=== PATIENT | male | born 1930 | race Caucasian/White ===

== ENCOUNTER 2016-11-12 01:27 | Emergency (ER) | payer MEDICARE ==
[~2016-11-12] VITALS: Ht 182.8 cm; Wt 106.6 kg
[~2016-11-12 01:27] MED LIST: ALPHA LIPOIC; AMARYL2 MG PO; ASA; ASPIRIN FOR CHI81 MG PO; CARVEDILOL25 MG PO; CELEBREX100 MG PO; CINNAMON; DILTIAZEM CD120 MG; DILTIAZEM CD240 MG PO; GABAPENTIN100 M2 PO; GLIMEPIRIDE; JANUVIA100 MG PO; JANUVIA25 MG; LOVASTATIN; LOVASTATIN20 MG PO; METFORMIN500 MG; NEURONTIN100 MG PO; NORTRIPTYLINE10 MG; OMEPRAZOLE20 MG; PROSCAR5 MG; QUINAPRIL5 MG; TAMSULOSIN HYD0.4 MG; TOPIRAMATE25 M1 PO; TRAZODONE HCL50 MG; WARFARIN SOD5 MG; ZOLOFT100 MG; ZOLOFT100 MG PO; [UNRECOGNIZED DRUG - OTHER]
[2016-11-12 01:54] LABS: BASO % 0.3 % (0.0-1.0); EOS # 0.6 10*3/uL (0.0-0.4); EOS % 5.5 % (1.0-4.0); HEMATOCRIT 28.7 % (42.0-52.0); HEMOGLOBIN 9.3 g/dl (14.0-18.0); IG # 0.1 10*3/uL (0.0-0.1); LYMPH # 1.7 10*3/uL (1.3-4.4); LYMPH % 14.2 % (27.0-41.0); MEAN CELL VOLUME 77.6 fl (80.0-94.0); MEAN CORPUSCULAR HGB 25.1 pg (27.0-31.0); MEAN CORPUSCULAR HGB CONC 32.4 g/dl (33.0-37.0); MEAN PLATELET VOLUME 9.3 fl (9.6-12.3); MONO # 1.1 10*3/uL (0.1-1.0); MONO % 9.3 % (3.0-9.0); NEUT # 8.2 10*3/uL (2.3-7.9); NEUT % 70.2 % (47.0-73.0); PLATELET COUNT AUTOMATED 218 10*3/uL (130-400); RED CELL DISTRI WIDTH 17.1 % (0-14.5); WHITE BLOOD COUNT 11.7 10*3/uL (4.8-10.8)
[2016-11-12 02:09] LABS: BILIRUBIN NEGATIVE (NEGATIVE); BLOOD NEGATIVE (NEGATIVE); CLARITY SL CLOUDY (CLEAR); COLOR YELLOW (YELLOW); GLUCOSE NEGATIVE (NEGATIVE); KETONE NEGATIVE (NEGATIVE); LEUKO ESTERASE NEGATIVE (NEGATIVE); NITRITE NEGATIVE (NEGATIVE); PH 5.5 (5.0-9.0); PROTEIN TRACE (NEGATIVE); SPECIFIC GRAVITY 1.015 (1.005-1.030); UROBILINOGEN 0.2 E.U./dl (0.2-1.0)
[2016-11-12 02:10] LABS: ALBUMIN 2.6 gm/dl (3.1-4.5); ALKALINE PHOSPHATASE 72 U/L (45-117); BILIRUBIN, TOTAL 0.3 mg/dl (0.2-1.0); BUN 22 mg/dl (7-24); CARBON DIOXIDE 20 mmol/L (21-32); CHLORIDE 106 mmol/L (98-107); EST GLOM FILT AFRICAN AMERICAN > 60 ml/min; GLUCOSE 207 mg/dL (65-99); POTASSIUM 3.9 mmol/L (3.5-5.1); SGOT/AST 28 IU/L (3-35); SGPT/ALT 33 U/L (12-78); SODIUM 133 mmol/L (136-145); TOTAL PROTEIN 6.4 gm/dL (6.4-8.2)
[2016-11-12] MEDS ORDERED: ATARAX,VISTARIL50 MG PO (02:11)
[2016-11-12] MEDS ORDERED: B COMPLEX1 EACH PO (02:12)
[2016-11-12] MEDS ORDERED: DOCUSATE SODIU100 M2 PO (02:12)
[2016-11-12] MEDS ORDERED: ESCITALOPRAM OX20 MG PO (02:13)
[2016-11-12] MEDS ORDERED: QUINAPRIL5 MG PO (02:13)
[2016-11-12 02:15] LABS: BACTERIA 2+; RBC 16-20 rbc/hpf (0-2); URINE REFLEX COMMENT YES (NO); WBC 16-20 wbc/hpf (0-5)
[2016-11-12] MEDS ORDERED: REMERON15 M2 PO (02:15)
[2016-11-12] MEDS ORDERED: TOPAMAX25 M3 PO (02:15)
[2016-11-12] MEDS ORDERED: LEVOTHYROXIN0.075 M1 PO (02:16)
[2016-11-12] MEDS ORDERED: LEVEMIR FLEX100 U/ML SC (02:16)
[2016-11-12 03:32] VITALS: BP 113/50
[2016-11-12] MEDS ORDERED: CIPRO250 MG PO (04:16)
== END 2016-11-12 04:54 | disposition home or self-care (01) ==
LOC: ED 01:27
PROVIDERS: Physician Assistant
DX: N39.0 Urinary tract infection, site not specified (principal); Z88.8 Allergy status to other drugs, medicaments and biological substances; Z79.82 Long term (current) use of aspirin; Z79.899 Other long term (current) drug therapy; Z79.02 Long term (current) use of antithrombotics/antiplatelets

== ENCOUNTER → 2017-04-09 | Outpatient (CLI) | payer MEDICARE ==
[~2017-04-09] MED LIST changes: +ATARAX,VISTARIL50 MG PO; +B COMPLEX1 EACH PO; +CIPRO250 MG PO; +DOCUSATE SODIU100 M2 PO; +ESCITALOPRAM OX20 MG PO; +LEVEMIR FLEX100 U/ML SC; +LEVOTHYROXIN0.075 M1 PO; +QUINAPRIL5 MG PO; +REMERON15 M2 PO; +TOPAMAX25 M3 PO
[2017-04-09 10:50] LABS: ALBUMIN 3.1 gm/dl (3.1-4.5); CREATININE 1.44 mg/dL (0.70-1.30); POTASSIUM 4.3 mmol/L (3.5-5.1); TOTAL PROTEIN 7.4 gm/dL (6.4-8.2)
== END | disposition home or self-care (01) ==
LOC: LAB 09:54 → MRI 10:00
DX: M48.061 Spinal stenosis, lumbar region without neurogenic claudication (principal); M41.26 Other idiopathic scoliosis, lumbar region

== ENCOUNTER → 2017-06-04 | Outpatient (CLI) | payer MEDICARE | END | disposition home or self-care (01) | LOC: MRI 01:37 | DX: R26.81 Unsteadiness on feet (principal); M79.604 Pain in right leg; R53.1 Weakness; I10 Essential (primary) hypertension; E11.9 Type 2 diabetes mellitus without complications ==

== ENCOUNTER → 2017-08-27 | Outpatient (CLI) | payer MEDICARE ==
--- NOTE | ~2017-08-27 | SLPPOC ---
[place], [place] LUMP ROOM SUPERVISOR PLAN OF CARE NAME: JUANITA RODRÍGUEZ UNIT #: [id number] ROOM: DOCTOR: JERRY ERICKSON MD Speech Language Pathology Plan of Care Page 1 1 (Initial Evaluation) of Patient Name: JUANITA RODRÍGUEZ Date: 08/27/2017 11:52 AM : 1930 SOC Date: 08/27/2017 [facility] Provider #: [id number] Treating Clinician: FLACO Salgado-LUMP ROOM SUPERVISOR Referring Physician: JERRY ERICKSON Medicare #: 1 MEBFHFMD Visits From SOC: Onset Date Description Code Primary Diagnosis: 08/22/2017 A0000 NO DIAGNOSIS SENT TO THE [facility] INTERFACE Subjective Comments: Initial evaluation created to initiate the electronic medical record. Please see [place] for details. Initial Level Goals Functional Limitation Reporting Swallowing G8996 - Swallowing functional limitation, current status at therapy episode outset and at reporting intervals Current Status: CK - At least 40 percent but less than 60 percent impaired, limited or restricted G8997 - Swallowing functional limitation, projected goal status, at therapy episode outset, at reporting intervals, and at discharge or to end reporting Goal Status: CK - At least 40 percent but less than 60 percent impaired, limited or restricted G8998 - Swallowing functional limitation, discharge status, at discharge from therapy or to end reporting Discharge Status: CK - At least 40 percent but less than 60 percent impaired, limited or restricted 08/27/2017 11:53:23 AM JERRY ERICKSNO Date/Time FLACO Salgado-LUMP ROOM SUPERVISOR Date I certify the need for these services furnished under this plan of treatment while under my care. State License #: [id number] CM:SLPPOC 1157 1157 IS THERAPY [facility]
--- NOTE | ~2017-08-27 | SLPIE ---
[place], [place] STICK ROLLER INITIAL EVALUATION NAME: JUANITA RODRÍGUEZ UNIT #: [id number] ROOM: DOCTOR: JERRY ERICKSON MD Speech Language Pathology Initial Evaluation Page 1 1 of Patient Name: JUANITA RODRÍGUEZ Date: 08/27/2017 11:52 AM : 1930 SOC Date: 08/27/2017 [facility] Provider #: [id number] Treating Clinician: FLACO Salgado-ADRIANA Referring Physician: JERRY ERICKSON Patient Information Address: [address] [place] [address] Physician: JERRY ERICKSON Physician #: [facility], [facility], Zip: [place] [address] Occupation: Unknown # of Approved Visits: 0 Gender: Male [employer] Former: LONDON RODRÍGUEZ Medicare #: MEBFHFMD Rehabilitation Information / History Onset Date Code Description Primary Diagnosis: 08/22/2017 A0000 NO DIAGNOSIS SENT TO THE [facility] INTERFACE Subjective Comments: Initial evaluation created to initiate the electronic medical record. Please see ufindads for details. Rehabilitation Information / History Clinical Findings Functional Goals Functional Limitation Reporting Swallowing G8996 - Swallowing functional limitation, current status at therapy episode outset and at reporting intervals Current Status: CK - At least 40 percent but less than 60 percent impaired, limited or restricted G8997 - Swallowing functional limitation, projected goal status, at therapy episode outset, at reporting intervals, and at discharge or to end reporting Goal Status: CK - At least 40 percent but less than 60 percent impaired, limited or restricted G8998 - Swallowing functional limitation, discharge status, at discharge from therapy or to end reporting Discharge Status: CK - At least 40 percent but less than 60 percent impaired, limited or restricted 08/27/2017 11:53:23 AM FLACO Salgado-ADRIANA Date/Time [place], [place] STICK ROLLER INITIAL EVALUATION NAME: JUANITA RODRÍGUEZ UNIT #: [id number] ROOM: DOCTOR: JERRY ERICKSON MD [facility] License #: [id number] CM:BONI 1157 1157 IS THERAPY [facility]
--- NOTE | ~2017-08-27 | PROC NOTE ---
[place], [place] PROCEDURE NOTE NAME: JUANITA RODRÍGUEZ [facility] #: [id number] UNIT #: [id number] ROOM: DOCTOR: AUSTEN EDWARDS BIRTHDATE: [birth year] DOS: 08/27/2017 MODIFIED BARIUM SWALLOW. ORDERING PHYSICIAN: Dr. García. RADIOLOGIST: Dr. Larsen. BACKGROUND INFORMATION: The patient, an 86-year-old male was seen for modified barium swallow. This test was ordered to determine candidacy for thin liquids. The patient is currently receiving therapy at [facility]. Reports indicate that the patient was hospitalized in [place]. Medical history is significant for respiratory failure with hypoxia, ataxia, dysphagia and GERD. During hospitalization, he underwent prior modified barium swallow studies. He was recommended n.p.o.; however, the patient and spouse declined as they wish for patient to continue eating orally. He has been showing progress. He is currently on a regular diet with honey-thick liquids. The patient is scheduled to be discharged to home soon and would like to be able to resume thin liquids if possible. Therefore, this assessment is being conducted. The patient was alert and able to follow all commands. On this date, respiratory status was within normal limits. Oral peripheral examination revealed presence of upper and lower dentures with adequate fit reported. Lingual, labial, and buccal skills were within normal limits in terms of strength, range of motion, and coordination. The patient was able to volitionally cough and swallow. METHODS AND MATERIALS USED FOR THE EXAM: The patient was positioned in the lateral plane and the examination was viewed under fluoroscopy. The patient was presented with a variety of consistencies to assess swallowing skills including applesauce mixed with barium presented in half teaspoon amounts, barium-coated cookie given in bite size piece and nectar and honey-thick barium taken by cup and in single sip size amounts. ORAL PHASE: The patient achieved adequate labial seal around cup and spoon with no anterior loss. Bolus formation and transit were adequate. Tongue to palate contact was adequate. Tongue to posterior pharyngeal wall contact was moderately impaired. [place] functioning was intact. PHARYNGEAL PHASE: The pharyngeal swallow occurred within a timely manner. Laryngeal elevation and epiglottic function were reduced with nectar thick liquid and silent aspiration during the swallow occurred with nectar thick liquid. No penetration or aspiration occurred with any other consistency. Due to the patient's reduced tongue to posterior pharyngeal wall contact, pooling in the vallecula did occur with consistencies given. He was able to clear most of the residue with cues to re-swallow. ESOPHAGEAL PHASE: This phase of the swallow was not formally assessed during this exam. IMPRESSIONS AND RECOMMENDATIONS: Based upon assessment results, this 86-year-old patient presents with a mild oral and moderate pharyngeal dysphagia. [place], [place] PROCEDURE NOTE NAME: JUANITA RODRÍGUEZ UNIT #: [id number] ROOM: DOCTOR: AUSTEN EDWARDS BIRTHDATE: [birth year] It is recommended that he continue with regular diet and honey-thick liquids with use of strategies such as alternating liquids and solids and double swallows. Recommend the patient continue with dysphagia therapy and undergo a followup modified barium swallow in 4 weeks to determine progress. Results and recommendations were shared with the patient and his and they verbalized understanding. A written copy of results and recommendations was provided for education of [facility] staff. Thank you very much for this referral. Should you have any questions regarding this patient, please contact the speech pathologist at [phone]. AUSTEN EDWARDS JERRY GARCÍA MD CM:PROCNOTE:PROCEDURE NOTE 1140 1253 AUSTEN EDWARDS
--- NOTE | ~2017-08-27 | SLPPN ---
[place], [place] SPECIAL EDUCATION PARAPROFESSIONAL PROGRESS NOTE NAME: JUANITA RODRÍGUEZ UNIT #: [id number] ROOM: DOCTOR: JERRY ERICKSON MD Speech Language Pathology Treatment Note Page 1 1 of Patient Name: JUANITA RODRÍGUEZ Date: 08/27/2017 11:53 AM : 1930 SOC Date: 08/27/2017 [facility]: [facility] Provider #: [id number] Treating Clinician: FLACO Salgado-ADRIANA Referring Physician: JERRY ERICKSON Onset Date Description Code Primary Diagnosis: 08/22/2017 A0000 NO DIAGNOSIS SENT TO THE [facility] INTERFACE Time In: 10:00 AM Time Out: 11:00 AM SPECIAL EDUCATION PARAPROFESSIONAL Interventions and CPT Codes Consisted of: CPT Code Modifiers Minutes Units MOTION FLUOROSCOPY/SWALLOW 79143 60 1 Total Minutes: 60 Total Timed Minutes: 0 Total Untimed Minutes: 60 Total Units: 1 Total Timed Units: 0 Total Untimed Units: 1 08/27/2017 11:54:08 AM CORA Salgado Date/Time State License #: [id number] CM:ADRIANAPN 1157 1157 IS THERAPY RED
== END | disposition home or self-care (01) ==
LOC: RAD/SH 03:48
DX: R13.13 Dysphagia, pharyngeal phase (principal)

== ENCOUNTER → 2017-10-03 | Outpatient (CLI) | payer MEDICARE ==
--- NOTE | ~2017-10-03 | PROC NOTE ---
[place], [place] PROCEDURE NOTE NAME: JUANITA RODRÍGUEZ [facility] #: [id number] UNIT #: [id number] ROOM: DOCTOR: JERRYAUSTEN BIRTHDATE: [birth year] DOS: 10/03/2017 MODIFIED BARIUM SWALLOW. ORDERING PHYSICIAN: Dr. Rex Porter. RADIOLOGIST: Dr. Larsen. BACKGROUND INFORMATION: The patient, an 86-year-old male who was seen for a modified barium swallow. This test was ordered to assess candidacy to resume thin liquids. This patient is known to this clinician as he is receiving home health services for dysphagia. The patient currently receives a regular diet and honey-thick liquids due to history of aspiration. The patient is progressing well in therapy and is anxious to resume thin liquids. Further medical history includes dysphagia, GERD and respiratory failure with hypoxia. For today's assessment, the patient was alert and able to follow all commands. Oral peripheral examination revealed presence of upper and lower denture with adequate fit. Lingual, labial, and buccal skills were within normal limits in terms of strength, range of motion, and coordination. The patient underwent a prior modified barium swallow 08/27/2017. Results revealed pooling in the vallecula and silent aspiration with thick liquids. He was recommended to continue with honey thickened liquids. METHODS AND MATERIALS USED FOR THE EXAM: The patient was positioned in the lateral plane and the exam was viewed under fluoroscopy. The patient was presented with a variety of consistencies to assess swallowing skills including applesauce mixed with barium presented in half teaspoon amounts, barium-coated cookie taken in bite size piece and nectar thick and thin liquid barium taken by cup. ORAL PHASE: The patient achieved adequate labial seal around cup and spoon with no anterior loss. Bolus formation and transit were adequate. Tongue to palate contact was within normal limits. Tongue to posterior pharyngeal wall contact was mildly impaired with all consistencies. Velar functioning was within normal limits with no nasal regurgitation. PHARYNGEAL PHASE: The pharyngeal swallow occurred within a timely manner. High laryngeal elevation was reduced. Penetration occurred during the swallow with nectar thick barium. This occurred when patient swallowed a large sip. When he was cued to take a smaller sip, no penetration occurred with nectar thick or with thin barium. No aspiration occurred with any consistency. Pooling in the vallecula did occur with consistencies; however, this mostly cleared with re-swallow or liquid wash. ESOPHAGEAL PHASE: This phase of the swallow was not formally assessed during this exam. IMPRESSIONS AND RECOMMENDATIONS: Based upon assessment results, this 86-year-old patient presents with a mild oropharyngeal dysphagia. He displayed reduced tongue to posterior pharyngeal wall contact resulting in pooling in the [place], [place] PROCEDURE NOTE NAME: JUANITA RODRÍGUEZ UNIT #: [id number] ROOM: DOCTOR: AUSTEN EDWARDS BIRTHDATE: [birth year] vallecula, higher laryngeal elevation was reduced and silent penetration occurred during the swallow with large sip of nectar thick liquid. When cued to take smaller sips, no penetration occurred with liquids and no aspiration occurred with any consistency. Recommend the patient receive a regular diet and thin liquids. Recommend implementation of safe swallow strategies such as upright positioning for meals, small bites and sips, alternating liquids and solids and double swallows after every couple of bites. Continued home health therapy is recommended for further strengthening of pharyngeal muscles, education and use of strategies. Results and recommendations were shared with the patient and his spouse and they verbalized understanding. Thank you very much for this referral. Should you have any questions regarding this patient, please contact the speech pathologist at [phone]. AUSTEN EDWARDS CM:PROCNOTE:PROCEDURE NOTE 1254 1317 AUSTEN EDWARDS
--- NOTE | ~2017-10-03 | SLPIE ---
[place], [place] BELT TENDER INITIAL EVALUATION NAME: JUANITA RODRÍGUEZ UNIT #: [id number] ROOM: DOCTOR: JEREMY REDDY Speech Language Pathology Initial Evaluation Page 1 1 of Patient Name: JUANITA RODRÍGUEZ Date: 10/03/2017 11:30 AM : 1930 SOC Date: 10/03/2017 [facility]: [facility] Provider #: [id number] Treating Clinician: FLACO Salgado-ADRIANA Referring Physician: JEREMY REDDY Patient Information Address: [address] [place] [address] Physician: JEREMY REDDY Physician #: [facility], [facility], Zip: [place], [place] [address] Occupation: Unknown # of Approved Visits: 0 Gender: Male Valve Repairer: LONDON RODRÍGUEZ Medicare #: MEBFHFMD Rehabilitation Information / History Onset Date Code Description Primary Diagnosis: 10/03/2017 A0000 NO DIAGNOSIS SENT TO THE [facility] INTERFACE Subjective Comments: Initial evaluation created to initiate the electronic medical record. Please see THE Football App for details. Rehabilitation Information / History Clinical Findings Functional Goals Functional Limitation Reporting Swallowing G8996 - Swallowing functional limitation, current status at therapy episode outset and at reporting intervals Current Status: CJ - At least 20 percent but less than 40 percent impaired, limited or restricted G8997 - Swallowing functional limitation, projected goal status, at therapy episode outset, at reporting intervals, and at discharge or to end reporting Goal Status: CJ - At least 20 percent but less than 40 percent impaired, limited or restricted G8998 - Swallowing functional limitation, discharge status, at discharge from therapy or to end reporting Discharge Status: CJ - At least 20 percent but less than 40 percent impaired, limited or restricted 10/03/2017 11:31:33 AM FLACO Salgado-ADRIANA Date/Time [place], [place] BELT TENDER INITIAL EVALUATION NAME: JUANITA RODRÍGUEZ UNIT #: [id number] ROOM: DOCTOR: JEREMY REDDY [facility] License #: [id number] CM:SLPIE 1133 1133 IS THERAPY [facility]
--- NOTE | ~2017-10-03 | SLPPOC ---
[place], [place] REMELT OPERATOR PLAN OF CARE NAME: JUANITA RODRÍGUEZ UNIT #: [id number] ROOM: DOCTOR: JEREMY REDDY Speech Language Pathology Plan of Care Page 1 1 (Initial Evaluation) of Patient Name: JUANITA RODRÍGUEZ Date: 10/03/2017 11:30 AM : 1930 SOC Date: 10/03/2017 Provider: [facility] Provider #: [id number] Treating Clinician: FLACO Salgado-REMELT OPERATOR Referring Physician: JEREMY REDDY Medicare #: 1 MEBFHFMD Visits From SOC: Onset Date Description Code Primary Diagnosis: 10/03/2017 A0000 NO DIAGNOSIS SENT TO THE [facility] INTERFACE Subjective Comments: Initial evaluation created to initiate the electronic medical record. Please see Cigital for details. Initial Level Goals Functional Limitation Reporting Swallowing G8996 - Swallowing functional limitation, current status at therapy episode outset and at reporting intervals Current Status: CJ - At least 20 percent but less than 40 percent impaired, limited or restricted G8997 - Swallowing functional limitation, projected goal status, at therapy episode outset, at reporting intervals, and at discharge or to end reporting Goal Status: CJ - At least 20 percent but less than 40 percent impaired, limited or restricted G8998 - Swallowing functional limitation, discharge status, at discharge from therapy or to end reporting Discharge Status: CJ - At least 20 percent but less than 40 percent impaired, limited or restricted 10/03/2017 11:31:33 AM JEREMY REDDY Date/Time FLACO Salgado-ADRIANA Date I certify the need for these services furnished under this plan of treatment while under my care. State License #: [id number] CM:SLPPOC 1133 1133 IS THERAPY [facility]
--- NOTE | ~2017-10-03 | SLPPN ---
[place], [place] AUTO ADJUDICATION SPECIALIST PROGRESS NOTE NAME: JUANITA RODRÍGUEZ UNIT #: [id number] ROOM: DOCTOR: JEREMY REDDY Speech Language Pathology Treatment Note Page 1 1 of Patient Name: JUANITA RODRÍGUEZ Date: 10/03/2017 11:31 AM : 1930 SOC Date: 10/03/2017 Provider: [facility] Provider #: [id number] Treating Clinician: FLACO Salgado-ADRIANA Referring Physician: JEREMY REDDY Onset Date Description Code Primary Diagnosis: 10/03/2017 A0000 NO DIAGNOSIS SENT TO THE [facility] INTERFACE Time In: 10:30 AM Time Out: 11:30 AM AUTO ADJUDICATION SPECIALIST Interventions and CPT Codes Consisted of: CPT Code Modifiers Minutes Units MOTION FLUOROSCOPY/SWALLOW 02448 60 1 Total Minutes: 60 Total Timed Minutes: 0 Total Untimed Minutes: 60 Total Units: 1 Total Timed Units: 0 Total Untimed Units: 1 10/03/2017 11:32:22 AM CORA Salgado Date/Time State License #: [id number] CM:ADRIANAPN 1133 1133 IS THERAPY [facility]
== END | disposition home or self-care (01) ==
LOC: RAD/SH 10:11
DX: R13.10 Dysphagia, unspecified (principal)

== ENCOUNTER 2018-03-28 03:53 | Inpatient (IN) | payer OTHER, MEDICARE ==
[~2018-03-28] VITALS: Ht 182.8 cm; Wt 113.0 kg
--- NOTE | ~2018-03-28 | PR ---
[place], [place] PROGRESS NOTE NAME: [id number] UNIT #: [id number] ROOM: 310 DOCTOR: REBECCA LEVINE MD BIRTHDATE: [birth year] DOS: 04/01/2018 CHIEF COMPLAINT: The patient was sleeping and hard to arouse. SUMMARY OF THE VISIT: The patient was attempted to be interviewed while he was resting quietly in bed. After multiple attempts to call his name, he did finally open his eyes and mouth the word morning, but then fell back to sleep. He was pleasant and cooperative, still somewhat confused. Nurses report that overall he has had a significant improvement and has been much more compliant. MENTAL STATUS: He is alert and oriented to person, place, very approximate to time. Mood does seem to be trending towards euthymia. Affect is more appropriate. There is no jc or hypomania. Short term memory continues to be problematic. PLAN: I will increase his Exelon patch from 9.5 to 13.3 mg daily. This should help improve and maintain ADLs, behavior and cognition. We will engage in individual and brush milieu activity with the plan to return to the least restrictive environment when psychiatrically stable. REBECCA LEVINE MD CM:PNTRANS [id number] REBECCA LEVINE MD 04/02/18 0323 interface
--- NOTE | ~2018-03-28 | DS ---
[place], [place] DISCHARGE SUMMARY [id number] UN[facility] #: [id number] ROOM: 310 DOCTOR: REBECCA LEVINE MD BIRTHDATE: [birth year] DOS: 04/02/2018 CHIEF COMPLAINT: "This crying has gotten so bad, I can't stop it." HISTORY OF PRESENT ILLNESS: This is an 87-year-old white male who presented to the Emergency Room at [facility] with a chief complaint of increased depression. He reports that he has battled this depression now for months, but it has worsened in the last 3-4 weeks. 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 He does find that he has been eating excessively. He also reports an increased crying spells. The vast majority of these crying spells; however, come on for no reason at all and he does not link them to the depression rather they are spontaneous and occur haphazardly. He has been on Cymbalta now for some time, but states it has been ineffective at relieving his depression. He is admitted now to rule out organic factors, to stabilize on medication, to engage in individual and brush milieu activity and then determine the least restrictive environment to which he could return. SUMMARY OF HOSPITAL COURSE: The patient was admitted to the unit where his Depakote was changed from being given t.i.d. to Depakote ER 1500 mg at bedtime to simplify his regimen. His Cymbalta was discontinued due to ineffectiveness and he was started on Remeron 15 mg at bedtime with excellent results. His crying spells seemed very consistent with pseudobulbar affect, so Nuedexta 20-10 one a day was started. This had an almost immediate impact on discontinuing the crying spells. Aricept was discontinued in lieu of Exelon patch 4.6 mg daily, which was rapidly titrated up to its maximum dose of 13.3 daily with excellent results and no side effects. Namenda was added and it was brought to 5 mg b.i.d. before discharge. With these medication changes, he had a remarkable and dramatic improvement, sleep normalized, energy improved, appetite leveled off. He was able to attend to his ADLs. His crying spells almost totally abated. He voiced positive plans for the future and was able to be discharged then back home on 04/02/2018. MENTAL STATUS AT DISCHARGE: He is alert and oriented with time gaps. Mood does seem to be strongly trending towards euthymia. Affect is much more appropriate. There is no jc or hypomania. There are no overt auditory or visual hallucinations. No delusions, no paranoia. Short-term memory has gaps, otherwise he is intact. 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 DISPOSITION: All of his prescriptions have been e-scribed to [facility]. Aftercare will be in the community per his wishes and manager social services. The patient is medically and psychiatrically stable. [place], [place] DISCHARGE SUMMARY NAME: JUANITA RODRÍGUEZ UNIT #: [id number] ROOM: 310 DOCTOR: REBECCA LEVINE MD BIRTHDATE: [birth year] REBECCA LEVINE MD CM:DISCHCURT 6 [phone] REBECCA LEVINE MD 04/02/18 171 interface
--- NOTE | ~2018-03-28 | PR ---
[place], [place] PROGRESS NOTE NAME: [id number] UNIT #: [id number] ROOM: 310 DOCTOR: REBECCA LEVINE MD BIRTHDATE: [birth year] DOS: 03/31/2018 CHIEF COMPLAINT: "I am feeling better. I am sleeping and eating better." SUMMARY OF THE VISIT: The patient was interviewed as he was finishing his breakfast in the dining area. He stopped and engaged in conversation with me. He did not cry once during the entire interview. He reports to me that he is sleeping much better than he did prior to coming into the hospital and his appetite is good. This was further evidenced by the fact that he had eaten his entire breakfast tray. He voiced no side effects and states that he is tolerating the current medication regimen well. MENTAL STATUS: He is alert and oriented to person, place, approximate to time. Mood does seem to be trending towards euthymia. Affect is more appropriate. There is no jc or hypomania. There are no gross psychotic symptoms. Short term memory is problematic. Otherwise, he is intact. PLAN: I will increase his Nuedexta to the therapeutic level giving 20-10 q.12 hours. Engage in individual and brush milieu activity, returning to the least restrictive environment when psychiatrically stable. REBECCA LEVINE MD CM:PNTRANS [id number] REBECCA LEVINE MD 04/01/18 0447 interface
--- NOTE | ~2018-03-28 | WRIGHTHP ---
[place], [place] PATIENT HISTORY AND PHYSICAL EXAM NAME: JUANITA RODRÍGUEZ [facility] #: [id number] UNIT #: [id number] ROOM: 310 DOCTOR: REBECCA LEVINE MD BIRTHDATE: [birth year] DOS: 03/28/2018 INITIAL PSYCHIATRIC EVALUATION CHIEF COMPLAINT: "This crying has gotten so bad, I can't stop it." HISTORY OF PRESENT ILLNESS: This is an 87-year-old white male who presented to the Emergency Room at [facility] with the chief complaint of increased depression. The patient reports that he has battled depression now for months, but it has been worse in the last 3 or 4 weeks. During this period of time, he endorses poor sleep with difficulty falling asleep, sleep continuity disturbance, professional nurse awakening. He wakes up, very fatigued already. He has been eating excessively. He also reports increased crying spells. The vast majority of the crying spells, however, he reports come on for no reason at all and he does not necessarily linked them to the depression rather they are spontaneous crying spells. The patient has been on Cymbalta, but states it has been ineffective at relieving his depression. PAST MEDICAL HISTORY: Remarkable for a recent diagnosis of Alzheimer dementia as well as a history of hypertension. MENTAL STATUS: The patient does not smoke cigarettes. He does not drink alcohol nor does he use any illicit drugs. STRENGTHS: Ambulatory, supportive family, good verbal skills. WEAKNESSES: Willingness to seek out help. Cognitive decline. MENTAL STATUS: He is alert and oriented to person, place, very approximate to time. Mood does seem to be depressed. During the period of time, he talked with me. He burst into tears when discussing nothing that was emotionally charged. There is no jc or hypomania noted. There are no overt auditory or visual hallucinations. No delusions, no paranoia. He does have some mild gaps in short term memory. DIAGNOSES: Major depression, recurrent, severe and pseudobulbar affective disorder. PLAN: I have changed his Depakote to Depakote ER 1500 mg at bedtime. I have discontinued Cymbalta due to ineffectiveness, stopped his Aricept in lieu of the combination of Exelon patch and Namenda. I will also start him on Nuedexta 20/10 one tablet daily. Given the severe sleep issues he is having, I will start him on Remeron, but cognant that it does not stimulate his appetite more than it is. We will engage him in individual and brush milieu activity, returning home or the least restrictive environment when psychiatrically stable. [place], [place] PATIENT HISTORY AND PHYSICAL EXAM NAME: JUANITA RODRÍGUEZ UNIT #: [id number] ROOM: 310 DOCTOR: REBECCA LEVINE MD BIRTHDATE: [birth year] REBECCA LEVINE MD CM:HISPHYS:PATIENT HISTORY AND PHYSICAL EXAMINATION [id number] REBECCA LEVINE MD 05/05/18 1449 interface
[~2018-03-28 03:53] MED LIST changes: +LEVEMIR FL100 UNIT/1 SC; -LEVEMIR FLEX100 U/ML SC; -LEVOTHYROXIN0.075 M1 PO; +OMEPRAZOLE MAGN20 MG PO; -OMEPRAZOLE20 MG; +PROSCAR5 M1 PO; -PROSCAR5 MG; +SYNTHROID,LEVO75 MCG PO; -WARFARIN SOD5 MG; +WARFARIN SOD5 MG PO
[2018-03-28] MEDS ORDERED: METOPROLOL TART50 M1 PO (03:57)
[2018-03-28] MEDS ORDERED: K-LOR 20MEQ20 ME1 PO (03:59)
[2018-03-28] MEDS ORDERED: LASIX40 MG PO (04:00)
[2018-03-28] MEDS ORDERED: LYRICA75 M1 PO (04:02)
[2018-03-28] MEDS ORDERED: TRAMADOL HCL50 MG PO (04:05)
[2018-03-28] MEDS ORDERED: PRIMIDONE50 MG PO (04:15)
[2018-03-28] MEDS ORDERED: CYMBALTA30 MG PO (04:20)
[2018-03-28] MEDS ORDERED: DONEPEZIL HYDRO10 MG PO (04:23)
[2018-03-28] MEDS ORDERED: BUSPAR5 MG PO (04:25)
[2018-03-28] MEDS ORDERED: VITAMIN D33000 UNIT PO (04:26)
[2018-03-28] MEDS ORDERED: VICTOZA 3-PAK6 MG/ML SC (04:28)
[2018-03-28] MEDS ORDERED: Depakote250 MG PO ×3 (04:29→11:12)
[2018-03-28] MEDS ORDERED: Depakote500 MG PO (04:30)
[2018-03-28] MEDS ORDERED: RISPERIDONE1 MG PO (04:32)
[2018-03-28] MEDS ORDERED: TAMSULOSIN HCL0.4 MG PO (04:33)
[2018-03-28 10:31] VITALS: BP 160/84
[2018-03-28] MEDS ORDERED: WARFARIN SODIUM6 MG PO (11:09)
[2018-03-28] MEDS ORDERED: CYMBALTA60 MG PO (11:47)
[2018-03-28] MEDS ORDERED: RISPERDAL0.5 MG PO (11:49)
[2018-03-28] MEDS ORDERED: DONEPEZIL HCL10 MG PO (11:50)
[2018-03-28] MEDS ORDERED: BUSPIRONE10 MG PO (11:55)
[2018-03-28] MEDS ORDERED: PROAIR HFA8.5 GM INH (12:00)
[2018-03-28] MEDS ORDERED: HYDROCODONE-AC1 EAC1 PO (12:01)
[2018-03-28 15:09] LABS: BASO % 0.5 % (0.0-1.0); EOS # 0.4 10*3/uL (0.0-0.4); EOS % 5.4 % (1.0-4.0); HEMATOCRIT 41.5 % (42.0-52.0); HEMOGLOBIN 13.4 g/dl (14.0-18.0); LYMPH # 1.8 10*3/uL (1.3-4.4); LYMPH % 24.3 % (27.0-41.0); MEAN CELL VOLUME 76.9 fl (80.0-94.0); MEAN CORPUSCULAR HGB 24.8 pg (27.0-31.0); MEAN CORPUSCULAR HGB CONC 32.3 g/dl (33.0-37.0); MEAN PLATELET VOLUME 9.4 fl (9.6-12.3); MONO # 0.8 10*3/uL (0.1-1.0); MONO % 11.3 % (3.0-9.0); NEUT # 4.3 10*3/uL (2.3-7.9); NEUT % 58.1 % (47.0-73.0); PLATELET COUNT AUTOMATED 174 10*3/uL (130-400); RED CELL DISTRI WIDTH 18.2 % (0-14.5); WHITE BLOOD COUNT 7.4 10*3/uL (4.8-10.8)
[2018-03-28 15:16] LABS: INTERNATIONAL NORM RATIO 1.7 (2.0-3.5)
[2018-03-28 15:23] LABS: ALBUMIN 3.2 gm/dl (3.1-4.5); CREATININE 1.51 mg/dL (0.70-1.30); POTASSIUM 4.1 mmol/L (3.5-5.1); TOTAL PROTEIN 7.6 gm/dL (6.4-8.2)
[2018-03-28 15:31] LABS: THYROID STIM HORMONE (HS) 4.35 uIU/ml (0.358-4.75)
[2018-03-28 16:16] LABS: VITAMIN D, 25-HYDROXY 30.5 ng/mL (30-100)
[2018-03-28 17:40] VITALS: BP 180/80
[2018-03-28 18:40] VITALS: BP 159/92
[2018-03-28 19:57] VITALS: BP 124/78
[2018-03-29 07:28] LABS: INTERNATIONAL NORM RATIO 1.6 (2.0-3.5)
[2018-03-29 07:32] VITALS: BP 128/72
[2018-03-29 07:35] LABS: CHOLESTEROL 169 mg/dL (<200); HDL CHOLESTEROL 40 mg/dl (40-60); LDL CHOLESTEROL 94 mg/dL (9-159); TRIGLYCERIDES 175 mg/dl (<150); VLDL CHOLESTEROL 35 mg/dL (6-40)
[2018-03-29 20:00] VITALS: BP 118/70
[2018-03-30 07:04] VITALS: BP 147/82
[2018-03-30 07:14] LABS: CREATININE 1.68 mg/dL (0.70-1.30); POTASSIUM 4.2 mmol/L (3.5-5.1)
[2018-03-30 07:15] LABS: INTERNATIONAL NORM RATIO 1.7 (2.0-3.5)
[2018-03-30 19:48] VITALS: BP 119/65
[2018-03-31 06:45] LABS: INTERNATIONAL NORM RATIO 1.8 (2.0-3.5)
[2018-03-31 08:09] VITALS: BP 108/64
[2018-03-31 20:32] VITALS: BP 126/77
[2018-04-01 07:02] LABS: INTERNATIONAL NORM RATIO 1.9 (2.0-3.5)
[2018-04-01 08:41] VITALS: BP 100/54; BP 100/57
[2018-04-01 20:28] VITALS: BP 115/60
[2018-04-02 06:49] LABS: INTERNATIONAL NORM RATIO 1.9 (2.0-3.5)
[2018-04-02] MEDS ORDERED: DIVALPROEX SOD500 M1 PO (08:18)
[2018-04-02] MEDS ORDERED: NEUDEXT PO (08:18)
[2018-04-02] MEDS ORDERED: EXELON13.3 MG/21 T (08:18)
[2018-04-02] MEDS ORDERED: NAMENDA-5 PO (08:18)
[2018-04-02] MEDS ORDERED: MIRTAZAPINE15 M2 PO (08:18)
[2018-04-02 08:23] VITALS: BP 110/64
== END 2018-04-02 13:30 | disposition home or self-care (01) | DRG 56 ==
LOC: 3N 03:53
PROVIDERS: Internal Medicine; Psychiatry & Neurology Psychiatry
DX: G30.9 Alzheimer's disease, unspecified (principal); N17.0 Acute kidney failure with tubular necrosis; F33.2 Major depressive disorder, recurrent severe without psychotic features; D68.69 Other thrombophilia; F48.2 Pseudobulbar affect; F02.80 Dementia in other diseases classified elsewhere, unspecified severity, without behavioral disturbance, psychotic disturbance, mood disturbance, and anxiety; I12.9 Hypertensive chronic kidney disease with stage 1 through stage 4 chronic kidney disease, or unspecified chronic kidney disease; E11.22 Type 2 diabetes mellitus with diabetic chronic kidney disease; F17.210 Nicotine dependence, cigarettes, uncomplicated; H91.90 Unspecified hearing loss, unspecified ear; K21.9 Gastro-esophageal reflux disease without esophagitis; N18.3 Chronic kidney disease, stage 3 (moderate); E78.5 Hyperlipidemia, unspecified; E03.9 Hypothyroidism, unspecified; E11.65 Type 2 diabetes mellitus with hyperglycemia; E11.42 Type 2 diabetes mellitus with diabetic polyneuropathy; N40.0 Benign prostatic hyperplasia without lower urinary tract symptoms; I48.91 Unspecified atrial fibrillation; Z88.8 Allergy status to other drugs, medicaments and biological substances; Z79.01 Long term (current) use of anticoagulants; Z79.84 Long term (current) use of oral hypoglycemic drugs; Z79.4 Long term (current) use of insulin

== ENCOUNTER 2018-08-08 15:08 | Emergency (ER) | payer MEDICARE ==
[~2018-08-08] VITALS: Ht 182.8 cm; Wt 117.5 kg
[~2018-08-08 15:08] MED LIST changes: +BUSPAR5 MG PO; +BUSPIRONE10 MG PO; +CYMBALTA30 MG PO; +CYMBALTA60 MG PO; +DIVALPROEX SOD500 M1 PO; +DONEPEZIL HCL10 MG PO; +DONEPEZIL HYDRO10 MG PO; +Depakote250 MG PO; +Depakote500 MG PO; +EXELON13.3 MG/21 T; +HYDROCODONE-AC1 EAC1 PO; +K-LOR 20MEQ20 ME1 PO; +LASIX40 MG PO; +LYRICA75 M1 PO; +METOPROLOL TART50 M1 PO; +MIRTAZAPINE15 M2 PO; +NAMENDA-5 PO; +NEUDEXT PO; +PRIMIDONE50 MG PO; +PROAIR HFA8.5 GM INH; +RISPERDAL0.5 MG PO; +RISPERIDONE1 MG PO; +TAMSULOSIN HCL0.4 MG PO; +TRAMADOL HCL50 MG PO; +VICTOZA 3-PAK6 MG/ML SC; +VITAMIN D33000 UNIT PO; +WARFARIN SODIUM6 MG PO
[2018-12-03] MEDS ORDERED: DEPAKOTE500 MG PO (11:41)
[2018-12-03] MEDS ORDERED: DILTIAZEM60 MG PO (11:46)
[2018-12-03] MEDS ORDERED: LEVOXYL88 MCG PO (11:48)
[2018-12-03] MEDS ORDERED: FUROSEMIDE40 MG PO (11:49)
[2018-12-03] MEDS ORDERED: VITAMIN D33000 UNIT PO (11:52)
[2018-12-03] MEDS ORDERED: Mysoline50 MG PO (11:53)
[2018-12-03] MEDS ORDERED: TOUJEO SOL300 UNIT/1 SQ (11:56)
[2018-12-08] MEDS ORDERED: BYDUREON B2 MG/0.85 SQ (17:02)
[2018-12-12] MEDS ORDERED: SYNTHROID,LEVO75 MCG PO (11:51)
[2018-12-12] MEDS ORDERED: TENORMIN25 MG PO (11:51)
== END 2018-08-08 18:26 | disposition home or self-care (01) ==
LOC: ED 15:08
DX: S40.011A Contusion of right shoulder, initial encounter (principal); S30.0XXA Contusion of lower back and pelvis, initial encounter; S00.93XA Contusion of unspecified part of head, initial encounter; S70.01XA Contusion of right hip, initial encounter; Z88.8 Allergy status to other drugs, medicaments and biological substances; Z88.2 Allergy status to sulfonamides; Z79.899 Other long term (current) drug therapy; Z79.4 Long term (current) use of insulin; Z79.84 Long term (current) use of oral hypoglycemic drugs; Z79.01 Long term (current) use of anticoagulants; W19.XXXA Unspecified fall, initial encounter; Y93.89 Activity, other specified; Y92.098 Other place in other non-institutional residence as the place of occurrence of the external cause; Y99.8 Other external cause status

== ENCOUNTER 2018-09-25 23:48 | Inpatient (IN) | payer OTHER, MEDICARE ==
[~2018-09-25] VITALS: Ht 182.8 cm; Wt 120.2 kg
--- NOTE | ~2018-09-25 | PR ---
[place], [place] PROGRESS NOTE NAME: [id number] UNIT #: [id number] ROOM: 315 DOCTOR: REBECCA LEVINE MD BIRTHDATE: [birth year] DOS: 09/28/2018 CHIEF COMPLAINT: "Oh doc, I didn't sleep well again." SUMMARY OF THE VISIT: The patient was interviewed as he was resting quietly in bed. He reports that he got up, had breakfast. He did report that last night he did not sleep well and tossed and turned despite the Rozerem. Otherwise, he feels like his mood is lifting and he is still hopeful that he will be able to be home on his birthday, which is Saturday. MENTAL STATUS: He is alert and oriented with time gaps. Mood does seem to be trending towards euthymia. Affect is more appropriate. There is no jc or hypomania. There is no gross psychosis. He denies suicidal thoughts or plan. Memory has some mild gaps, especially for time. PLAN: I will discontinue his Rozerem in lieu of Restoril 15 mg at bedtime and increase his Exelon patch from 4.6 to 9.5 mg daily. We will monitor and support, engage in individual and brush milieu activity, returning to the least restrictive environment when psychiatrically stable. REBECCA LEVINE MD CM:PNTRANS [id number] REBECCA LEVINE MD 09/28/18 1521 interface
--- NOTE | ~2018-09-25 | EKG ---
[place], [place] ELECTROCARDIOGRAM REPORT NAME: JUANITA RODRÍGUEZ UNIT #: [id number] ROOM: 315 DOCTOR: MARIVEL DRAFT REPORT BIRTHDATE: [birth year] [facility] Test Date: 2018-09-26 Test Time: 00:17:30 Pat Name: JUANITA RODRÍGUEZ Department: ER Room: 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
--- NOTE | ~2018-09-25 | DS ---
[place], [place] DISCHARGE SUMMARY NAME: JUANITA RODRÍGUEZ [facility] #: [id number] UNIT #: [id number] ROOM: 315 DOCTOR: REBECCA LEVINE MD BIRTHDATE: [birth year] DOS: 09/29/2018 CHIEF COMPLAINT: "Oh doctor, I have had these crying spells, I can't stop them, I can't sleep at night." HISTORY OF PRESENT ILLNESS: This is an 88-year-old white male known to me from previous admission here. The patient presents to the Emergency Room at [facility]. He presented there stating he is having uncontrollable crying spells that come out of the blue. He does also admits to feeling depressed and states that he has not been sleeping well with difficulty falling asleep, sleep continuity disturbance, kohinoor operator awakening, anergia, anhedonia, hopeless, helpless feelings, crying spells, and inability to cope. He is admitted now to rule out organic factors and to attempt to stabilize on medication. SUMMARY OF HOSPITAL COURSE: The patient was admitted where he was maintained on his Nuedexta 20-10 one tablet twice daily, Remeron 15 mg at bedtime was added as an antidepressant with good results. Additionally, he was started on Rozerem at first to help him sleep, but this was not strong enough per his report and he was started on Restoril with excellent results where he fell asleep quickly slept through the night and felt refreshed the next day. He was very positive that the combination of the Restoril and Remeron were working on his birthday on Saturday. He did request going home stating that he felt he would be able to sleep much better and do much better in his own environment. He did state that he was not suicidal or homicidal and was positive that these medicines were working and was looking forward to the future. The patient was discharged at that time. MENTAL STATUS AT DISCHARGE: The patient is alert and oriented to person, place and time. Mood does seem to be strongly trending towards euthymia. Affect is much more appropriate. There is no jc, hypomania or gross psychosis. There are no auditory or visual hallucinations, delusions or paranoia. Short-term memory has mild gaps, otherwise he is fully intact. FINAL DIAGNOSES UPON DISCHARGE: Major depression, recurrent and seasonal affective disorder. DISPOSITION: All of his prescriptions have been e-scribed to [facility] except for Restoril, which was printed. He was also given a prescription to obtain a light box for seasonal affective disorder that he will use 30 minutes per morning. The patient will call should any problems arise. At the time of discharge, he was medically stable and psychiatrically stable. [place], [place] DISCHARGE SUMMARY NAME: ANNEJUANITA UNIT #: [id number] ROOM: [facility] DOCTOR: REBECCA LEVINE MD BIRTHDATE: [birth year] REBECCA LEVINE MD CM:ANTONIETA [id number] REBECCA LEVINE MD 09/29/18 1036 interface
--- NOTE | ~2018-09-25 | WRIGHTHP ---
[place], [place] PATIENT HISTORY AND PHYSICAL EXAM NAME: JUANITA RODRÍGUEZ [facility] #: [id number] UNIT #: [id number] ROOM: 315 DOCTOR: REBECCA LEVINE MD BIRTHDATE: [birth year] DOS: 09/26/2018 CHIEF COMPLAINT: "Oh doctor, I have just had these crying spells, I cannot stop them and I don't sleep well at night." HISTORY OF PRESENT ILLNESS: This is an 87-year-old male who was admitted through the Emergency Room at [facility]. The patient had presented there stating that he is having uncontrollable crying spells that come out of the blue. He does admit to feeling depressed, but he also notes that some of these crying spells are not correlated at all with his mood. He endorses poor sleep with difficulty falling asleep, sleep continuity disturbance, early childhood educator aide awakening, anergia, anhedonia, hopeless, helpless feelings, crying spells, and inability to cope. He is admitted now to rule out organic factors and to re-stabilize on medication. PAST MEDICAL HISTORY: Remarkable for atrial fibrillation, Alzheimer's dementia, benign prostatic hyperplasia, diabetic neuropathy, hyperlipidemia, GERD, hypertension, atrial fibrillation, hypothyroidism, pseudobulbar affect, diabetes, major depression. SOCIAL HISTORY: He does not smoke cigarettes or use illicit drugs or drink alcohol. ALLERGIES: LISTED TO ATORVASTATIN, SULFA, TRIMETHOPRIM AND AMBIEN. STRENGTHS: Ambulatory, good verbal skills. WEAKNESSES: Cognitive decline, poor coping skills. MENTAL STATUS: He is alert and oriented to person, place and very approximate to time. Mood does seem to be somewhat depressed with anxious overtones and he does endorse inappropriate irrational crying. There is no jc or hypomania. There is no gross psychosis. Short term memory has gaps. DIAGNOSIS: Major depression, recurrent and pseudobulbar affect, Alzheimer's dementia. PLAN: I have maintained him on his Nuedexta 20-10 one tablet twice daily. I have started him on Remeron 15 mg at bedtime. I will start him on Rozerem as a non-addicting sleep aid 8 mg at bedtime. Will engage in individual and brush milieu activities, returning to the least restrictive environment when psychiatrically stable. [place], [place] PATIENT HISTORY AND PHYSICAL EXAM NAME: JUANITA RODRÍGUEZ UNIT #: [id number] ROOM: 315 DOCTOR: REBECCA LEVINE MD BIRTHDATE: [birth year] REBECCA LEVINE MD CM:HISPHYS:PATIENT HISTORY AND PHYSICAL EXAMINATION [id number] [id number] REBECCA LEVINE MD 09/27/18 0958 interface
[2018-09-25 23:52] VITALS: BP 130/65
[2018-09-26 00:41] LABS: ACT PARTIAL THROMBO TIME 39.6 SECONDS (20.8-31.5); INTERNATIONAL NORM RATIO 2.5 (2.0-3.5)
[2018-09-26 00:51] LABS: BILIRUBIN NEGATIVE (NEGATIVE); BLOOD NEGATIVE (NEGATIVE); CLARITY CLEAR (CLEAR); COLOR YELLOW (YELLOW); GLUCOSE 2+ (NEGATIVE); KETONE NEGATIVE (NEGATIVE); LEUKO ESTERASE NEGATIVE (NEGATIVE); NITRITE NEGATIVE (NEGATIVE); UROBILINOGEN 0.2 E.U./dl (0.2-1.0)
[2018-09-26 00:53] LABS: BASO # 0.1 10*3/uL (0.0-0.1); BASO % 0.7 % (0.0-1.0); EOS # 0.5 10*3/uL (0.0-0.4); EOS % 7.6 % (1.0-4.0); HEMATOCRIT 39.4 % (42.0-52.0); HEMOGLOBIN 12.4 g/dl (14.0-18.0); LYMPH # 2.2 10*3/uL (1.3-4.4); LYMPH % 31.1 % (27.0-41.0); MEAN CELL VOLUME 79.9 fl (80.0-94.0); MEAN CORPUSCULAR HGB 25.2 pg (27.0-31.0); MEAN CORPUSCULAR HGB CONC 31.5 g/dl (33.0-37.0); MEAN PLATELET VOLUME 9.7 fl (9.6-12.3); MONO # 0.7 10*3/uL (0.1-1.0); NEUT # 3.5 10*3/uL (2.3-7.9); NEUT % 49.3 % (47.0-73.0); PLATELET COUNT AUTOMATED 200 10*3/uL (130-400); RED BLOOD COUNT 4.93 10*6/uL (4.50-5.90); RED CELL DISTRI WIDTH 17.4 % (0-14.5)
[2018-09-26 00:57] LABS: BACTERIA TRACE; EPITHELIAL CELLS 0-2; RBC 0-2 rbc/hpf (0-2); WBC 0-2 wbc/hpf (0-5)
[2018-09-26 01:02] LABS: ACETAMINOPHEN (TYLENOL) < 5.0 ug/ml (10-30); ALBUMIN 2.5 gm/dl (3.1-4.5); ALKALINE PHOSPHATASE 92 U/L (45-117); BUN 24 mg/dl (7-24); CHLORIDE 107 mmol/L (98-107); CREATININE 1.79 mg/dL (0.70-1.30); LIPASE 191 U/L (73-393); POTASSIUM 4.4 mmol/L (3.5-5.1); SGOT/AST 26 IU/L (3-35); SGPT/ALT 19 U/L (12-78); SODIUM 140 mmol/L (136-145); TROPONIN I < 0.015 ng/ml (<0.045)
[2018-09-26 01:02] LABS: URINE AMPHETAMINES < 1000 (1000ng/ml); URINE BARBITURATES > 200 (200ng/ml); URINE BENZODIAZEPINES < 200 (200ng/ml); URINE CANNABINOIDS (THC) < 50 (50ng/ml); URINE METHADONE < 300 (300ng/ml); URINE OPIATES < 300 (300ng/ml)
[2018-09-26 01:04] LABS: URINE COCAINE < 300 (300ng/ml); URINE PHENCYCLIDINE < 25 (25ng/ml)
[2018-09-26 07:47] VITALS: BP 112/55
[2018-09-26 10:30] VITALS: BP 122/76
[2018-09-26] MEDS ORDERED: VITAMIN D-32000 UNI1 PO (10:35)
[2018-09-26 11:07] VITALS: BP 122/76
[2018-09-26 15:30] LABS: CREATININE 1.65 mg/dL (0.70-1.30); POTASSIUM 4.3 mmol/L (3.5-5.1)
[2018-09-26 20:33] VITALS: BP 120/61
[2018-09-27 07:34] LABS: BASO # 0.1 10*3/uL (0.0-0.1); BASO % 0.7 % (0.0-1.0); EOS # 0.5 10*3/uL (0.0-0.4); EOS % 6.6 % (1.0-4.0); HEMATOCRIT 41.3 % (42.0-52.0); HEMOGLOBIN 12.7 g/dl (14.0-18.0); LYMPH # 2.1 10*3/uL (1.3-4.4); LYMPH % 29.4 % (27.0-41.0); MEAN CORPUSCULAR HGB 24.9 pg (27.0-31.0); MEAN CORPUSCULAR HGB CONC 30.8 g/dl (33.0-37.0); MEAN PLATELET VOLUME 9.3 fl (9.6-12.3); MONO # 0.8 10*3/uL (0.1-1.0); MONO % 10.9 % (3.0-9.0); NEUT # 3.6 10*3/uL (2.3-7.9); NEUT % 51.7 % (47.0-73.0); NUCLEATED RED BLOOD CELL 0.3 % (0.0-0.0); PLATELET COUNT AUTOMATED 205 10*3/uL (130-400); RED CELL DISTRI WIDTH 17.4 % (0-14.5)
[2018-09-27 07:52] VITALS: BP 132/74
[2018-09-27 08:00] LABS: ALBUMIN 2.6 gm/dl (3.1-4.5); POTASSIUM 4.1 mmol/L (3.5-5.1)
[2018-09-27 08:15] LABS: CREATININE 1.51 mg/dL (0.70-1.30); THYROID STIM HORMONE (HS) 5.18 uIU/ml (0.358-4.75); TOTAL PROTEIN 7.3 gm/dL (6.4-8.2); VALPROIC ACID (DEPAKENE) 38.2 ug/ml (50-100)
[2018-09-27 09:00] LABS: VITAMIN D, 25-HYDROXY 49.7 ng/mL (30-100)
[2018-09-27 19:08] VITALS: BP 129/71
[2018-09-28 07:45] VITALS: BP 132/67
[2018-09-28 19:14] VITALS: BP 103/60
[2018-09-29 08:09] VITALS: BP 98/52
[2018-09-29] MEDS ORDERED: TEMAZEPAM15 M1 PO (09:13)
[2018-09-29] MEDS ORDERED: NEUDEXT PO (09:13)
[2018-09-29] MEDS ORDERED: DIVALPROEX SOD500 M1 PO (09:13)
[2018-09-29] MEDS ORDERED: RIVASTIGMINE1 EAC1 T (09:13)
[2018-09-29] MEDS ORDERED: MIRTAZAPINE15 M2 PO (09:13)
[2018-12-03] MEDS ORDERED: DEPAKOTE500 MG PO (11:41)
[2018-12-03] MEDS ORDERED: DILTIAZEM60 MG PO (11:46)
[2018-12-03] MEDS ORDERED: LEVOXYL88 MCG PO (11:48)
[2018-12-03] MEDS ORDERED: FUROSEMIDE40 MG PO (11:49)
[2018-12-03] MEDS ORDERED: VITAMIN D33000 UNIT PO (11:52)
[2018-12-03] MEDS ORDERED: Mysoline50 MG PO (11:53)
[2018-12-03] MEDS ORDERED: TOUJEO SOL300 UNIT/1 SQ (11:56)
[2018-12-08] MEDS ORDERED: BYDUREON B2 MG/0.85 SQ (17:02)
[2018-12-12] MEDS ORDERED: TENORMIN25 MG PO (11:51)
[2018-12-12] MEDS ORDERED: SYNTHROID,LEVO75 MCG PO (11:51)
== END 2018-09-29 14:25 | disposition home or self-care (01) | DRG 885 ==
LOC: ED 23:48 → EDHOLD 09-26 08:51 → 3N 09-26 08:51
PROVIDERS: Internal Medicine; Nurse Practitioner Family; ADMIT Psychiatry & Neurology Psychiatry
DX: F33.2 Major depressive disorder, recurrent severe without psychotic features (principal); N17.0 Acute kidney failure with tubular necrosis; E43 Unspecified severe protein-calorie malnutrition; E87.2 Acidosis; D68.69 Other thrombophilia; G30.9 Alzheimer's disease, unspecified; D50.9 Iron deficiency anemia, unspecified; F02.80 Dementia in other diseases classified elsewhere, unspecified severity, without behavioral disturbance, psychotic disturbance, mood disturbance, and anxiety; N40.0 Benign prostatic hyperplasia without lower urinary tract symptoms; E78.5 Hyperlipidemia, unspecified; K21.9 Gastro-esophageal reflux disease without esophagitis; E11.65 Type 2 diabetes mellitus with hyperglycemia; E11.49 Type 2 diabetes mellitus with other diabetic neurological complication; E03.9 Hypothyroidism, unspecified; I48.2 Chronic atrial fibrillation; N18.3 Chronic kidney disease, stage 3 (moderate); I12.9 Hypertensive chronic kidney disease with stage 1 through stage 4 chronic kidney disease, or unspecified chronic kidney disease; E11.22 Type 2 diabetes mellitus with diabetic chronic kidney disease; F48.2 Pseudobulbar affect; Z88.2 Allergy status to sulfonamides; Z88.8 Allergy status to other drugs, medicaments and biological substances; Z68.35 Body mass index [BMI] 35.0-35.9, adult

== ENCOUNTER 2019-01-18 22:01 | Inpatient (IN) | payer MEDICARE ==
[~2019-01-18] VITALS: Ht 182.8 cm; Wt 118.4 kg
--- NOTE | ~2019-01-18 | EKG ---
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
--- NOTE | ~2019-01-18 | CON ---
[place], [place] REPORT OF CONSULTATION NAME: [id number] UNIT #: [id number] ROOM: 511 DOCTOR: PHD JESÚS HAGEN BIRTHDATE: [birth year] DOS: 01/20/2019 HISTORY OF PRESENT ILLNESS: The patient is an 88-year-old male referred by the hospitalist with concerns for change in mental status and depression. At the present time, the patient is on the 5th floor at [facility]. Over the past few weeks, his depression has worsened. He has been crying uncontrollably and shouting at his . Per the patient's , he asked her to shoot him and states that he does not want to live. They have 3 sons, one of whom . 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 He denied drug, alcohol and tobacco use. PAST MEDICAL HISTORY: Acute on chronic diastolic congestive heart failure, acute respiratory failure with hypoxia, AFib, Alzheimer disease, BPH, CKD, diabetic neuropathy, dyslipidemia, GERD, hypertension, hypothyroid, major depressive disorder, recurrent, normocytic anemia, pseudobulbar affect, protein-calorie malnutrition, severe systemic inflammatory response syndrome, supratherapeutic INR, tachycardia, tachypnea, type 2 diabetes. MEDICATIONS: Coumadin, vitamin D, Exelon, Proscar, Synthroid, Humalog, Mysoline, Depakote, Tenormin, Remeron, Flomax, Prilosec, Zocor, Nuedexta, Visine, Lasix, Ventolin, Zofran, Tylenol, Rocephin, Lyrica, [place]. NEUROLOGIC: The patient was sitting in bed, in no apparent distress. He was awake, alert and oriented to person and place. He gave the date as 01/24/2002. He knew the current president and past president. He could not name any current events. He could name the most recent holiday is the 08 January. He was able to spell world forward, but not backwards. He could not name any of his medical conditions or his medications. Per his , she is his healthcare power of motorized squad sergeant. Mood was stable. Affect was blunted. He firmly denied suicidal and homicidal ideation, plan, and intent. Speech and language within normal limits conversationally. The patient appeared confused with some short and long-term memory deficits apparent in conversation. He denied any mood lability or depression; however, per his , his depression has been getting worse and he "cries all the time" and expresses his wish for her to shoot him because he cannot do it himself." The patient states that he would be willing to go to the [facility] if his thinks it would be helpful. I spoke with his and she is agreeable to the patient receiving inpatient psychiatric treatment. The patient acknowledged trouble sleeping, stating that he cannot stay asleep. He also has little energy. DIAGNOSIS: Major depressive disorder, recurrent, unspecified; unspecified neurocognitive disorder. PLAN: I discussed the patient with Dr. Kim who stated that the patient may be admitted to the [facility] for further psychiatric treatment to address his symptoms of depression. The patient and his were agreeable to this. Thank you very much for this consult. [place], [place] REPORT OF CONSULTATION NAME: JUANITA RODRÍGUEZ UNIT #: [id number] ROOM: [facility] DOCTOR: NAWAF, PHD JESÚS BIRTHDATE: [birth year] Elana Hagen, PhD CM:CONSTR:REPORT OF CONSULTATION 1609 01/21/19 0122 interface
[~2019-01-18 22:01] MED LIST changes: +BYDUREON B2 MG/0.85 SQ; +DEPAKOTE500 MG PO; +DILTIAZEM60 MG PO; +FUROSEMIDE40 MG PO; +LEVOXYL88 MCG PO; +Mysoline50 MG PO; +RIVASTIGMINE1 EAC1 T; +TEMAZEPAM15 M1 PO; +TENORMIN25 MG PO; +TOUJEO SOL300 UNIT/1 SQ; +VITAMIN D-32000 UNI1 PO
[2019-01-18 22:02] VITALS: BP 108/61
[2019-01-18 22:50] VITALS: BP 105/58
[2019-01-18 23:11] LABS: BASO # 0.1 10*3/uL (0.0-0.1); BASO % 0.5 % (0.0-1.0); EOS # 0.4 10*3/uL (0.0-0.4); EOS % 2.8 % (1.0-4.0); HEMATOCRIT 37.2 % (42.0-52.0); HEMOGLOBIN 11.4 g/dl (14.0-18.0); LYMPH # 2.7 10*3/uL (1.3-4.4); LYMPH % 20.8 % (27.0-41.0); MEAN CORPUSCULAR HGB 23.6 pg (27.0-31.0); MEAN CORPUSCULAR HGB CONC 30.6 g/dl (33.0-37.0); MEAN PLATELET VOLUME 10.6 fl (9.6-12.3); MONO # 1.5 10*3/uL (0.1-1.0); MONO % 11.4 % (3.0-9.0); NEUT # 8.2 10*3/uL (2.3-7.9); NUCLEATED RED BLOOD CELL 0.2 % (0.0-0.0); PLATELET COUNT AUTOMATED 212 10*3/uL (130-400); RED BLOOD COUNT 4.83 10*6/uL (4.50-5.90); RED CELL DISTRI WIDTH 16.6 % (0-14.5); WHITE BLOOD COUNT 12.8 10*3/uL (4.8-10.8)
[2019-01-18 23:20] VITALS: BP 100/59
[2019-01-18 23:22] LABS: ACT PARTIAL THROMBO TIME 37.9 SECONDS (20.0-32.1); INTERNATIONAL NORM RATIO 1.5 (2.0-3.5)
[2019-01-18 23:29] LABS: ALBUMIN 2.8 gm/dl (3.1-4.5); BUN 29 mg/dl (7-24); CHLORIDE 105 mmol/L (98-107); CREATININE 1.86 mg/dL (0.70-1.30); POTASSIUM 3.9 mmol/L (3.5-5.1); SGOT/AST 17 IU/L (3-35); SGPT/ALT 16 U/L (12-78); SODIUM 138 mmol/L (136-145); TOTAL PROTEIN 7.8 gm/dL (6.4-8.2)
[2019-01-18 23:33] LABS: ALKALINE PHOSPHATASE 93 U/L (45-117)
[2019-01-18 23:34] LABS: TROPONIN I < 0.015 ng/ml (<0.045)
[2019-01-18 23:50] VITALS: BP 107/59
[2019-01-19] VITALS (7 sets, daily range): BP systolic 109–128; BP diastolic 53–82
[2019-01-19 00:11] LABS: BILIRUBIN NEGATIVE (NEGATIVE); BLOOD NEGATIVE (NEGATIVE); CLARITY CLEAR (CLEAR); COLOR YELLOW (YELLOW); GLUCOSE TRACE (NEGATIVE); KETONE NEGATIVE (NEGATIVE); LEUKO ESTERASE NEGATIVE (NEGATIVE); NITRITE NEGATIVE (NEGATIVE); PH 5.5 (5.0-9.0); UROBILINOGEN 0.2 E.U./dl (0.2-1.0)
[2019-01-19 00:28] LABS: BACTERIA 3+; FINE GRANULAR CAST 0-2; RBC 0-2 rbc/hpf (0-2)
[2019-01-19 06:12] LABS: BASO # 0.1 10*3/uL (0.0-0.1); BASO % 0.6 % (0.0-1.0); EOS # 0.4 10*3/uL (0.0-0.4); EOS % 3.5 % (1.0-4.0); HEMATOCRIT 37.4 % (42.0-52.0); HEMOGLOBIN 11.3 g/dl (14.0-18.0); LYMPH # 2.7 10*3/uL (1.3-4.4); LYMPH % 24.8 % (27.0-41.0); MEAN CELL VOLUME 77.8 fl (80.0-94.0); MEAN CORPUSCULAR HGB 23.5 pg (27.0-31.0); MEAN CORPUSCULAR HGB CONC 30.2 g/dl (33.0-37.0); MEAN PLATELET VOLUME 10.3 fl (9.6-12.3); MONO # 1.1 10*3/uL (0.1-1.0); MONO % 10.6 % (3.0-9.0); NEUT # 6.4 10*3/uL (2.3-7.9); PLATELET COUNT AUTOMATED 208 10*3/uL (130-400); RED BLOOD COUNT 4.81 10*6/uL (4.50-5.90); RED CELL DISTRI WIDTH 16.9 % (0-14.5); WHITE BLOOD COUNT 10.7 10*3/uL (4.8-10.8)
[2019-01-19 06:35] LABS: CREATININE 1.8 mg/dL (0.70-1.30); PHOSPHOROUS 3.5 mg/dL (2.5-4.9); POTASSIUM 3.3 mmol/L (3.5-5.1)
--- NOTE | 2019-01-19 09:39 | NUR ---
CRYSTAL HERE AT THIS TIME TO ASSESS PATIENTS WOUNDS.
--- NOTE | 2019-01-19 09:41 | NUR ---
ANNEJUANITA Edwards [id number] Please refer to the physician's history and physical for past medical history, comorbid conditions, and allergies. Diagnosis: UTI, METABOLIC ENCEPHALOPATHY, SEVERE SEPSIS [place] Score: , WOUND DESCRIPTIONS: Patient has intact scab areas not bilateral lower extremities. No drainage noted at time of assessment. No redness noted at time of assessment. 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 Surface the patient is resting on: Isoflex SKIN PREVENTION RECOMMENDATION: 1. Pressure redistribution support surface as appropriate 2. Elevate heels 3. Remove boots/TEDS every shift and reapply 4. Head of bed 30 degrees as tolerated 5. Assess nutrition and hydration 6. Manage moisture 7. Avoid the use of containment devices while in bed 8. Use absorptive products on surfaces limit layers of linens on bed 9. Turn and reposition every 1-2 hours in bed and every 1 hour in chair as tolerated 10. Weight shifts every 15 minutes while up in chair 11. Offloading with pillows or device to keep heels elevated off bed 12. Monitor skin at least every shift 13. Inspect under medical devices twice a day WOUND TREATMENT RECOMMENDATIONS: Cleanse bilateral lower extremities with soap and water and apply aquaphor daily.
--- NOTE | 2019-01-19 14:13 | NUR ---
[facility] CALLED ABOUT THE PT. I CONFIRED THAT HE WAS BEING ADMITTED AND GAVE HER THE DX
--- NOTE | 2019-01-19 14:50 | NUR ---
PT ED HOLD, PT WAS PICKED UP BY ME AT 1500, REPORT CALLED TO THE FLOOR BY ED HOLD RN PATRICK CHOI, PT TRANSPORTE TO [facility].
[2019-01-19] MEDS ORDERED: POTASSIUM CHLO20 ME3 PO (15:11)
[2019-01-19] MEDS ORDERED: LEVOXYL88 MCG PO (15:12)
--- NOTE | 2019-01-19 15:15 | NUR ---
MED REC UPDATED & MEDS THAT WERE MARKED REVIEWED WERE THE ONES CONFIRMED [facility]
--- NOTE | 2019-01-19 15:18 | NUR ---
MEDS DISCUSSED WITH DR LIGHT
--- NOTE | 2019-01-19 16:32 | NUR ---
PHYSICAL THERAPY Nursing screen received and chart review complete. Please order PT evaluation when appropriate. Thank you. Bekah Segovia,PT,DPT.
--- NOTE | 2019-01-19 20:51 | NUR ---
24 HR chart check completed.
--- NOTE | 2019-01-19 21:00 | NUR ---
AWAKE, FORGETFUL. RESTING IN BED WITH NO ACUTE DISTRESS NOTED. RESPIRATINS EASY. LUNGS DIMINISHED, CLEAR. PULSE OX 98% RA. COUGH PROD FOR GREEN. ABRASIONS/SCABS NOTED TO BLE. OFFERED AND EDUCATED REGARDING TEDS, RECEPTIVE AND TEDS PLACED AT BEDSIDE. CALL LIGHT WITHIN REACH. NO VOICED COMPLAINTS. BED ALARM MAINTAINED FOR SAFETY
--- NOTE | 2019-01-19 23:30 | NUR ---
AWAKE, RESTLESS. IV PULLED OUT. NEW SITE OBTAINED.
[2019-01-20] VITALS: BP 119/86
--- NOTE | 2019-01-20 00:30 | NUR ---
REMAINS AWAKE, RESTLESS. ATTEMPTS TO ORIENT PATIENT OF LITTLE SUCCESS. VSS. CALL LIGHT WITHIN REACH. BED ALARM MAINTAINED
[2019-01-20] MEDS ORDERED: POTASSIUM CHLO20 ME4 PO (01:26)
--- NOTE | 2019-01-20 03:00 | NUR ---
PATIENT CONTINUALLY UP AND DOWN SETTING OFF BED ALARM. IV SITE AGAIN PULLED OUT.
--- NOTE | 2019-01-20 03:50 | NUR ---
SPOKE TO NAOMI INSTRUCTOR TRAINER CANINE SERVICE AND DR PAUL REGARDING NECESSARY WOUND CARE ORDERS. NEW ORDERS RECEIVED
--- NOTE | 2019-01-20 04:42 | NUR ---
Recommend follow up for wound care in outpatient setting patient refused at this time.
--- NOTE | 2019-01-20 06:00 | NUR ---
REMAINS AWAKE, RESTLESS. SITTING AT BEDSIDE. RESPIRATIONS EASY. CALL LIGHT WITHIN REACH. NO VOICED COMPLAINTS
[2019-01-20 07:02] LABS: CREATININE 1.8 mg/dL (0.70-1.30); INTERNATIONAL NORM RATIO 1.6 (2.0-3.5)
[2019-01-20 08:00] VITALS: BP 120/58
--- NOTE | 2019-01-20 11:52 | NUR ---
U NOTIFIED OF CONSULT.
[2019-01-20 12:00] VITALS: BP 101/58
--- NOTE | 2019-01-20 12:52 | NUR ---
Senior Marketing Specialist in to talk to patient. Patient states lives at HOME with . There are FEW steps in the home. Physician: JEREMY REDDY Pharmacy: [facility] health services: NONE Patient's level of ADLs: MAX ASSIST Patient has working utilities: YES DME: BELLA Follow-up physician's appointment after d/c: WILL BE MADE BY HOSPITALIST NURSE DIRECTOR ON DISCHARGE Does patient want to access PORTAL?: NO Discharge plan PT LIVES AT HOME WITH . PER MD IF PT DOES NOT HAVE A UTI HE WILL GET A PSYCH CONSULT. PT UNABLE TO GIVE ME INFORMATION AND IS NOT HERE AT TIME OF VISIT. WILL CONTINUE TO FOLLOW. . PETER LENTZ
--- NOTE | 2019-01-20 15:47 | NUR ---
HE REMOVED ECONOMIC FORECASTER, AND REFUSES TO PUT IT BACK ON AT THIS TIME. PT AGITATED AND YELLING OUT FOR US TO CALL HIS , LONDON CALLED AND CALL SET TO HIS ROOM. HE IS SPEAKING TO HER BY PHONE. WILL MONITOR
[2019-01-20 16:00] VITALS: BP 105/55
--- NOTE | 2019-01-20 17:58 | NUR ---
Discharge instructions reviewed with patient/family. Patient receptive and verbalizes understanding. Follow-up care arranged. Written instructions given to patient/family. LOGAN CURRIE
[2019-01-20] MEDS ORDERED: NAMENDA10 MG PO (20:30)
[2019-02-22] MEDS ORDERED: SYNTHROID25 MCG PO (05:32)
[2019-02-22] MEDS ORDERED: MIRTAZAPINE15 M2 PO (05:33)
[2019-02-22] MEDS ORDERED: DOCUSATE SODIU100 M2 PO (05:34)
[2019-02-22] MEDS ORDERED: ACETAMINOPHEN500 M4 PO (05:35)
[2019-02-22] MEDS ORDERED: MILK OF MA400 MG/5 M PO (05:35)
[2019-02-22] MEDS ORDERED: ATENOLOL25 MG PO (05:36)
[2019-02-22] MEDS ORDERED: NEURONTIN100 MG PO (05:37)
[2019-02-22] MEDS ORDERED: RIVASTIGMINE TAR6 M1 PO (05:38)
[2019-02-22] MEDS ORDERED: TOUJEO MAX300 UNIT/1 SQ (05:39)
[2019-02-26] MEDS ORDERED: TENORMIN25 MG PO (08:55)
[2019-02-26] MEDS ORDERED: TRAD5TAB1 PO (08:55)
[2019-02-26] MEDS ORDERED: ROZEREM8 MG PO (08:55)
[2019-02-26] MEDS ORDERED: Mysoline50 MG PO (08:55)
== END 2019-01-20 17:58 | disposition home health service (06) | DRG 871 ==
LOC: ED 22:01 → 5E 01-19 00:49 → 4NE 01-19 00:49 → ED 01-19 00:49 → EDHOLD 01-19 00:49 → 5E 01-19 14:51
PROVIDERS: Internal Medicine; Student in an Organized Health Care Education/Training Program; ADMIT Internal Medicine
DX: A41.9 Sepsis, unspecified organism (principal); G93.41 Metabolic encephalopathy; N39.0 Urinary tract infection, site not specified; I50.32 Chronic diastolic (congestive) heart failure; F33.9 Major depressive disorder, recurrent, unspecified; I13.0 Hypertensive heart and chronic kidney disease with heart failure and stage 1 through stage 4 chronic kidney disease, or unspecified chronic kidney disease; D68.59 Other primary thrombophilia; N40.0 Benign prostatic hyperplasia without lower urinary tract symptoms; E78.5 Hyperlipidemia, unspecified; K21.9 Gastro-esophageal reflux disease without esophagitis; Z96.659 Presence of unspecified artificial knee joint; F48.2 Pseudobulbar affect; F41.9 Anxiety disorder, unspecified; I48.0 Paroxysmal atrial fibrillation; E03.9 Hypothyroidism, unspecified; E11.40 Type 2 diabetes mellitus with diabetic neuropathy, unspecified; G30.9 Alzheimer's disease, unspecified; F02.80 Dementia in other diseases classified elsewhere, unspecified severity, without behavioral disturbance, psychotic disturbance, mood disturbance, and anxiety; R65.20 Severe sepsis without septic shock; R31.9 Hematuria, unspecified; E11.65 Type 2 diabetes mellitus with hyperglycemia; N18.3 Chronic kidney disease, stage 3 (moderate); E87.6 Hypokalemia; E11.22 Type 2 diabetes mellitus with diabetic chronic kidney disease; Z88.2 Allergy status to sulfonamides; Z88.8 Allergy status to other drugs, medicaments and biological substances; Z81.1 Family history of alcohol abuse and dependence; Z82.0 Family history of epilepsy and other diseases of the nervous system; Z79.899 Other long term (current) drug therapy; Z79.01 Long term (current) use of anticoagulants

== ENCOUNTER 2019-01-20 18:09 | Inpatient (IN) | payer MEDICARE ==
[~2019-01-20] VITALS: Ht 182.8 cm; Wt 123.8 kg
--- NOTE | ~2019-01-20 | EKG ---
[place], [place] ELECTROCARDIOGRAM REPORT NAME: JUANITA RODRÍGUEZ UNIT #: [id number] ROOM: 314 DOCTOR: MARIVEL DRAFT REPORT BIRTHDATE: [address] 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
--- NOTE | ~2019-01-20 | PR ---
[place], [place] PROGRESS NOTE NAME: [id number] UNIT #: [id number] ROOM: 314 DOCTOR: REBECCA LEVINE MD BIRTHDATE: [birth year] DOS: 02/03/2019 INTERVAL NOTE CHIEF COMPLAINT: "Doc, "I am just so depressed." SUMMARY OF THE VISIT: The patient was interviewed as he was sitting, eating his breakfast. He reported that he was very depressed, but recounted that most of this is because he is still here and not out of the hospital back in to [facility]. Much of this delay has been because the passer system has not been efficient at evaluating the patient so that appropriate transfer can be made, otherwise the patient reports much less crying episodes, improved sleep and improved appetite. On mental status, he is alert and oriented with time gaps. Mood does seem to be strongly trending towards euthymia except for the situational depression. There is no hypomania, jc or psychosis present. Short-term memory has mild gaps, otherwise he is relatively fully intact. PLAN: I have printed his scripts in lieu of a possible discharge today. We will push the passer system to attempt to facilitate a transfer to [facility], which is the appropriate placement for this gentleman at this time. REBECCA LEVINE MD CM:PNTRANS [id number] REBECCA LEVINE MD 02/03/19 1314 interface
--- NOTE | ~2019-01-20 | WRIGHTHP ---
[place], [place] PATIENT HISTORY AND PHYSICAL EXAM NAME: J[facility]ODRÍGUEZ [facility] [id number] UNIT #: [id number] ROOM: 314 DOCTOR: REBECCA LEVINE MD BIRTHDATE: [birth year] DOS: 01/21/2019 INITIAL PSYCHIATRIC EVALUATION CHIEF COMPLAINT: "Doc, this crying is driving me crazy." HISTORY OF PRESENT ILLNESS: This is an 88-year-old white male known to me from a previous admission here to the [facility] as well as a short stay at [facility]. The patient was initially admitted to the hospital due to UTI with sepsis and metabolic encephalopathy. While on the medical floor, he repeatedly voiced increased depression with multiple neurovegetative symptoms, increased crying spells, some of which are out of his control and represents pseudobulbar affect. These crying spells are very frustrating for him and he has openly stated he would just as soon be is to continue having these crying spells. He is admitted now to rule out organicity to stabilize on medication, returning to the least restrictive environment when psychiatrically stable. PAST MEDICAL HISTORY: Remarkable for atrial fibrillation, Alzheimer's dementia, benign prostatic hyperplasia, congestive heart failure, chronic kidney disease stage 3, diabetes, diabetic neuropathy, hyperlipidemia, GERD, hypertension, hypothyroidism, major depression, recurrent, metabolic encephalopathy, normocytic anemia, pseudobulbar affect, sepsis, systemic inflammatory response syndrome. SOCIAL HISTORY: He does not smoke, use drugs or drink alcohol. ALLERGIES: HE LISTS ALLERGIES TO SULFA, BACTRIM AND AMBIEN. STRENGTHS: Ambulatory, good verbal skills, supportive family. WEAKNESSES: Cognitive decline, poor coping skills. MENTAL STATUS: He is alert and oriented with time gaps. Mood does seem to be depressed with anxious overtones and there is some excessive crying at times. There is no hypomania or jc. There are no gross psychotic symptoms. Short term memory has gaps. Intermediate and long-term are relatively intact. DIAGNOSES: Major depression, recurrent, severe, pseudobulbar affect, Alzheimer's dementia. PLAN: I will go ahead and max out his Exelon patch, bringing the dose from 9.5 to 13.3 mg a day while it is being augmented by Namenda 10 mg b.i.d. I have maintained his Nuedexta 20-10 one capsule q. 12 hours and we will research the possibility of just adjusting this further. We will engage in individual and brush milieu activity, returning to the least restrictive environment when psychiatrically stable. [place], [place] PATIENT HISTORY AND PHYSICAL EXAM NAME: JUANITA RODRÍGUEZ UNIT #: [id number] ROOM: [facility] DOCTOR: REBECCA LEVINE MD BIRTHDATE: [birth year] REBECCA LEVINE MD CM:HISPHYS:PATIENT HISTORY AND PHYSICAL EXAMINATION [id number] REBECCA LEVINE MD 01/21/19 0945 interface
--- NOTE | ~2019-01-20 | PR ---
[place], [place] PROGRESS NOTE NAME: [id number] UNIT #: [id number] ROOM: 314 DOCTOR: STEPHEN FLAHERTY CNP BIRTHDATE: [birth year] DOS: 01/24/2019 CHIEF COMPLAINT: "I think I am doing well." SUMMARY OF THE VISIT: The patient was interviewed as he sat in the activities room. He has been participating in activities and engage readily in conversation with me and had good eye contact. The patient reports that he slept okay last night; however, not as good as he would like to. His appetite has been good. He reports that he feels that his mood has improved. Staff reports that the patient was anxious and tearful, somewhat yesterday; however, he has been pleasant today and has not exhibited any inappropriate laughing or crying. MENTAL STATUS EXAMINATION: The patient is alert and oriented to person, place and time. He was pleasant and cooperative with me. No jc or hypomania noted. No delusions or paranoia noted. No psychotic symptoms noted. No auditory or visual hallucinations noted. The patient's mood was calm. No aggression or agitation noted. His affect is congruent with mood. No inappropriate laughing or crying noted. PLAN: Will be to continue the patient's medications as prescribed. The patient seems to be tolerating medications and they appear to be effective. I will continue to encourage the patient to engage in individual and brush milieu activity. Continue fall and safety precautions. Plan is to return the patient to the least restrictive environment once he is considered psychiatrically stable. Stephen Flaherty CNP CM:PNTRANS [phone] STEPHNE FLAHERTY CNP 01/25/19 0853 interface
--- NOTE | ~2019-01-20 | PR ---
[place], [place] PROGRESS NOTE NAME: JUAN[facility]OD[facility]ÍGUEZ [facility]: [id number] UNIT #: [id number] ROOM: 314 DOCTOR: STEPHEN FLAHERTY CNP BIRTHDATE: [birth year] DOS: 01/23/2019 CHIEF COMPLAINT: "I went to bed around midnight." SUMMARY OF VISIT: The patient was interviewed as he sat on the edge of his bed in his room. He engaged readily in conversation with me. The patient reports that he slept well and feels rested this morning. Denies feeling agitated or aggression. He denies any crying spells. Staff reports that the patient has been compliant with medication. His EKG results were normal. MENTAL STATUS EXAMINATION: The patient was alert and oriented to person, place and time. He was pleasant and cooperative with me. No jc or hypomania noted. No delusions or paranoia noted. No psychotic symptoms noted. No auditory or visual hallucinations noted. No inappropriate crying or laughing noted at the time of interview. The patient's mood was calm. The patient's affect was congruent with mood. PLAN: We will continue with the plan of taking Nuedexta 3 times a day to help with the pseudobulbar affect symptoms due to the fact that the patient's EKG is normal. We will continue to encourage the patient to engage in individual and brush milieu activity. Continue fall and safety precautions. Plan to return the patient to the least restrictive environment once he is considered psychiatrically stable. Stephen Flaherty CNP CM:PNTRANS [phone] STEPHEN FLAHERTY CNP 01/23/19 1033 interface
--- NOTE | ~2019-01-20 | PR ---
[place], [place] PROGRESS NOTE NAME: [id number] UNIT #: [id number] ROOM: 314 DOCTOR: STEPEHN FLAHERTY CNP BIRTHDATE: [birth year] DOS: 01/25/2019 CHIEF COMPLAINT: "How are you this fine morning." SUMMARY OF THE VISIT: The patient was then interviewed as he sat in the dining room, waiting for breakfast. The patient reports that he slept well last night and feels rested this morning. He reports that his appetite has been good. He feels that his mood is improved; however, he feels that he would like his mood to feel better. He reports that he did have one crying episode last evening; however, it did not last long. He feels that the Nuedexta is helping. Staff reports that the patient slept well. He has been compliant with medications. He did have one crying episode in the late afternoon yesterday as well as the one that he reported in the evening. Staff reports that both episodes lasted less than 5 minutes. MENTAL STATUS EXAMINATION: The patient is alert and oriented to person, place, time. He was pleasant and cooperative with me. No jc or hypomania noted. No delusions or paranoia noted. No psychotic symptoms noted. No auditory or visual hallucinations noted. The patient's mood is somewhat depressed. Affect somewhat flat. PLAN: I am going to start the patient on Cymbalta 30 mg at bedtime to combat depression symptoms. We will monitor the patient for tolerability and effectiveness of the medication. We will encourage the patient to continue to engage in individual and brush milieu activities. Continue fall and safety precautions. Plan is to return the patient to the least restrictive environment once he is considered psychiatrically stable. Stephen Flaherty CNP CM:PNTRANS [phone] STEPHEN FLAHERTY CNP 01/26/19 0035 interface
--- NOTE | ~2019-01-20 | PR ---
[place], [place] PROGRESS NOTE NAME: J[facility]AN[facility]UEZ [id number] UNIT #: [id number] ROOM: 314 DOCTOR: REBECCA LEVINE MD BIRTHDATE: [birth year] DOS: 02/01/2019 CHIEF COMPLAINT: "Good morning, doc, how are you?" SUMMARY OF THE VISIT: The patient was interviewed as he was finishing his breakfast. He shook my hand and greeted me pleasantly. He reports he is ready to be able to go to [facility] and is hopeful that this happens on Saturday. He was not tearful in anyway and he engaged readily in pleasant conversation. MENTAL STATUS: He is alert and oriented to person, place and very approximate on time. Mood does seem to be euthymic. Affect is much more appropriate. There is no jc or hypomania. There is no gross psychosis. Short term memory has only mild gaps, otherwise he is relatively fully intact. PLAN: I will maintain his current psychotropic regimen, engage in individual and brush milieu activity, returning to the least restrictive environment when psychiatrically stable. REBECCA LEVINE MD CM:PNTRANS 6 [phone] REBECCA LEVINE MD 02/01/19 0930 interface
--- NOTE | ~2019-01-20 | PR ---
[place], [place] PROGRESS NOTE NAME: [id number] UNIT #: [id number] ROOM: 314 DOCTOR: REBECCA LEVINE MD BIRTHDATE: [birth year] DOS: 02/02/2019 INTERVAL NOTE CHIEF COMPLAINT: "Doc, is this the day. I get to go." SUMMARY OF THE VISIT: The patient was interviewed as he was sitting in the dining area waiting for breakfast. As I approached, he reached out to shake my hand and greeted me pleasantly. He reports that he is feeling 100% better and that the depression has lifted and the spontaneous inappropriate crying has all but dissipated. He reports no side effects from the medicines and voices a willingness and a readiness to be discharged. MENTAL STATUS: He is alert and oriented with mild time gaps. Mood does seem to be strongly trending towards euthymia. Affect is much more appropriate. There is no jc, hypomania or psychosis. Short-term memory has mild gaps, but for the most part, he is intact. PLAN: I will maintain his current psychotropic regimen, continue to engage in individual and brush milieu activity, returning to the least restrictive environment when psychiatrically stable. REBECCA LEVINE MD CM:PNTRANS 0838 REBECCA LEVINE MD 02/02/1947 interface
--- NOTE | ~2019-01-20 | PR ---
[place], [place] PROGRESS NOTE NAME: J[facility]AN[facility]GUEZ [facility] [id number] UNIT #: [id number] ROOM: 314 DOCTOR: REBECCA LEVINE MD BIRTHDATE: [birth year] DOS: 01/22/2019 INTERVAL NOTE CHIEF COMPLAINT: "Well good morning there Sir." SUMMARY OF THE VISIT: The patient was interviewed as he was finishing his breakfast. He engaged readily in conversation, reporting he is still hopeful that something can be done, but already states he is feeling better since he was admitted. We discussed at length me increasing the dose of Nuedexta to 3 times a day and he nodded in approval. I did encourage him to let us know if he felt anything positive or negative with this medication increase. MENTAL STATUS: He is alert and oriented with time gaps. Mood does seem to be trending towards euthymia. There is much less excessive emotionality. There is no hypomania or jc. There is no gross psychosis. He does have time gaps. PLAN: I will increase his Nuedexta 20-10 one cap q. 8 hours. I will check an EKG tonight at 1800 hours to assess for QT prolongation. We will continue to engage in individual and brush milieu activity, returning to the least restrictive environment when psychiatrically stable. REBECCA LEVINE MD CM:PNTRANS [phone] REBECCA LEVINE MD 01/22/19 1214 interface
[~2019-01-20 18:09] MED LIST changes: +POTASSIUM CHLO20 ME3 PO; +POTASSIUM CHLO20 ME4 PO
[2019-01-20 18:20] VITALS: BP 105/53
--- NOTE | 2019-01-20 18:20 | NUR ---
JUANITA RODRÍGUEZ a 88 year old M admitted via wheel chair from the OTHER as a voluntary admission. Arrived on unit at 1820. ALLERGIES: SULFAMETHAXOLE,TRIMETHOPRIM,ZOLPIDEM. Vital signs are: 97.0-86-18 105/53, SPO2 93%RA. The client signed the following forms with stated understanding: Authorization For The Release of Medical Information, Clothing List, Consent to Voluntary Admission and Hospitalization, Consent and Release Forms/Receipt of Rights, Acknowledgement of Advance Directive Information, Behavioral Health Consent Form, and Informed Consent of Medications. Admitted under the services of Dr. ABNER VILLAREAL,[facility]. A search was conducted and hazardous articles were removed. Client was oriented to the unit. LOGAN GARCIA
[2019-01-20] MEDS ORDERED: NAMENDA10 MG PO (20:30)
--- NOTE | 2019-01-20 20:46 | NUR ---
DR. PAUL MADE AWARE OF CONSULT FOR MEDICAL MANAGEMENT. ALSO MADE AWARE THAT PT'S SYNTHROID NOT CONTINUED AT DISCHARGE FROM 5TH FLOOR. TSH LEVEL PENDING FOR AM LAB DRAW. WITNESSED BY SECOND RN.
[2019-01-20 20:51] VITALS: BP 104/83
--- NOTE | 2019-01-20 20:52 | NUR ---
EVENING/BINGO PT JUST ADMITTED TO UNIT BECOMING ORIENTED AT THIS TIME. PT WILL BE ENCOURAGED TO ATTEND AND PARTICIPATE IN FUTURE GROUP SESSIONS.
--- NOTE | 2019-01-21 00:12 | NUR ---
P- ALERT TO PERSON AND PLACE, NOT TIME OR SITUATION. CONFUSION AND ST/LT MEMORY DEFICITS NOTED. SELECTIVELY MUTE. I- REORIENT PT FREQUENTLY WHEN CONFUSION IS NOTED. 1:1 INTERACTION WITH EMOTIONAL SUPPORT PROVIDED. PROVIDE MEDICATIONS ON TIME WITH EDUCATION ON EACH MED. ATTEMPT TO ENGAGE IN CONVERSATION. TWO ASSIST WITH TRANSFERING DUE TO UNSTEADY GAIT. ASSESS MOOD, ORIENATION, HALLUCINATIONS, DELUSIONS, SI/HI, OR PAIN. R- REMAINS AT BASELINE CONFUSION EVEN WITH REORIENTATION. 1:1 INTERACTION INEFFECTIVE. PT REMAINS SELECTIVELY MUTE. TWO ASSIST WITH TRANSFERING DUE TO UNSTEADY GAIT. PT UTILIZE WHEELCHAIR. MEDICATION COMPLIANCE WITH NO DIFFICULTY. UNABLE TO ENGAGE PT IN CONVERSATION/INTERVIEW QUESTIONS. NO S/S OF INTERACTING WITH INTERNAL STIMULI. NO DELUSIONAL THOUGHT PROCESS NOTED. NO S/S OF DISTRESS NOTED. RESPIRATIONS EVEN AND UNLABORED ON ROOM AIR. P- REORIENT FREQUENTLY WHEN CONFUSION IS NOTED. 1:1 THERAPEUTIC INTERACTION WITH EMOTIONAL SUPPORT PROVIDED WHEN NECESSARY. ATTEMPT TO ENGAGE IN CONVERSATION. PROVIDE MEDICATIONS ON TIME WITH EDUCATION ON EACH MED. ASSESS MOOD, ORIENATION, HALLUCINIATIONS, DELUSIONS, SI/HI, OR PAIN EACH SHIFT. TWO ASSIST WITH TRANSFERING DUE TO UNSTEADY GAIT. FALLING STAR PROGRAM IN PLACE. Q15 MINUTE CHECKS MAINTAINED FOR SAFETY.
--- NOTE | 2019-01-21 00:25 | NUR ---
24 HR chart check completed.
--- NOTE | 2019-01-21 06:05 | NUR ---
Q15 MINUTE CHECKS MAINTAINED THROUGHOUT THE NIGHT. PT NOTED TO HAVE SLEPT APPROXIMATELY 6 HOURS OF INTERUPPTED SLEEP.
[2019-01-21 07:42] VITALS: BP 108/77
--- NOTE | 2019-01-21 08:00 | NUR ---
Treatment Plan meeting with Dr. Kim, RN, AT, SW and Chocolate Maker. Plan for discharge Next week. Pt. came to [facility] from Home. Will reach out to family to discuss discharge Plans.
[2019-01-21 08:13] LABS: BASO # 0.1 10*3/uL (0.0-0.1); BASO % 0.7 % (0.0-1.0); EOS # 0.5 10*3/uL (0.0-0.4); EOS % 5.3 % (1.0-4.0); HEMATOCRIT 38.5 % (42.0-52.0); HEMOGLOBIN 11.7 g/dl (14.0-18.0); LYMPH # 1.8 10*3/uL (1.3-4.4); LYMPH % 18.2 % (27.0-41.0); MEAN CELL VOLUME 76.7 fl (80.0-94.0); MEAN CORPUSCULAR HGB 23.3 pg (27.0-31.0); MEAN CORPUSCULAR HGB CONC 30.4 g/dl (33.0-37.0); MEAN PLATELET VOLUME 9.6 fl (9.6-12.3); MONO # 0.9 10*3/uL (0.1-1.0); MONO % 9.3 % (3.0-9.0); NEUT # 6.5 10*3/uL (2.3-7.9); NEUT % 65.7 % (47.0-73.0); NUCLEATED RED BLOOD CELL 0.2 % (0.0-0.0); PLATELET COUNT AUTOMATED 239 10*3/uL (130-400); RED BLOOD COUNT 5.02 10*6/uL (4.50-5.90); RED CELL DISTRI WIDTH 16.7 % (0-14.5); WHITE BLOOD COUNT 9.9 10*3/uL (4.8-10.8)
--- NOTE | 2019-01-21 08:13 | NUR ---
Patient resting quietly with no c/o discomfort. Respirations easy and regular. Vital signs stable. No overt distress. LOGAN GARCIA
--- NOTE | 2019-01-21 08:41 | NUR ---
Nursing screen received and Occupational Therapy referral received. Thank you. Destiney Dias OTR/l
[2019-01-21 08:50] LABS: ALBUMIN 2.7 gm/dl (3.1-4.5); CREATININE 1.74 mg/dL (0.70-1.30)
[2019-01-21 08:59] LABS: THYROID STIM HORMONE (HS) 4.04 uIU/ml (0.358-4.75); TOTAL PROTEIN 7.9 gm/dL (6.4-8.2)
--- NOTE | 2019-01-21 09:00 | NUR ---
PHYSICAL THERAPY Nursing screen received. PT orders received. Thank you. Bekah Segovia,PT,DPT
[2019-01-21 09:31] LABS: VITAMIN D, 25-HYDROXY 43.4 ng/mL (30-100)
--- NOTE | 2019-01-21 12:00 | NUR ---
AM GROUP PT ATTENDED GROUP AND PARTICIPATED IN THE LIGHT THERAPY, LOOKED AT THE NEWSPAPER AND SOCIALIZED. PT WAS NOTED TO STARE OFF INTO SPACE A FEW TIMES. PT DID NOT EXHIBIT ANY CRYING DURING GROUP.
--- NOTE | 2019-01-21 14:04 | NUR ---
PER [place] FROM [employer] IP APPROVED FOR 10 DAYS. 01/20-01/29. NEXT REVIEW DATE 01/30
--- NOTE | 2019-01-21 15:56 | NUR ---
Spoke with pt's Alana and scheduled family meeting for 01/26/19, at 13:30.
--- NOTE | 2019-01-21 16:08 | NUR ---
Nursing screen and occupational therapy referral received. Thank you. Arnoldo Dias OTR/L
[2019-01-21 20:02] VITALS: BP 136/75
--- NOTE | 2019-01-21 21:52 | NUR ---
Patient alert to person and place with confusion. Patient is selectively mute. ST/LT memory deficits noted. No s/s of responding to internal stimuli noted. Patient compliant with medications without any difficulty. Provided 1:1 for emotional support. Unable to engage patient in conversation at this time. Plan to encourage medication compliance and continue to provide 1:1 for emotional support. Q 15 minute safety checks continued and maintained. See [facility] flowsheet for further documentation.
--- NOTE | 2019-01-22 00:20 | NUR ---
24 HR chart check completed.
--- NOTE | 2019-01-22 05:27 | NUR ---
Patient slept approx. 7 hours throughout shift. Q 15 minute safety checks continued and maintained.
[2019-01-22 07:57] VITALS: BP 131/72
--- NOTE | 2019-01-22 08:00 | NUR ---
Treatment Plan meeting with Dr. Kim RN, AT, SW and Lumber Carrier Operator. Plan for discharge Next week. Pt. will return home with at this time. Pending Family meeting to discuss discharge Plans.
[2019-01-22 08:02] LABS: INTERNATIONAL NORM RATIO 1.5 (2.0-3.5)
--- NOTE | 2019-01-22 08:33 | NUR ---
CALLED PLACED TO [phone], SPOKE TO DR STINSON. UPDATED ON PT/INR.
--- NOTE | 2019-01-22 11:47 | NUR ---
AM GROUP/BIRDHOUSES PT ATTENDED GROUP AND PARTICIPATED BY BUILDING ONE BIRDHOUSE AND BASE COATING ANOTHER ONE. PT EXHIBITED NO CRYING EXCEPT IN CONVERSATION WITH THIS PROFESSIONAL DEVELOPMENT DIRECTOR IN DISCUSSING THE LOSS OF A SON AND A GRANDSON. PT IS MILDLY CONFUSED BUT PLEASANT.
--- NOTE | 2019-01-22 13:26 | NUR ---
PHYSICAL THERAPY Physical therapy evaluation complete, 3N. Full evaluation to follow. Precautions including 3N unit precuations, falls risk, impaired cognition. Moderate complexity evaluation (46717) per chart review and evaluation. Recommend SNF or Home Health/Home with 24hr supervision and assist for safety. Thank you. Bekah Segovia,PT,DPT.
--- NOTE | 2019-01-22 14:44 | NUR ---
Occupational therapy eval complete on 3 with full eval to follow. Precautions include 3N unit precautions, fall risk, impaired cognition and memory. Moderate complexity level via chart review, testing, and eval. Recommend SNF or home with 24 hour supervision and assist to allow max abiltiy to function. Thank you for this referral. Arnoldo Dias OTR/L
--- NOTE | 2019-01-22 15:37 | NUR ---
PM GROUP/LEISURE INTERESTS PT ATTENDED AFTERNOON GROUP THERAPY AND PARTICIPATED BY WORKING A WORDSEARCH. PT HAD DIFFICULTY KEEPING HIS EYES OPEN AND KEPT DOZING OFF WITH PENCIL IN HAND. PT ASKED TO GO TO HIS ROOM AND LEFT THE DAYROOM. PT EXHIBITED NO EPISODES OF CRYING DURING GROUP
--- NOTE | 2019-01-22 18:31 | NUR ---
SPOKE WITH DR FERNANDES AT [phone] RE: PT EKG RESULTS NO FURTHER ORDERS AT THIS TIME.
[2019-01-22 20:00] VITALS: BP 143/72
--- NOTE | 2019-01-23 00:29 | NUR ---
P- ALERT TO PERSON AND APPROXIMATE PLACE. CONFUSION AND ST/LT MEMORY DEFICITS NOTED. TEARFUL. LABILE. I- REORIENT PT FREQUENTLY WHEN CONFUSION IS NOTED. 1:1 THERAPEUTIC INTERVENTION WITH EMOTIONAL SUPPORT PROVIDED. COPING MECHANISMS, SUCH DEEP BREATHING, TAUGHT. ENCOURAGED TO USE COPING MECHANISMS. ASSESS MOOD, ORIENTAION, HALLUCINATIONS, DELUSIONS, OR PAIN. ENCOURAGE REST AND RELAXED ENVIRONMENT WITH LOW STIMULI. PROVIDE MEDICATIONS ON TIME WITH EDUCATION ON EACH. R- REORIENTATION INEFFECTIVE, REMAINS AT BASELINE CONFUSION. 1:1 INTERACTION SLIGHTLY EFFECTIVE WHEN TEARFUL AND LABILE. PT UTILIZING COPING SKILL DEEP BREATHING, EFFECTIVE AT THIS TIME. PT STATED THAT HE IS TEARFUL BECAUSE HE CANT SLEEP. MOOD REMAINS LABILE. DENIES HALLUCINATIONS, SI/HI, OR PAIN. NO S/S OF INTERACTING WITH INTERNAL STIMULI. NO DELUSIONAL THOUGHT PROCESS NOTED. NO S/S OF DISTRESS NOTED. RESPIRATIONS EVEN AND UNLABORED ON ROOM AIR. LOW STIMULI AND LOW LIGHT ENVIRONMENT PROVIDED. LAYING IN BED WITH EYES CLOSED. PT INTERMITTENTLY WAKES UP TEARFUL AT TIMES. ATE HS SNACK. MEDICATION COMPLAINT. P- REORIENT WHEN CONFUSION IS NOTED. PROVIDE MEDICATIONS ON TIME WITH EDUCATION ON EACH MED. 1:1 INTERACTION WITH EMOTIONAL SUPPORT PROVIDED WHEN NECESSARY. ENCOURAGE TO UTILIZE COPING MECHANISMS WHEN TEARFUL AND LABILE. PROVIDE LOW STIMULI/LIGHT ENVIRONMENT. ASSESS MOOD, ORIENTATION, HALLUCINATIONS, DELUSIONS, SI/HI, OR PAIN EVERY SHIFT. FALLING STAR PROGRAM MAINTAINED. Q15 MINUTE CHECKS MAINTAINED FOR SAFETY.
--- NOTE | 2019-01-23 00:52 | NUR ---
24 HR chart check completed.
--- NOTE | 2019-01-23 01:50 | NUR ---
INCREASED AGITATION, TEARFUL, AND CRYING OUT. LOW STIMULI AND LOW LIGHTING ENVIRONMENT INEFFECTIVE. ALL COPING SKILLS INEFFECTIVE. 1:1 INTERACTION WITH EMOTIONAL SUPPORT INEFFECTIVE. RELAXATION AND ENCOURAGED REST INEFFECTIVE. PT STATED THAT HE TRIED COPING SKILLS AND RELAXATION, THESE DID NOT WORK. DUE TO THE INCREASED AGITATION AND ANXIETY, PRN PO 1MG ATIVAN GIVEN AT THIS TIME PER PRN ORDER. WILL MONITOR EFFECTIVENESS.
--- NOTE | 2019-01-23 02:15 | NUR ---
PRN PO ATIVAN EFFECTIVE. PT RESTING WITH EYES CLOSED, RESPIRATIONS EVEN AND UNLABORED ON ROOM AIR.
--- NOTE | 2019-01-23 05:31 | NUR ---
Q15 MINUTE CHECKS MAINTAINED THROUGHOUT THE NIGHT. OBSERVED TO HAVE SLEPT APPROXIMATELY 1 HOUR. PT AWOKE MULTIPLE TIMES TO GO THE RESTROOM OR LAYING AWAKE QUIETLY IN BED.
--- NOTE | 2019-01-23 07:05 | NUR ---
PHYSICAL THERAPY Patient seen this am for therapy visit and was coming up hallway in his w/c upon therapist arrival. OT phlebotomist lab assistant was present during STONEMASON SUPERVISOR visit this morning as patient voices no new c/o's other than chronic LE joint stiffness. Patient transfers sit to stand SBA and ambulates with use of wh walker, 20'x 1, CGA to bathroom, while demonstrating unsteady gait pattern in tight spaces. Patient ambulated additional 40'x 1 ad luis armando in hallway, CGA, demonstrating even stride with increased fatigue. Patient returned to / and remained in activity room awaiting breakfast under [facility] staff Supervision. Will continue per POC as tolerated, total treatment time 14 minutes. Jeffrey Cruz, STONEMASON SUPERVISOR
--- NOTE | 2019-01-23 07:15 | NUR ---
OT NOTE Pt was seen this A.M. 1:1 for 15 minute OT session with GMAT INSTRUCTOR and nursing staff present for observation only. Upon arrival pt was sitting upright in his w/c in the hallway. Pt identified by name and and had no complaints at this time. Pt was taken to his bedroom where he completed sit to stand from chair level with CGA followed by functional mobility into the bathroom with CGA and use of w/w for UE support. There pt transferred on/off standard commode with CGA for safety and use of grab bar. Clothing management completed with Hung due to becoming unsteady when reaching towards knees to pull his pants up. Pt then stood sink side while washing his hands, face, and completing hair care with SBA. Pt had two LOB that occured while rreaching overhead with no UE support to the R that required Hung to correct. Pt also required a seated rest break alf through grooming task due to quick onset of fatigue. Pt was left sitting upright in the w/c in the dining room under [facility] staff supervision. Continue with rec D/C plan of 24 hour supervision and assist. MELISSA Durham and pt required a seated
--- NOTE | 2019-01-23 08:00 | NUR ---
Treatment plan meeting with Kecia WALSH, RN, AT, SW and Netsuite Developer. Plan for discharge next week. Pt. at this point will return home with his and Home Services.
[2019-01-23 08:07] VITALS: BP 127/74
--- NOTE | 2019-01-23 12:09 | NUR ---
AM GROUP PT CHOSE NOT TO ATTEND MORNING GROUP THERAPY. PT WANTED TO STAY IN BED AND REST.
--- NOTE | 2019-01-23 15:39 | NUR ---
PM GROUP/ART AND MUSIC PT ATTENDED GROUP AND PARTICIPATED BY BASE [facility] 2 [employer]. PT ASKED TO LEAVE ROOM AND WAS NOTED LATER TO BE IN THE PINZON, SEATED IN HIS WHEELCHAIR, SOBBING. PT WAS COMFORTED BY THE NURSE AND RETURNED TO THE DAY ROOM. PT BEGAN SOBBING IN DAYROOM AND WHEN QUESTIONED, STATED "I JUST CAN'T PUT MY FINGER ON IT!" PT NURSE WAS MADE AWARE.
[2019-01-23 20:45] VITALS: BP 137/73
--- NOTE | 2019-01-23 21:05 | NUR ---
Patient alert to person and place with confusion. Patient is selectively mute. ST/LT memory deficits noted. No s/s of responding to internal stimuli noted. Patient compliant with medications without any difficulty. Provided 1:1 for emotional support. Redirected/reoriented when needed. Unable to engage patient in conversation at this time. Plan to encourage medication compliance and continue to provide 1:1 for emotional support. Q 15 minute safety checks continued and maintained. See [facility] flowsheet for further documentation.
--- NOTE | 2019-01-23 21:30 | NUR ---
Patient very tearful at this time. Patient came to nurses' desk in wheelchair saying " I am afraid and I don't know what to do". This nurse provided reassurance and also emotional support with patient. Patient now is resting in bed but remains slightly tearful. Will continue to monitor behavior
--- NOTE | 2019-01-24 00:19 | NUR ---
24 HR chart check completed.
--- NOTE | 2019-01-24 06:21 | NUR ---
PT SLEPT 4 HOURS THIS SHIFT. Q15 MINUTE SAFETY CHECKS MAINTAINED. SEE [facility] FLOWSHEET FOR SPECIFIC MONITORING.
[2019-01-24 07:08] LABS: BASO # 0.1 10*3/uL (0.0-0.1); BASO % 0.5 % (0.0-1.0); EOS # 0.5 10*3/uL (0.0-0.4); EOS % 5.2 % (1.0-4.0); HEMATOCRIT 38.4 % (42.0-52.0); HEMOGLOBIN 11.6 g/dl (14.0-18.0); LYMPH # 2.3 10*3/uL (1.3-4.4); LYMPH % 22.3 % (27.0-41.0); MEAN CORPUSCULAR HGB 23.6 pg (27.0-31.0); MEAN CORPUSCULAR HGB CONC 30.2 g/dl (33.0-37.0); MEAN PLATELET VOLUME 9.9 fl (9.6-12.3); MONO # 0.8 10*3/uL (0.1-1.0); MONO % 7.9 % (3.0-9.0); NEUT # 6.5 10*3/uL (2.3-7.9); NEUT % 62.8 % (47.0-73.0); NUCLEATED RED BLOOD CELL 0.3 % (0.0-0.0); PLATELET COUNT AUTOMATED 238 10*3/uL (130-400); RED BLOOD COUNT 4.92 10*6/uL (4.50-5.90); WHITE BLOOD COUNT 10.3 10*3/uL (4.8-10.8)
[2019-01-24 07:32] LABS: CREATININE 1.6 mg/dL (0.70-1.30); POTASSIUM 4.4 mmol/L (3.5-5.1)
[2019-01-24 07:36] LABS: INTERNATIONAL NORM RATIO 1.8 (2.0-3.5)
[2019-01-24 07:53] VITALS: BP 124/71
--- NOTE | 2019-01-24 08:00 | NUR ---
Patient resting quietly with no c/o discomfort. Respirations easy and regular. Vital signs stable. No overt distress. LOGAN GARCIA
--- NOTE | 2019-01-24 11:57 | NUR ---
AM GROUP/EXERCISES/ DISCUSSION PT ATTENDED AND PARTICIPATED IN ALL GROUP ACTIVITIES. PT PLEASANT AND ON TASK WITH NO CRYING OR AGITATION EXPRESSED. PT WILL CONTINUE TO ATTEND AND PARTICIPATE IN FUTURE GROUP SESSIONS.
--- NOTE | 2019-01-24 13:18 | NUR ---
PT STATES HE FEELS BETTER, BUT NOT GREAT. PT ASSESSED FOR ORIENTATION LEVEL, MOOD AND AFFECT. ASSESSED FOR DEPRESSED MOOD, SI/HI. ASSESSED FOR HALLUCINATIONS AND DELUSIONS. ASSESSED FOR SLEEP QUALITY AND APPETITE. PT ORIENTED TO PERSON AND PLACE, APPROXIMATE TO TIME. PT APPEARS TO HAVE DEPRESSED MOOD. PT WILL LAUGH AND INTERACT APPROPRIATELY AT TIMES, OTHER TIMES PT IS WITHDRAWN AND FLAT. PT DENIES SI/HI. DENIES HALLUCINATIONS AND DELUSIONS. PT REPORTS FEELING WELL RESTED. PT IS EATING 100% AT MEALS. TOLERATING ADA 1800 DIET WELL. WILL CONTINUE TO ASSESS PT FOR DEPRESSED MOOD AND SI/HI. WILL CONTINUE TO ENCOURAGE MEDICATION COMPLIANCE. WILL ENCOURAGE PARTICIPATION IN GROUP THERAPY/ACTIVITY FOR SOCIALIZATION AND SUPPORT.
--- NOTE | 2019-01-24 15:56 | NUR ---
PM GROUP/LEISURE SKILLS PT ATTENDED AN DPARTICIPATED IN GROUP. PT BECAME FRUSTRATED WITH PAINTING HIS BIRDHOUSE BC HE FELT HIS COLOR WASNT COVERING HIS BASE COAT. PT EVENTUALLY QUIT PAINTING AND LOOKED THROUGH THE NEWSPAPER. PT EXPRESSED FRUSTRATION STATING "I DONT KNOW WHAT I NEED" PT BECAME TEARFUL FOR A FEW MOMENTS BUT STOPPED SOON AFTER AND CONTINUED TO LOOK THROUGH SOME MAGAZINES. PT WILL CONTINUE TO ATTEND AN DPARTICIPATE IN FUTRUE GROUP SESSIONS.
--- NOTE | 2019-01-24 19:13 | NUR ---
Shift chart check completed.
[2019-01-24 20:00] VITALS: BP 144/76
--- NOTE | 2019-01-24 21:30 | NUR ---
Patient alert to person and place with confusion. ST/LT memory deficits noted. No s/s of responding to internal stimuli noted. Patient compliant with medications without any difficulty. Provided 1:1 for emotional support. Redirected/reoriented when needed. Unable to engage patient in conversation at this time. Plan to encourage medication compliance and continue to provide 1:1 for emotional support. Q 15 minute safety checks continued and maintained. See [facility] flowsheet for further documentation.
--- NOTE | 2019-01-25 00:17 | NUR ---
24 HR chart check completed.
--- NOTE | 2019-01-25 05:21 | NUR ---
Patient slept approx. 7 hours throughout shift. Q 15 minute safety checks continued and maintained.
[2019-01-25 07:18] LABS: INTERNATIONAL NORM RATIO 1.8 (2.0-3.5)
[2019-01-25 07:50] VITALS: BP 114/61
--- NOTE | 2019-01-25 08:20 | NUR ---
Shift chart check completed.
--- NOTE | 2019-01-25 12:20 | NUR ---
AM GROUP/EXERCISES/BRAIN GAMES/BEACH VOLLEYBALL PT ATTENDED AND PARTICIPATED IN ALL GROUP ACTIVITIES. PT PLEASNAT AND ON TASK WITH NO CRYING OR AGITATION EXPRESSED. PT WILL CONTINUE TO ATTEND AN DPARTICIPATE IN FUTURE GROUP SESSIONS.
--- NOTE | 2019-01-25 13:34 | NUR ---
PT STATES HE IS FEELING BETTER. PT ASSESSED FOR ORIENTATION LEVEL, MOOD AND AFFECT. ASSESSED FOR DEPRESSED MOOD, SI/HI. ASSESSED FOR HALLUCINATIONS AND DELUSIONS. ASSESSED FOR SLEEP QUALITY AND APPETITE. PT ALERT, ORIENTED TO PERSON AND PLACE, APPROXIMATE TO TIME. MOOD IS FLAT, AFFECT IS BLUNTED. PT WILL INTERACT APPROPRIATELY WITH PEERS AND STAFF. INTERACTION IS MINIMAL, BUT APPROPRIATE TO CONTENT WITHOUT TEARFUL EPISODES. DENIES HALLUCINATIONS AND DELUSIONS. NO OVERT S/S OF ATTENDING TO INTERNAL STIMULI. PT REPORTS SLEEPING AND EATING WELL. WILL CONTINUE TO MONITOR PT FOR ORIENTATION LEVEL, MOOD AND AFFECT. WILL MONITOR FOR EPISODES OF TEARFULNESS. WILL CONTINUE TO MONITOR APPETITE AND SLEEP QUALITY. Q 15 MIN MONITORING PER POLICY FOR SAFETY.
[2019-01-25 20:00] VITALS: BP 127/81
--- NOTE | 2019-01-25 22:45 | NUR ---
P-ISOLATIVE, DEPRESSED MOOD. PATIENT ALERT WITH CONFUSION. 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 PATIENT WITH NO HALLUCINATIONS OR DELUSIONS. PATIENT WITH NO SUICIDAL OR HOMICIDAL IDEATIONS. PATIENT WITH NO RESPIRATORY DISTRESS. I-REDIRECTION WITH 1:1 THERAPEUTIC INTERVENTIONS AND PRESENT REALITY. EDUCATE AND ENCOURAGE MEDICATION COMPLIANCE. R-PATIENT WITH NO EPISODES OF CRYING OUT OR TEARFUL AT THIS TIME. PATIENT MEDICATION COMPLIANT. PATIENT WITH LITTLE INTERACTION WITH PEERS IN DINING AREA. PATIENT ISOLATIVE TO ROOM THROUGHOUT SHIFT. PATIENT PROVIDED NOURSHMENT, FLUIDS, TOILETING THROUGHOUT SHIFT. PATIENT PLEASANT AND COOPERATIVE WITH NURSING AT . P-CONTINUE TO ENCOURAGE MEDICATION COMPLIANCE, CONTINUE TO PRESENT REALITY, ENCOURAGE GROUP THERAPY WHILE AWAKE
--- NOTE | 2019-01-25 23:42 | NUR ---
P-ISOLATIVE, DEPRESSED MOOD. PATIENT ALERT WITH CONFUSION. PATIENT WITH SHORT TERM AND MANAGER OF FINANCIAL PLANNING MEMORY DEFICITS. PATIENT WITH NO HALLUCINATIONS OR DELUSIONS. PATIENT WITH NO SUICIDAL OR HOMICIDAL IDEATIONS. PATIENT WITH NO RESPIRATORY DISTRESS. I-REDIRECTION WITH 1:1 THERAPEUTIC INTERVENTIONS AND PRESENT REALITY. EDUCATE AND ENCOURAGE MEDICATION COMPLIANCE. R-PATIENT WITH NO EPISODES OF CRYING OUT OR TEARFUL AT THIS TIME. PATIENT MEDICAITON COMPLIANT. PATIENT WITH LITTLE INTERACTION WITH PEERS IN DINING AREA. PATIENT ISOLATIVE TO ROOM THROUGHOUT SHIFT. PATIENT PROVIDED NOURSHMENT, FLUIDS, TOILETING THROUGHOUT SHIFT. P-CONTINUE TO ENCOURAGE MEDICATION COMPLIANCE, CONTINUE TO PRESENT REALITY, ENCOURAGE GROUP THERAPY WHILE AWAKE
--- NOTE | 2019-01-26 | NUR ---
24 HR chart check completed.
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
--- NOTE | 2019-01-26 05:56 | NUR ---
PATIENT SLEPT 3-4 HOURS OF INTERRUPTED SLEEP THROUGHOUT SHIFT. Q 15 MINUTE CHECKS MAINTAINED
--- NOTE | 2019-01-26 07:46 | NUR ---
OT NOTE Pt was seen this A.M. 1:1 for 15 minute OT session with DESIGN LEAD and nursing staff present for observation only. Upon arrival pt was sitting upright in the dining room in his w/c. Pt identified by name and and had no complaints at this time. Pt was taken to his bedroom where he completed sit to stand transfer from w/c with CGA for safety. Functional mobility completed into the bathroom with CGA and use of w/w for UE support. There pt transferred on/off standard commode with CGA and use of grab bar for UE support. While sitting on commode pt doffed and donned B socks with SBA. Pt then stood sink side with CGA while washing his face, hands, and completing hair. Pt was unsteay at first and after education to correct his base of support and stand closer to the sink versus leaning forward pt then had no other LOB. Pt was left sitting upright in the w/c in the dining room under [facility] staff supervision. Continue with rec D/C plan of 24 hour care and assist. LIDIA Durham/José Miguel
[2019-01-26 07:54] VITALS: BP 117/58
--- NOTE | 2019-01-26 08:00 | NUR ---
Treatment Plan meeting with Dr. Kim, RN, SW and Public Affairs Specialist. Plan for discharge Sat/. Pt. is to return home with his . PASRR to be completed in case requests placement.
--- NOTE | 2019-01-26 08:02 | NUR ---
PHYSICAL THERAPY Patient seen this am for therapy visit and was sitting up in activity room w/c upon Therapist arrival. OT volunteer services assistant was present for observation only during CONSULTING PRACTICE DIRECTOR visit as patient voices no c/o's pain, however did state not sleeping well last night. Patient transfers sit to stand SBA and ambulates with use of wh walker, 30'x 1 to bathroom, SBA, demonstrating a little unsteady gait pattern. Patient also a cautious while navigating in room around tight spaces and completed addtional gait 75'x 1, SBA, demonstrating increased fatigue with decreased stride. Patient returned to activity room in w/c and remained under [facility] staff Supervision. Will continue per POC as tolerated, total treatment time 16 minutes. Jeffrey Cruz, CONSULTING PRACTICE DIRECTOR
--- NOTE | 2019-01-26 12:25 | NUR ---
SPOKE WITH DR. FERNANDES AT [phone] RE: PT/INR PER HE WILL TAKE A LOOK AT THEM. NO FURTHER ORDERS AT THIS TIME
--- NOTE | 2019-01-26 13:54 | NUR ---
P: PT REFUSED 1300 MEDS, SPITTING THEM OUT. PT RESTLESS AT TIMES I: ENCOURAGED MED COMPLIANCE, PROVIDED EMOTIONAL SUPPORT AND 1:1 FOR PT TO VOICE FEELINGS R: PT ALERT TO PERSON ONLY, CONFUSION AND SHORT TERM MEMORY DEFICITS NOTED PER PT BASELINE. PT CONTINUES TO REFUSE 1300 MEDS, UNABLE TO PROVIDE MED EDUCATION D/T COGNITION P: MONITOR PT BEHAVIORS ON Q15 MIN SAFETY CHECKS, ENCOURAGE MED COMPLIANCE, PROVIDE EMOTIONAL SUPPORT AND 1:1 FOR PT TO VOICE FEELINGS
--- NOTE | 2019-01-26 15:09 | NUR ---
Family meeting held with pt's Alana and son Jorge Luis. Discussed pt's current status and behaviors which led to [facility] admission. Discussed pt's medications. Discharge plan discussed. Alana is unsure if she is able to care for pt at home as she is recovering from her own medical issues. Discussed SNF at [facility] and then the possibility of pt transitioning to LTC there. Educated pt's family about payer sources for ECF. Alana has a Medicaid application that she plans on completing and will then give the application to this bid writer to submit to [employer].
--- NOTE | 2019-01-26 15:10 | NUR ---
P: PT MOOD IS DEPRESSED, TEARFUL AT TIMES. I: PROVIDED EMOTIONAL SUPPORT AND 1:1 FOR PT TO VOICE FEELINGS, ENCOURAGED MED COMPLIANCE AND PROVIDED MED EDUCATION R: PT ALERT TO PERSON, PLACE AND TIME. PT MED COMPLIANT WITHOUT DIFFICULTY, MED EDUCATION PROVIDED. PT CALM, INTERACTIVE WITH STAFF AND PEERS. NO HALLUCINATIONS OR DELUSIONS NOTED. PT DENIES ANY SUICIDAL THOUGHTS. P: MONITOR PT BEHAVIORS ON Q15 MIN SAFETY CHECKS, ENCOURAGE MED COMPLIANCE AND PROVIDE MED EDUCATION, PROVIDE EMOTIONAL SUPPORT AND 1:1 FOR PT TO VOICE FEELINGS.
--- NOTE | 2019-01-26 16:12 | NUR ---
PM GROUP/BINGO/LEISURE SKILLS PT ATTENDED AND PARTICIPATED IN ALL GROUP ACTIVITIES. PT DID NOT BECOME AGITATED OR CRY DURING THIS TIME. PT WILL CONTINUE TO ATTEND AND PARTICIPATE IN FUTURE GROUP SESSIONS.
--- NOTE | 2019-01-26 16:34 | NUR ---
HENS completed online and submitted successfully. Requires Second Level review. Faxed supporting documentation to [facility] . Referral faxed to [facility] at Request.
[2019-01-26 20:00] VITALS: BP 152/77
--- NOTE | 2019-01-26 23:43 | NUR ---
24 HR chart check completed.
--- NOTE | 2019-01-26 23:52 | NUR ---
24 HR chart check completed.
--- NOTE | 2019-01-27 02:16 | NUR ---
PATIENT WITH EPISODE X 1 OF TEARFULNESS. PATIENT CRYING OUT STATING "I ONLY HAVE ONE OUTFIT HERE. MY TOOK AN OUTFIT HOME. I NEED YOU TO CALL HER LATER AND GET ANOTHER OUTFIT". THIS NURSE ABLE TO REDIRECT PATIENT AND EXPLAIN THAT THERE IS A WASHER AND DRYER THAT ARE UTILIZED ON THE UNIT TO ENSURE THAT CLEAN CLOTHES WOULD BE PROVIDED. PATIENT RESTING IN BED AT THIS TIME PRAYING
--- NOTE | 2019-01-27 05:08 | NUR ---
Patient slept approx. 4 1/2 hours throughout shift. Q 15 minute safety checks continued and maintained.
--- NOTE | 2019-01-27 07:10 | NUR ---
PHYSICAL THERAPY Patient seen this am for therapy visit and was sitting in activity room w/c upon therapist arrival. OT bilingual teacher assistant was present for observation only during SERVICE CENTER SUPERVISOR visit as patient reports no c/o's pain, other than chronic B LE stiffness. Patient transfers sit to stand MIN A, unable to complete on first attempt, then rocking motion to perform upon second attempt. Patient ambulates with use of wh walker, 30'x 1 to bathroom then 100'x 1, CGA, demonstrating slow, steady yeimi with decreased stride. Patient still remains a little shaky during 180 turns and completed all treatment with increased fatigue. Patient returned to w/c in activity room and remained under [facility] staff Supervision. Will continue per POC as tolerated, total treatment time 14 minutes. Jeffrey Cruz, SERVICE CENTER SUPERVISOR
[2019-01-27 07:14] LABS: INTERNATIONAL NORM RATIO 2.1 (2.0-3.5)
--- NOTE | 2019-01-27 07:24 | NUR ---
OT NOTE Pt was seen this A.M. 1:1 for 24 minute OT session with MATERIAL STRESS TESTER and nursing staff present for observation only. Upon arrival pt was sitting upright in the w/c in the dining room. Pt identified by name and and had no complaints at this time. Pt was taken down to his room. Therapist requested for pt to verbalize his morning ADL routine and pt was able to recall 2 steps (make coffee and put his teeth in). Therapist then provided and educated pt with a written morning ADL routine consisting of 8 steps. While initally presented with pt stated "ohh yeah I do all that too." Pt then completed list. Pt transferred sit <> supine with SBA. Then donned B socks with Hung for inital start over his toes. He then proceeded into the bathroom where he transferred on/off standard commode with SBA and use of grab bar for UE support. Pt then required a verbal prompt to follow written routine due to asking what to do next. Pt was then able to follow routine that was placed on the wall by the sink. Consisting of washing his hands and face at the sink which he completed with SBA and one LOB occured while vision was cut requiring Hung to correct. Hair care and oral care completed with SBA for safety. Functional mobility completed back to the w/c with CGA and use of w/w. Pt was left sitting upright in the w/c in the dining room under [facility] staff supervision. Continue with POC as able. LIDIA Durham/José Miguel
[2019-01-27 07:49] VITALS: BP 148/68
--- NOTE | 2019-01-27 08:00 | NUR ---
Treatment Plan meeting with Dr. Kim, RN, AT, SW and Wire Mesh Knitter. Plan for discharge Sat/. PASRR was completed yesterday and Have Not received PASRR letter of Approval. requested referral to [facility]. Will follow with facility on Referral.
--- NOTE | 2019-01-27 08:14 | NUR ---
PT IS AWAKE, ALERT, EATING BREAKFAST IN DINING ROOM AT THIS TIME. ON UNIT TO SEE PT AT THIS TIME, UPDATE GIVEN.
--- NOTE | 2019-01-27 09:15 | NUR ---
Phoned [facility] and left a message requesting PASRR be expedited to prepare for discharge needs. Await return call.
--- NOTE | 2019-01-27 10:00 | NUR ---
ON UNIT TO SEE PT AT THIS TIME. MADE AWARE LYRICA ORDER DUE TO BE RENEWED THIS DATE.
--- NOTE | 2019-01-27 11:14 | NUR ---
Spoke to Giovana Perez Painting Department Supervisor at [facility] concerning Referral. Currently there are no beds available at [facility]. Possibly Saturday. Giovana states then they could try to take patient but it is not a guarantee and he would be Private Pay.
--- NOTE | 2019-01-27 11:55 | NUR ---
AM GROUP PT ATTENDED MORNING GROUP THERAPY AND PARTICIPATED BY DECORATING HIS BIRDZiarco. PT FINISHED QUICKLY AND CHOSE NOT TO DO ANY MORE. PT SAT AT TABLE WITH EYES CLOSED. PT EXHIBITED NO AGITATION OR CRYING DURING GROUP. PT WILL CONTINUE TO ATTEND AND PARTICIPATE IN GROUP
--- NOTE | 2019-01-27 14:10 | NUR ---
Met briefly with pt's Alana. Informed her that pt is unable to discharge to [facility], as they are full and also that pt is out of skilled days. Further informed Alana that [facility] does not take Medicaid pending, so even if a bed would be available, pt would not be able to discharge there. Discussed other options. Alana is going to speak to her children about discharge options. Await a decision.
--- NOTE | 2019-01-27 15:45 | NUR ---
PM GROUP/RELAXATION TECHNIQUES PT ATTENDED GROUP AND WORKED ON A WORDSEARCH WHILE LISTENING TO MUSIC. PT WOULD OCCASIONALLY DOZE OFF. PT EXHIBITED NO CRYING EPISODES OR AGITATION DURING GROUP.
--- NOTE | 2019-01-27 17:38 | NUR ---
P- MOOD APPEARS STABLE. PT DENIES FEELING SAD OR DEPRESSED. NO INAPPROPRIATE OUTBURSTS OF CRYING NOTED. I- ORIENTATION, MOOD AND BEHAVIOR ASSESSED. ASSESSED FOR SI/HI, INTENT OR PLAN. ASSESSED FOR S/S HALLUCINATIONS, PARANOIA AND/OR DELUSIONS. MEDICATIONS ADMINISTERED PER PHYSICIAN'S ORDERS. ASSISTANCE WITH ADL CARE PROVIDED NEEDED. ENCOURAGED PT TO ATTEND AND PARTICIPATE IN [facility] GROUPS AND ACTIVITIES. R- PT IS ALERT AND ORIENTED TO PERSON, PLACE, APPROXIMATE TIME, STATES IT IS JANUARY. UNABLE TO STATE EXACT DATE/YEAR WITHOUT LOOKING TO BOARD FOR REORIENTATION. MEMORY GAPS NOTED. RESPS EASY AND EVEN ON ROOM AIR. MOOD APPEARS STABLE THIS SHIFT. PT DENIES FEELING SAD/DEPRESSED. STATES "I'M JUST A LITTLE TIRED". PT DENIES SI/HI, INTENT OR PLAN. PT DENIES HALLUCINATIONS, NO RESPONSE TO INTERNAL SITMULI NOTED. NO PARANOIA OR DELUSIONS NOTED. PT IS CALM, PLEASANT AND COOPERATIVE. NO AGGRESSIVE BEHAVIORS. NO INAPPROPRIATE CRYING OUTBURSTS NOTED. PT IS MEDICATION COMPLIANT WITHOUT DIFFICULTY. NO DISTRESS NOTED. P- PLAN TO CONTINUE CURRENT TREATMENT, CONTINUE TO MONITOR MOOD AND BEHAVIORS, PROVIDE APPROPRIATE REORIENTATION, REDIRECTION AND 1:1 NEEDED. CONTINUE TO ENCOURAGE MEDICATION COMPLIANCE WELL GROUP ATTENDANCE AND PARTICIPATION.
[2019-01-27 20:57] VITALS: BP 133/64
--- NOTE | 2019-01-27 22:30 | NUR ---
P-ISOLATIVE, DEPRESSED MOOD. PATIENT ALERT WITH CONFUSION. PATIENT WITH SHORT TERM AND RECEIVING OPERATOR MEMORY DEFICITS. PATIENT WITH NO HALLUCINATIONS OR DELUSIONS. PATIENT WITH NO SUICIDAL OR HOMICIDAL IDEATIONS. PATIENT WITH NO RESPIRATORY DISTRESS. I-REDIRECTION WITH 1:1 THERAPEUTIC INTERVENTIONS AND PRESENT REALITY. EDUCATE AND ENCOURAGE MEDICATION COMPLIANCE. R-PATIENT WITH NO EPISODES OF CRYING OUT OR TEARFUL AT THIS TIME. PATIENT MEDICAITON COMPLIANT. PATIENT WITH LITTLE INTERACTION WITH PEERS IN DINING AREA. PATIENT ISOLATIVE TO ROOM THROUGHOUT SHIFT. PATIENT PROVIDED NOURSHMENT, FLUIDS, TOILETING THROUGHOUT SHIFT. P-CONTINUE TO ENCOURAGE MEDICATION COMPLIANCE, CONTINUE TO PRESENT REALITY, ENCOURAGE GROUP THERAPY WHILE AWAKE
--- NOTE | 2019-01-28 00:27 | NUR ---
24 HR chart check completed.
--- NOTE | 2019-01-28 05:31 | NUR ---
PATIENT SLEPT 6-7 HOURS INTERRUPTED SLEEP THROUGHOUT SHIFT. Q 15 MINUTE CHECKS MAINTAINED
--- NOTE | 2019-01-28 07:10 | NUR ---
OT NOTE Pt was seen this A.M. 1:1 for 24 minute OT session with ACCOUNT FINANCIAL MANAGER and nursing staff present for observation only. Upon arrival pt was sitting upright in the w/c in the dining room. Pt identified by name and and had no complaints at this time. Pt was taken down to his room where he transferred into bed sit to supine with SBA. There pt followed through 8 step morning ADL routine. Pt transferred supine to sit EOB with SBA. Pt donned B slippers while sitting EOB with SBA. Functional mobility completed into the bathroom with CGA and use of w/w. There he transferred on/off standard commode with SBA and use of grab bar for UE support. Pt then stood sink side while washing his face, hands, hair care, and oral care with SBA. Pt was unsteady while standing sink side without UE support requiring CGA. Pt was able to follow through visual morning routine however if he did not look at paper pt was unable to sequence ADL's. Pt was left sitting upright in w/c in the dining room under [facility] staff supervision. Continue with rec D/C plan of 24 hour supervision and assist. LIDIA Durham/José Miguel
[2019-01-28 07:25] LABS: INTERNATIONAL NORM RATIO 2.1 (2.0-3.5)
--- NOTE | 2019-01-28 07:49 | NUR ---
PHYSICAL THERAPY PT SITTING IN WC IN ACTIVITY ROOM UPON ARRIVAL. PT IDENTIFIED BY NAME AND . PT AGREED TO ALL PT TREAMENT THIS VISIT. PT HAD NO C/O THIS VISIT. FIBROUS WALLBOARD INSPECTOR PRESENT FOR OBSERVATION ONLY DURING TREATMENT. PT WHEELED WC FROM ACTIVITY ROOM TO BED ROOM (I). PT GAIT TRAINED 15FT X2 FURNITURE AND WALL WALKING WITH VC'S FOR PT TO USE HAND HELD ASSIST FROM MOVIE ACTOR FOR ASSISTANCES. PT PERFORMED STS TO AND FROM WC WITH USE OF BUE FOR ASSISTANCE. PT GAIT TRAINED 110FT X1 WITH FWW AND SBA PT IS UNSTEADY AT TIMES AND WAS ABLE TO STEADY PTS SELF. PT SITTING IN WC IN ACTIVITY ROOM AT END TREATMENT. PT SEEN 1:1 FOR 13MINS. TRISH GREENFIELD PTA
--- NOTE | 2019-01-28 08:00 | NUR ---
Treatment Plan meeting with Dr. Kim, RN, AT, SW and Product Promoter Retail Pet. Plan for discharge next week. PASRR remains pending. Pt. has requested [facility]. Yesterday there were no beds.
[2019-01-28 08:05] VITALS: BP 133/77
--- NOTE | 2019-01-28 11:53 | NUR ---
AM GROUP PT ENTERED GROUP THERAPY LATE AND DECIDED TO WORK ON A [employer]. PT WAS OBSERVED TO FALL ASLEEP WITH PENCIL IN HAND SEVERAL TIMES. PT EXHIBITED NO CRYING OR AGITATION DURING GROUP.
--- NOTE | 2019-01-28 12:14 | NUR ---
Received Message from Giovana at [facility]. They will have beds today and she is to discuss Finances with Patient . Clinical Updates faxed to [facility]. PASRR remains pending.
--- NOTE | 2019-01-28 13:59 | NUR ---
pt affect is flat. pt minimally interacts with staff. depressed mood. pt assessed for orientation level, mood and affect. assessed for depressed mood, si/hi, intent or plan. assessed for hallucinations or delusions. assessed for sleep quality and appetite. pt is alert, oriented to person and place, approximate to time. pt unable to state the date, is able to state the Trump is the president. pt's mood appears depressed, pt is isolative and withdrawn to self. verbal interactions wt staff and peers are minimal. pt will give brief one word responses. pt affect is flat. denies si/hi, intent and plan. denies hallucinations and delusions. no overt paranoia or s/s of attending to internal stimuli noted. pt reporst sleeping well and eating well. will continue to monitor mood. will provide emotional support as appropriate. will provide reorienation as appropriate. will encourage continued medication compliance and participation in group therapy for socialization and support. maintain q15 min monitoring for safety.
--- NOTE | 2019-01-28 15:15 | NUR ---
Giovana at [facility] is attempting to Precert patient for SNF. Giovana the Merchandise Coordinator at [place] Is working on financial aspect with the patient with [employer]. PASRR remains pending.
--- NOTE | 2019-01-28 15:38 | NUR ---
Met with pt's and son Don. Discussed discharge plan. Assisted pt's family in completing Medicaid application. The tentative plan is for pt to discharge to [facility] if financial plan can be agreed upon between family and NF.
[2019-01-28 19:48] VITALS: BP 135/82
--- NOTE | 2019-01-29 00:20 | NUR ---
PT RESTING QUIETLY IN BED AT THIS TIME, COOPERATIVE WITH MEDICATION ADMINISTRATION, HE EVEN INFORMED THE MILEU'S THAT HE HAD NOT HAD THEM YET AND WANTED TO WAIT BEFORE GOING TO LAY DOWN FOR BED. PT WAS COOPERATIVE WITH HOC ASSISTED STAFF TO GET CHANGED AND TRANSFER TO HIS BED. NO SI/HI OR DELUSIONS NOTED. PT HAD NO EPISODES OF WEEPING THIS EVENING, WILL CONTINUE TO MONITOR 15 MIN CHECKS THROUGHT OUT SHIFT.
--- NOTE | 2019-01-29 05:03 | NUR ---
PT SLEPT 3.5 HOURS, AT 0330 PT BEGAN TO AWAKEN RANDOMLY WITH WEEPY AFFECT, PT TAKEN TO TOILET AND RESETTLED IN BED BY THIS NURSE X2
--- NOTE | 2019-01-29 07:00 | NUR ---
OT NOTE Pt was seen this A.M. 1:1 for 20 minute OT session with PROFESSOR OF MUSIC and nursing staff present for observation only. Upon arrival pt was sitting upright in the w/c in the dining room. Pt identified by name and and had complaints of increased fatigue. Pt was taken to his bedroom where he completed sit to stand from chair level with Hung and use of w/w for UE support. Pt was requested to follow through 8 step written morning ADL routine. Pt completed functional mobility into the bathroom with CGA and use of w/w, pt had tow LOB into the bathroom this session that occured to both the R and L side that required Hung to correct. Educated pt on safety awareness due to walking away without the walker and using various items throughout the room. Pt transferred on/off standard commode with CGA and use of grab bar for UE support. Pt then stood sink side while washing his hands, face, and completing hair care with CGA due to being unsteady. A seated rest break wasgiven due to pt reporting that he felt his knees where going to buckle. Pt was left sitting upright in the w/c in the dining room under [facility] staff supervision. Continue with rec D/C plan of OT and 24 hour supervision and assist at SNF. LIDIA Durham/José Miguel
--- NOTE | 2019-01-29 08:00 | NUR ---
Treatment Plan meeting with Dr. Kim, RN, AT, SW and Access Rn. Plan for discharge next week. Plan was for Pt. to return home but he requires further care. Referral sent to [facility] and they have accepted. Giovana Criminal Researcher From [facility] started [facility] for SNF. Clinical Updates faxed to [facility]. PASRR remains Pending. Audio Visual Equipment Rental Clerk has not seen Patient.
[2019-01-29 09:20] VITALS: BP 80/52
--- NOTE | 2019-01-29 09:36 | NUR ---
SPOKE WITH DR. FERNANDES AT [phone] RE: PT BP OF 80/52M, HELD LASIX AND BP MEDS PER NURSING JUDGEMENT AND ARE ENCOURAGING FLUID. NO FUTHER ORDERS AT THIS TIIME.
--- NOTE | 2019-01-29 09:48 | NUR ---
PHYSICAL THERAPY Patient seen this am for therapy visit and was sitting in activity room w/c upon therapist arrival. OT medical services assistant was present for observation only during ESTIMATOR LUMBER visit as patient reports no new c/o's. Patient transfers sit to stand CGA, demonstrating slow initial rise and ambulates with use of wh walker, 40'x 1, CGA, demonstrating slow, unsteady eyimi, decreased stride and reporting R knee buckling at times. Patient returned to w/c and instructed on B LE therex, all planes, x 20 reps each to increase LE strength. Patient able to comple full AROM without pain c/o R LE and remained in activity room w/c under [facility] staff Supervision. Will continue per POC as tolerated, total treatment time 17 minutes. Jeffrey Cruz, ESTIMATOR LUMBER
--- NOTE | 2019-01-29 11:51 | NUR ---
AM GROUP/EXERCISE AND BALL TOSS PT ATTENDED GROUP AND PARTICIPATED IN ALL ACTIVITES. PT EXHIBITED NO CRYING EPISODES OR AGITATION DURING GROUP. PT WAS ACTIVE AND ENGAGED IN THE ACTIVITIES.
--- NOTE | 2019-01-29 13:40 | NUR ---
P: ISOLATIVE; LESS DEPRESSED, "FEELING BETTER" I: ENCOURAGEMENT PATIENT TO PARTICIPATE IN GROUP SESSION AND TO SOCIALIZE WITH OTHER PATIENT. ONE ON ONE PROVIDED NEEDED FOR EMOTIONAL SUPPORT AND REDIRECT NEEDED. R: EFFECTIVE; PATIENT PARTICIPATED IN GROUP SESSION. PATIENT IS ALERT AND ORIENT TO PERSON, PLACE AND TIME; ABLE TO VOICE NEEDS. MOOD IS IMPROVING, LESS DEPRESSED. NO EPISODES OF CRYING NOTED. DENEIS ANY HALLUCINATIONS, DELUSION, HI/SI OR PAIN. 1 PERSON ASSIST WITH ACTIVITIES OF DAILY LIVING, CONTINENT OF BOWEL AND BLADDER. SET UP FOR MEALS, INTAKES ARE GOOD WITH ADEQUATE FLUIDS; FLUIDS ENCOURAGED. SELF PROPELS IN WHEELCHAIR. PATIENT HAS BEEN IN A CALM DEMEANOR. MEDICATION COMPLAINT WITH EDUCATION PROVIDED. Q 15 MINUTE SAFETY CHECKS MAINTAINED. P: CONTINUE TO MONITOR MOOD, EPISODES OF CRYING; PROVIDE ONE ON ONE FOR EMOTIONAL SUPPORT AND REDIRECTIONS NEEDED.
--- NOTE | 2019-01-29 15:42 | NUR ---
PM GROUP PT WAS PRESENT FOR AFTERNOON GROUP AND SAT AT A TABLE WITH PEERS ATTEMPTING A WORDSEARCH. PT KEPT FALLING ASLEEP. PT EXHIBITED NO CRYING EPISODES OR SIGNS OF AGITATION.
--- NOTE | 2019-01-29 16:00 | NUR ---
Shift chart check completed.
[2019-01-29 20:00] VITALS: BP 121/84
--- NOTE | 2019-01-29 22:49 | NUR ---
24 HR chart check completed.
--- NOTE | 2019-01-29 23:50 | NUR ---
P-DEPRESSED I-PROVIDE VERBAL INTERVENTION FOR EMOTIONAL SUPPORT. ADMINISTER MEDS. MONITOR SLEEP R-MOOD MILDLY DEPRESSED, BUT STATED THAT HE IS FEELING A LITTLE BETTER. ALERT & ORIENTED X 3. SAT IN THE DINING ROOM AMONG PEERS BUT REMAINED ISOLATIVE. HAS REMAINED CALM WITH NO AGITATION OR CRYING EPISODES. COMPLIANT TAKING MEDICATIONS. P-CONTINUE TO MONITOR, PROVIDE PHYSICAL & EMOTIONAL SUPPORT NEEDED.
--- NOTE | 2019-01-30 05:33 | NUR ---
PT HAS SLEPT FROM [id number]. BRIEF CRYING BUT CALMED INDEPENDENTLY.
--- NOTE | 2019-01-30 06:37 | NUR ---
AM BEDSIDE GLUCOSE 169
--- NOTE | 2019-01-30 07:10 | NUR ---
PHYSICAL THERAPY Patient seen this am for therapy visit and was sitting in activity room w/c upon therapist arrival. OT furniture removalist's assistant was present for observatin only during BOWLING PIN REFINISHER session this morning as patient reports no c/o's pain. Patient was very pleasant and transfers at rail with CGA, performing side step gait each direction, 20'x 4, CGA. Patient also completed backward walk, 10' x 2, no LOB, high step marching gait and 180 / 360 turns without AD, demonstrating LOB x 2. Patient was very cautious this session and completed all treatment reporting no new c/o's. Patient returned to his w/c and remained in activity room under [facility] staff Supervision awaiting breakfast. Will continue per POC as tolerated, total treatment time 16 minutes. Jeffrey Cruz, BOWLING PIN REFINISHER
--- NOTE | 2019-01-30 07:53 | NUR ---
OT NOTE Pt was seen this A.M. 1:1 for 15 minute OT session with PANEL CUTTER and nursing staff present for observation only. Upon arrival pt was sitting upright in the w/c in the dining room. Pt identified by name and and had complaints of increased fatigue. Pt was taken out into the hallway where he completed multiple sit to stand transfers from chair level with Hung and education for proper hand placement. Challenged pt's static standing tolerance needed for increased I in self care tasks and functional transfers, pt was able to tolerate aprox 5 minutes at a time before sitting due to fatigue. Then challenged pt's dynamic standing tolerance while standing without UE support and pt was able to tolerate aprox 2 minutes at a time before sitting due to becoming unsteady and fatigue. Pt was left sitting upright in the w/c in the dining room under U staff supervision. Continue with rec D/C plan to OT and 24 hour supervision and assist at SNF. LIDIA Durham/José Miguel
[2019-01-30 08:00] VITALS: BP 119/59
--- NOTE | 2019-01-30 08:00 | NUR ---
Received word from Giovana at [place] that SNF Auth is denied. Pt. requires PEER to PEER with Number to call by Noon Today. Dr. Kim would like for Hospitalist Group to do the PEER to PEER. Call placed to Hospitalist office and spoke with Diane. Murillo the Nurse will be here at 9:00 a.m. Will call at that time.
--- NOTE | 2019-01-30 08:00 | NUR ---
Treatment Plan meeting with Dr. Kim, RN, SW and Obstetrics Nurse Practitioner. Plan for discharge Next week. Pt. was accepted at [facility] when Stable.
--- NOTE | 2019-01-30 09:32 | NUR ---
Notified Hospitalist Nurse Lidia that Patient requires PEER To PER review for SNF placement. [facility] Lobo is assigned to patient today for PEER to PEER .
--- NOTE | 2019-01-30 09:35 | NUR ---
NOTIFIED PRN ATIVAN ORDER FROM ADMISSION . GAVE VERBAL ORDER FOR ATIVAN 1MG PO/IM Q4H PRN AGITATION/ANXIETY X 30 DAYS. READ BACK AND VERIFIED. WITNESSED BY 2ND RN MAYRA.STEVENSON.
--- NOTE | 2019-01-30 13:35 | NUR ---
PATIENT IS ALERT AND ORIENT TO PERSON, PLACE, SOMEWHAT TIME AND SITUATION; ABLE TO VOICE NEEDS. MOOD IS SLIGHTLY DEPRESSED BUT STABLE. DENIES ANY HALLUCINATIONS, DELUSIONS, HI/SI OR PAIN. 1 PERSON ASSIST WITH ACTIVITIES OF DAILY LIVING, CONTINENT OF BOWEL AND BLADDERS. SET UP FOR MEALS, INTAKES ARE GOOD WITH ADEQUATE FLUIDS. MEDICATION COMPLAINT. Q 15 MINUTE SAFETY CHECKS MAINTAINED. INTERACTIVE WITH STAFF. ONE CRYING EPISODE. ONE ON ONE PROVIDED AND EFFECTIVE. CONTINUE TO MONITOR MOOD, PROVIDE ONE ONE ONE AND REDIRECTION NEEDED.
--- NOTE | 2019-01-30 13:49 | NUR ---
New orders received for PT evaluation with pt already on PT caseload while on U. Yarely Yo, PT
--- NOTE | 2019-01-30 15:19 | NUR ---
[place] that pt has been accepted to [facility] under skilled level of care. Informed pt's Alana of this. Await PASRR determination.
--- NOTE | 2019-01-30 15:47 | NUR ---
Clinical Updates faxed to [facility].
--- NOTE | 2019-01-30 16:01 | NUR ---
Shift chart check completed.
[2019-01-30 20:00] VITALS: BP 120/63
--- NOTE | 2019-01-30 20:19 | NUR ---
24 HR chart check completed.
--- NOTE | 2019-01-30 21:29 | NUR ---
P-MILDLY DEPRESSED I-PROVIDE VERBAL INTERVENTION FOR EMOTIONAL SUPPORT. ADMINISTER MEDS. MONITOR SLEEP R-MOOD MILDLY DEPRESSED, STATED THAT HE IS FEELING "GOOD". ALERT & ORIENTED X 3 & SOMEWHAT SITUATION. SAT IN THE DINING ROOM AMONG PEERS QUIETLY. HAS REMAINED CALM WITH NO AGITATION OR CRYING EPISODES THUS FAR. COMPLIANT TAKING MEDICATIONS. HS BEDSIDE GLUCOSE 274. P-CONTINUE TO MONITOR, PROVIDE PHYSICAL & EMOTIONAL SUPPORT NEEDED.
--- NOTE | 2019-01-31 05:32 | NUR ---
PT HAS SLEPT PAST 2200.
--- NOTE | 2019-01-31 06:53 | NUR ---
AM BEDSIDE GLUCOSE 161
--- NOTE | 2019-01-31 07:35 | NUR ---
PT AWAKE AND ALERT. RESPS EASY AND EVEN ON ROOM AIR. SITTING AT DINING ROOM TABLE FOR BREAKFAST WITH MALE PEERS. NO DISTRESS NOTED.
--- NOTE | 2019-01-31 08:12 | NUR ---
GASPER LANDFILL GAS COLLECTION OPERATOR ON UNIT TO SEE PT AT THIS TIME, UPDATE GIVEN.
[2019-01-31 08:14] VITALS: BP 149/72
--- NOTE | 2019-01-31 09:53 | NUR ---
ON UNIT TO SEE PT AT THIS TIME.
--- NOTE | 2019-01-31 11:37 | NUR ---
AM GROUP/EXERCISES/AROMATHERAPY PT ATTENDED AND PARTICIPATED DURING GROUP. PT PLEASANT AND ON TASK WITH NO AGITATION OR CRYING EXPRESSED AT THIS TIME. PT WILL CONTINUE TO ATTEND AN DPARTICIPATE IN FUTURE GROUP SESSIONS.
--- NOTE | 2019-01-31 15:18 | NUR ---
P- MOOD APPERS STABLE. PT DENIES FEELING SAD/DEPRESSED. NO INAPPROPRIATE CRYING OUTBURSTS NOTED. PT STATES "THE ONLY THING I NEED IS TO GET OUT OF HERE SOON". I- ORIENTATION, MOOD AND BEHAVIOR ASSESSED. ASSESSED PT FOR SI/HI, INTENT OR PLAN. ASSESSED PT FOR S/S HALLUCINATIONS, PARANOIA AND/OR DELUSIONS. MEDICATIONS ADMINISTERED PER PHYSICIAN'S ORDERS. ASSISTANCE WITH ADL CARE PROVIDED NEEDED. ENCOURAGED PT TO ATTEND AND PARTICIPATE IN VILLALBA MILIEU GROUPS AND ACTIVITIES. R- PT IS ALERT AND ORIENTED WITH MILD PERIODS OF CONFUSION NOTED. MILD MEMORY GAPS NOTED AT TIMES. RESPS EASY AND EVEN ON ROOM AIR. MOOD APPEARS STABLE, PT DENIES FEELING SAD OR DEPRESSED, STATES HE JUST WANTS TO "GET OUT OF HERE SOON". PT DENIES SI/HI, INTENT OR PLAN. PT DENIES HALLUCINATIONS, NO RESPONSE TO INTERNAL STIMULI NOTED. NO PARANOIA OR DELUSIONS NOTED. PT IS CALM, PLEASANT AND COOPERATIVE. INTERACTIVE WITH STAFF AND PEERS. MEDICATION COMPLIANT WITHOUT DIFFICULTY. NO INAPPROPRIATE OUTBURSTS OF CRYING NOTED. NO AGGRESSIVE BEHAVIORS OR ELOPEMENT ATTEMPTS MADE THIS SHIFT. NO DISTRESS NOTED. P- PLAN TO CONTINUE CURRENT TREATMENT, CONTINUE TO MONITOR MOOD AND BEHAVIORS. PROVIDE APPROPRIATE REORIENTATION, REDIRECTION AND 1:1 NEEDED. CONTINUE TO ENCOURAGE MEDICATION COMPLIANCE WELL GROUP ATTENDANCE AND PARTICIPATION.
--- NOTE | 2019-01-31 15:33 | NUR ---
SHIFT CHART CHECK COMPLETED.
--- NOTE | 2019-01-31 15:55 | NUR ---
PM GROUP/MOVIE/RELAXTION PT ATTENDED AN DPARTICIPATED DURING GROUP. PT DID NOT CRY OR BECOME AGITATED AT THIS TIME. PT WILL CONTINUE TO ATTEND AN DPARTICIPATE IN FUTURE GROUP SESSIONS.
--- NOTE | 2019-01-31 16:21 | NUR ---
Shift chart check completed.
--- NOTE | 2019-01-31 17:44 | NUR ---
PT BECAME TEARFUL BEFORE ARRIVED FOR VISTATION. STATED TO MENTAL HEALTH WORKER HE WAS UPSET BECAUSE HE WAS "JUST THINKING" AND "HAS BEEN HERE TOO MANY DAYS". PT THEN ARRIVED AND PT IS CURRENTLY IN QUIET ROOM VISITING WITH AT THIS TIME.
[2019-01-31 19:12] VITALS: BP 132/78
--- NOTE | 2019-01-31 19:39 | NUR ---
24 HR chart check completed.
--- NOTE | 2019-01-31 21:29 | NUR ---
P-MILDLY DEPRESSED I-PROVIDE VERBAL INTERVENTION FOR EMOTIONAL SUPPORT. ADMINISTER MEDS. MONITOR SLEEP R-MOOD MILDLY DEPRESSED, STATED THAT HE HAD A GOOD DAY. ALERT & ORIENTED X 3 & SOMEWHAT SITUATION. SAT IN THE DINING ROOM AMONG PEERS QUIETLY WATCHING TV. HAS REMAINED CALM WITH NO CRYING EPISODES THUS FAR. COMPLIANT TAKING MEDICATIONS. HS BEDSIDE GLUCOSE 229. P-CONTINUE TO MONITOR, PROVIDE PHYSICAL & EMOTIONAL SUPPORT NEEDED.
--- NOTE | 2019-02-01 05:26 | NUR ---
PT HAS SLEPT QUIETLY PAST 2200.
--- NOTE | 2019-02-01 05:30 | NUR ---
PT HAS SLEPT PAST 2200 WITH A BRIEF AWAKENING TO GO TO THE BATHROOM & RESTED QUIETLY IN BED FOR ABOUT AN HOUR BEFORE RETURNING TO SLEEP.
--- NOTE | 2019-02-01 06:25 | NUR ---
AM BEDSIDE GLUCOSE 196
[2019-02-01 07:19] VITALS: BP 121/70
--- NOTE | 2019-02-01 08:05 | NUR ---
ON UNIT TO SEE PT AT THIS TIME.
--- NOTE | 2019-02-01 08:07 | NUR ---
PT AWAKE AND ALERT. VERBAL AND PLEASANT. RESPS EASY AND EVEN ON ROOM AIR. EATING BREAKFAST AT DINING ROOM TABLE WITH PEERS. ON UNIT TO SEE PT AT THIS TIME.
--- NOTE | 2019-02-01 14:43 | NUR ---
P- MOOD MILDLY DEPRESSED. PT REPORTS FEELING "A LITTLE DEPRESSED TODAY, I'M NOT GETTING OUT OF HERE QUICK I THOUGHT I WAS". I- ORIENTATION, MOOD AND BEHAVIOR ASSESSED. ASSESSED PT FRO SI/HI, INTENT OR PLAN. ASSESSED PT FOR S/S HALLUCINATIONS, PARANOIA AND/OR DELUSIONS. MEDICATIONS ADMINISTERED PER PHYSICIAN'S ORDERS. ASSISTANCE WITH ADL CARE PROVIDED NEEDED. ENCOURAGED PT TO ATTEND AND PARTICIPATE IN VILLALBA MILIEU GROUPS AND ACTIVITIES. R- PT IS ALERT AND ORIENTED X4. MILD MEMORY GAPS NOTED AT TIMES. RESPS EASY AND EVEN ON ROOM AIR. MOOD APPEARS MILDLY DEPRESSED. AFFECT APPROPRIATE. PT REPORTS FEELING "A LITTLE DEPRESSED TODAY, I'M NOT GETTING OUT OF HERE QUICK I THOUGHT I WAS". PT ABLE TO RECALL CONVERSATION WITH THIS AM REGARDING DISCHARGE SOON ARRANGEMENTS ARE SETTLED AND THAT THERE SHOULD BE AN UPDATE TOMORROW. EMOTIONAL SUPPORT PROVIDED. PT DENIES SI/HI, INTENT OR PLAN. PT DENIES HALLUCINATIONS, NO S/S INTERNAL STIMULI NOTED. NO PARANOIA OR DELUSIONS NOTED. PT IS MEDICATION COMPLIANT WITHOUT DIFFICULTY. NO AGGRESSIVE BEHAVIORS DISPLAYED OR ELOPEMENT ATTEMPTS MADE THIS SHIFT. NO DISTRESS NOTED. P- PLAN TO CONTINUE CURRENT TREATMENT, CONTINUE TO MONITOR MOOD AND BEHAVIORS, PROVIDE APPROPRIATE REORIENTATION, REDIRECTION AND 1:1 NEEDED. CONTINUE TO ENCOURAGE MEDICATION COMPLIANCE WELL GROUP ATTENDANCE AND PARTICIPATION.
[2019-02-01 19:19] VITALS: BP 132/71
--- NOTE | 2019-02-01 21:36 | NUR ---
Patient alert to person and place with confusion. ST/LT memory deficits noted. No s/s of responding to internal stimuli noted. Patient compliant with medications without any difficulty. Provided 1:1 for emotional support. Redirected/reoriented when needed. Patient's mood depressed at this time. Unable to engage patient in conversation at this time. Plan to encourage medication compliance and continue to provide 1:1 for emotional support. Also plan to encourage patient to be more interactive and talkative to staff and other patients. Q 15 minute safety checks continued and maintained. See [facility] flowsheet for further documentation.
--- NOTE | 2019-02-02 00:11 | NUR ---
24 HR chart check completed.
--- NOTE | 2019-02-02 05:21 | NUR ---
PT SLEPT 7 HOURS NO AWAKENINGS
--- NOTE | 2019-02-02 07:00 | NUR ---
PHYSICAL THERAPY Patient seen this am 1:1 for therapy visit and was sitting in activity room Katie chair upon therapist arrival. OT assistant operations manager was present for observation only during MARBLE MACHINE TENDER visit as patient was very alert / pleasant this morning. Patient voices no c/o's pain and transfers sit to stand CGA, ambulating with use of wh walker 20'x 1 to bathroom. Patient ambulated additional 35' x 1, wh walker, CGA, demonstrating slow yeimi, decreased stride and unsteady due to quick onset of fatigue. Patient returned to w/c in activity room awaiting breakfast under [facility] staff Supervision. Will continue per POC as tolerated, total treatment time 16 minutes. Jeffrey Cruz, MARBLE MACHINE TENDER
--- NOTE | 2019-02-02 07:15 | NUR ---
OT NOTE Pt was seen this A.M. 1:1 for 15 minute OT session with PIPEFITTER WELDER and nursing staff present for observation only. Upon arrival pt was sitting upright in the dining room. Pt identified by name and and had complaints of increased fatigue. Pt was taken to his bedroom where pt completed written morning ADL routine consisting of 8 steps. Pt transferred sit <> supine in bed with SBA followed by functional mobility into the bathroom with CGA and use of w/w for UE support. There pt transferred on/off standard commode with SBA and use of grab bar for UE support. Clothing management completed with CGA for safety while reaching towards his knees. Pt then stood sink side while washing his face, hands, and completing hair care with SBA for safety. Pt was left sitting upright in the w/c in the dining room under U staff supervision. Continue with OT and 24 hour supervision and assist at SNF. LIDIA Durham/José Miguel
--- NOTE | 2019-02-02 08:00 | NUR ---
Treatment Plan meeting with Dr. Kim, RN, AT, SW and Bone Tender. Plan for discharge when PASRR returns. Pt. is [facility] for [facility] which expires this evening. [facility] will need resubmitted.
--- NOTE | 2019-02-02 08:42 | NUR ---
Phoned [facility] to check on status of PASRR. Spoke to Luz Maria who stated that she is going to investigate the status and return this procedure writer's call.
[2019-02-02 08:52] VITALS: BP 108/61
--- NOTE | 2019-02-02 09:04 | NUR ---
PHYSICAL THERAPY Patient progressing well with skilled PT services. Recommend to continue with PT services until discharge from facility. Extension of goals and POC to February. Patient to continue progression with gait (100' CGA, side stepping 50'x2 with no LOB), dynamic balance (side stepping, reaching, bending with no LOB), and turns (180 and 360 without LOB). Increase dynamic balance and endurnace to reduce risk of falls. Thank you. Bekah Segovia,PT,DPT.
--- NOTE | 2019-02-02 10:03 | NUR ---
Per Luz Maria at [facility], Ana Luisa Brand is to be at [facility] today to complete pt assessment for PASRR.
--- NOTE | 2019-02-02 10:22 | NUR ---
DR. NAYLOR ON UNIT TO ASSESS PT, UPDATE PROVIDED.
--- NOTE | 2019-02-02 11:59 | NUR ---
AM GROUP PT ATTENDED GROUP AND PARTICIPATED BY CUTTING OUT SOME SHAPES AND LISTENING TO MUSIC. PT STATED, "I AM VERY TIRED AND JUST WANT TO RELAX." PT MOVED FROM WHEELCHAIR TO ROCKING CHAIR AND PROMPTLY FELL ASLEEP. PT EXHIBITED NO INAPPROPRIATE CRYING OR AGITATION DURING GROUP. PT IS NOTICABLY LESS TALKATIVE TODAY COMPARED TO LAST WEEK.
--- NOTE | 2019-02-02 13:21 | NUR ---
Met with pt and his Alana - both of whom expressed frustration about pt not discharging. Empathized and explained that we continue to wait for the PASRR determination and this is preventing the discharge. Educated them further about the process. Also informed them that the [facility] import customs clearing agent is to be here today to complete the PASRR assessment. Both voiced understanding.
--- NOTE | 2019-02-02 14:01 | NUR ---
Clinical Updates faxed to [facility] Attn: Giovana.
--- NOTE | 2019-02-02 15:30 | NUR ---
CONTINUED REVIEW LEFT ON VOICE MAIL FOR MARILYN AT [phone]. AWAITING RETURN CALL.
--- NOTE | 2019-02-02 15:35 | NUR ---
PM GROUP PT ATTENDED AFTERNOON GROUP THERAPY AND PARTICIPATED BY WORKING A WORDSEARCH AND LISTENING TO MUSIC. PT WAS QUIET AND ON TASK. PT EXHIBITED NO AGITATION OR ANY CRYING.
--- NOTE | 2019-02-02 16:57 | NUR ---
GENTLEMEN FROM [facility] CALLED IN ADVISED THAT HE WILL BE HERE TO SEE PT THIS EVENING.
--- NOTE | 2019-02-02 17:33 | NUR ---
PT ALERT TO PERSON, PLACE AND TIME. PT MED COMPLIANT WITHOUT DIFFICULTY, MED EDUCATION PROVIDED. PT CALM,MOOD IS SLIGHTLY DEPRESSSED PT STATES "I AM READY TO GET OUT OF HERE, WHEN CAN I LEAVE? EVERYONE ELSE GETS TO LEAVE BUT ME, THEY ALWAYS SAY SOON" EDUCATED PT ON PASRR PROCESS AND AWAITING ASCEND TO COME AND EVALUATE PT. NO HALLUCINATIONS OR DELUSIONS NOTED. PT DENIES ANY SUICIDAL THOUGHTS. PT UP TO WHEELCHAIR, WILL TRANSFER SELF. PT CONTINENT OF BOWEL AND BLADDER. PLAN IS TO MONITOR PT BEHAVIORS ON Q15 MIN SAFETYT CHECKS, ENCOURAGE MED COMPLIANCE, PROVIDE EMOTIONAL SUPPORT AND 1:1 FOR PT TO VOICE FEELINGS.
[2019-02-02 19:41] VITALS: BP 132/58
--- NOTE | 2019-02-02 20:48 | NUR ---
EVENING/AROMATHERAPY/COLORTHERAPY PT ATTENDED AND PARTICIPATED ON AND OFF. PT KEPT FALLING ASLEEP BUT WOULD ABRUPTLY WAKE TO FOCUS ON ACTIVITY. PT QUIET TO SELF AT THIS TIME. PT DID NOT BECOME AGITATED OR EXPRESS ANY CRYING AT THIS TIME. PT WILL CNTINUE TO ATTEND AND PARTICIPATE IN FUTURE GROUP SESSIONS.
--- NOTE | 2019-02-02 21:34 | NUR ---
Patient alert to person and place with confusion. ST/LT memory deficits noted. No s/s of responding to internal stimuli noted. Patient compliant with medications without any difficulty. Provided 1:1 for emotional support. Redirected/reoriented when needed. Patient's mood slightly depressed at this time. Plan to encourage medication compliance and continue to provide 1:1 for emotional support. Also plan to encourage patient to be more interactive and talkative to staff and other patients. Q 15 minute safety checks continued and maintained. See [facility] flowsheet for further documentation.
--- NOTE | 2019-02-03 00:08 | NUR ---
24 HR chart check completed.
--- NOTE | 2019-02-03 03:33 | NUR ---
CASIMIRO NICK FROM [facility] CALLED IN AT [phone] IN REFERENCE TO PT STATED SHE WOULD BE ON UNIT IN MORNING TO SEE PT.
--- NOTE | 2019-02-03 05:18 | NUR ---
Patient slept approx. 6 hours with 1 awakening. Q 15 minute safety checks continued and maintained.
--- NOTE | 2019-02-03 07:05 | NUR ---
PHYSICAL THERAPY Patient seen this am for therapy visit and was sitting up in activity room w/c upon therapist arrival. OT respiratory care assistant was present for observation only as patient voices no new c/o's. Patient transfers sit to stand CGA and performed several standing balance activities including eyes open / closed, Tandem walk, and backward walk, 10'x 4, CGA, demonstrating several bouts of unsteady gait with LOB x 2. Patient also unable to tolerate single leg stance secondary to immediate LOB each side. Patient ambulates with use of wh walker, CGA, 50'x 1, demontrating increased fatigue with slow gait pattern. Patient pretty much tolerates approx 2 minutes standing activity before quick onset of fatigue. Patient returned to w/c in activity room and remained under [facility] staff Supervision. Will continue per POC as tolerated, total treatment time 17 minutes. Jeffrey Cruz, TNT POWDER WORKER
--- NOTE | 2019-02-03 07:15 | NUR ---
OT NOTE Pt was seen this A.M. 1:1 for 15 minute OT session with MOBILE PAINT SPECIALIST and nursing staff present for observation only. Upon arrival pt was sitting upright in the dining room in his w/c. Pt was taken out into the hallway where he completed multiple sit to stand transfers from chair level with SBA and use of hand rail for UE support. Challenged pt's static and dynamic standing tolerance needed for increased I in self care tasks and functional transfers and increased endurance. Pt was able to tolerate aprox 2 minutes at a time of both static and dynamic before sitting due to fatigue. Pt was left sitting upright in the w/c in the dining room under U staff supervision. Continue with rec D/C plan to continue with OT and 24 hour assist/supervision while at SNF. LIDIA [place]/José Miguel
--- NOTE | 2019-02-03 07:40 | NUR ---
PT AWAKE AND ALERT. VERBAL AND PLEASANT. RESPS EASY AND EVEN ON ROOM AIR. SITTING IN DINING ROOM AWAITING BREAKFAST WITH PEERS.
--- NOTE | 2019-02-03 07:48 | NUR ---
DR. NAYLOR ON UNIT TO ASSESS PATIENT.
[2019-02-03 07:58] VITALS: BP 104/60; BP 106/67
--- NOTE | 2019-02-03 07:59 | NUR ---
ON UNIT TO SEE PT AT THIS TIME, UPDATE GIVEN.
[2019-02-03] MEDS ORDERED: DULOXETINE HCL60 MG PO (08:34)
[2019-02-03] MEDS ORDERED: NEUDEXT PO (08:34)
[2019-02-03] MEDS ORDERED: MEMANTINE HCL10 MG PO (08:34)
[2019-02-03] MEDS ORDERED: EXELON13.3 MG/21 T (08:34)
--- NOTE | 2019-02-03 08:44 | NUR ---
Treatment Plan meeting with Dr. Kim, RN, AT, SW and Clean Up Helper Banquet. Plan for discharge today if PASRR returns. Precert remains ok if discharged today.
--- NOTE | 2019-02-03 08:46 | NUR ---
UPDATED RE: MANUAL BP 104/60 HR 68. STATES TO HOLD ATENOLOL. OK TO GIVE PROSCAR AND LASIX. ALSO MADE AWARE LYRICA ORDER DUE TO TODAY.
--- NOTE | 2019-02-03 09:09 | NUR ---
Phoned [facility] and [facility] to check status of pt's PASRR. It is ready for review. Informed both Luz Maria at [facility] and Alison at [facility] that pt will lose his insurance auth for SNF if PAS determination is not received early today. Await return call.
--- NOTE | 2019-02-03 11:14 | NUR ---
RECIEVED A CALL FROM MARILYN WHO STATES THAT PT LAST COVERED DAY WAS 02/02 AND PT STAY HAS BEEN DENIED FROM 02/03 ON. MESSAGE LEFT FOR [facility]. WILL CONTINUE TO FOLLOW.
--- NOTE | 2019-02-03 11:30 | NUR ---
PT IS ALERT AND ORIENTED X4. MILD MEMORY GAPS NOTED AT TIMES. RESPS EASY AND EVEN ON ROOM AIR. PT REPORTS MOOD FEELING "KIND OF DEPRESSED" BECAUSE HE HAS NOT YET BEEN DISCHARGED FROM THE UNIT. BLUNTED AFFECT. SPEECH IS WNL AND COHERENT, ABLE TO MAKE NEEDS KNOWN WITHOUT DIFFICULTY. PT DENIES SI/HI, INTENT OR PLAN. PT DENIES HALLUCINATIONS, NO RESPONSE TO INTERNAL STIMULI NOTED. NO PARANOIA OR DELUSIONS NOTED. PT IS CALM AND COOPERATIVE. LOOKING FORWARD TO BEING DISCHARGED SOON POSSIBLE. MEDICATION COMPLIANT WITHOUT DIFFICULTY. NO INAPPROPRIATE OUTBURSTS THIS SHIFT. NO AGGRESSIVE BEHAVIORS.
--- NOTE | 2019-02-03 11:41 | NUR ---
AM GROUP/DISCUSSION PT ATTENDED MORNING GROUP THERAPY AND PARTICIPATED BY ENGAGING IN DISCUSSION WITH THIS DECORATIVE ENGRAVER APPRENTICE AND PEER. PT IS MILDLY DEPRESSED AT NOT BEING DISCHARGED YET BUT OTHERWISE, EXHIBITED NO AGITATION OR CRYING UNWARENTED. PT WILL CONTINUE TO ATTEND AND PARTICIPATE IN FUTURE GROUPS
--- NOTE | 2019-02-03 13:43 | NUR ---
DR. NAYLOR NOTIFIED OF PATIENT BEING DISCHARGED TODAY. DR. LEVINE AWARE OF DISCHARGE.
--- NOTE | 2019-02-03 13:50 | NUR ---
WILLIAMS returns. Pt.is able to enter Nursing Facility. Notified Patient and [facility]. Nursing staff on the [facility] and Wash Rack Operator Pretty.
--- NOTE | 2019-02-03 13:53 | NUR ---
Pt's PASRR determination has been received. Pt will discharge today. Pt is very pleased with this news. Pt stated that he has been in the hospital too long, and he is ready to move to the SNF.
--- NOTE | 2019-02-03 13:54 | NUR ---
Patient is discharging today to [facility]. Follow-up will be with Dr Kim, visiting psychiatrist. While at [facility], pt's mood improved and his anxiety decreased. Pt was pleasant with staff and peers. He participated in programming.
[2019-02-03] MEDS ORDERED: COUMADIN2 M1 PO (14:09)
--- NOTE | 2019-02-03 14:13 | NUR ---
Transportation arranged with [facility] to transport with pecan picker time 3:30 p.m.
--- NOTE | 2019-02-03 14:38 | NUR ---
Discharge Paperwork Faxed to [facility].
--- NOTE | 2019-02-03 14:51 | NUR ---
NURSE TO NURSE REPORT GIVEN TO KLAUDIA AT [facility].
--- NOTE | 2019-02-03 15:35 | NUR ---
PT DISCHARGED AT THIS TIME TO [facility] STRETCHER WITH 2 CLINICAL DATA PROGRAMMER. DISCHARGE INSTRUCTIONS REVIEWED WITH PT PRIOR TO DISCHAGE. DISCHARGE PACKET PROVIDED FOR FACILITY. ALL PERSONAL BELONGINGS WERE SENT WITH THE PT. PT LEFT THE UNIT IN STABLE CONDITION AT 1535 WITH CREDIT CONTROL ASSISTANT PRESENT.
--- NOTE | 2019-02-03 15:47 | NUR ---
PM GROUP/LEISURE INTERESTS PT DID NOT ATTEND AFTERNOON GROUP THERAPY. PT WAS AWAITING DISCHARGE FROM THE UNIT.
--- NOTE | 2019-02-04 07:44 | NUR ---
PHYSICAL THERAPY CO-SIGN I approve of the Physical Therapy notes written above. MEGHNA MCCRARY PT,DPT
--- NOTE | 2019-02-04 13:26 | NUR ---
OCCUPATIONAL THERAPY CO-SIGN I approve of the Occupational Therapy notes written above. ANÍBAL CHOW OTR/José Miguel
== END 2019-02-03 15:35 | disposition other institution (70) | DRG 56 ==
LOC: 3N 18:09
PROVIDERS: Internal Medicine; ADMIT Psychiatry & Neurology Psychiatry
DX: G30.9 Alzheimer's disease, unspecified (principal); E43 Unspecified severe protein-calorie malnutrition; F33.2 Major depressive disorder, recurrent severe without psychotic features; I50.32 Chronic diastolic (congestive) heart failure; F02.81 Dementia in other diseases classified elsewhere, unspecified severity, with behavioral disturbance; I13.0 Hypertensive heart and chronic kidney disease with heart failure and stage 1 through stage 4 chronic kidney disease, or unspecified chronic kidney disease; D68.69 Other thrombophilia; I48.0 Paroxysmal atrial fibrillation; N18.3 Chronic kidney disease, stage 3 (moderate); E11.22 Type 2 diabetes mellitus with diabetic chronic kidney disease; Z96.659 Presence of unspecified artificial knee joint; D64.9 Anemia, unspecified; F41.9 Anxiety disorder, unspecified; F48.2 Pseudobulbar affect; N40.0 Benign prostatic hyperplasia without lower urinary tract symptoms; E78.5 Hyperlipidemia, unspecified; K21.9 Gastro-esophageal reflux disease without esophagitis; E11.40 Type 2 diabetes mellitus with diabetic neuropathy, unspecified; E03.9 Hypothyroidism, unspecified; E11.65 Type 2 diabetes mellitus with hyperglycemia; Z79.4 Long term (current) use of insulin; Z79.01 Long term (current) use of anticoagulants; Z88.2 Allergy status to sulfonamides; Z88.8 Allergy status to other drugs, medicaments and biological substances; Z81.1 Family history of alcohol abuse and dependence; Z82.0 Family history of epilepsy and other diseases of the nervous system; Z79.899 Other long term (current) drug therapy; Z68.37 Body mass index [BMI] 37.0-37.9, adult

== ENCOUNTER 2019-02-26 17:31 | Emergency (ER) | payer MEDICARE ==
[~2019-02-26] VITALS: Wt 113.4 kg
[~2019-02-26 17:31] MED LIST changes: +ACETAMINOPHEN500 M4 PO; +ATENOLOL25 MG PO; +COUMADIN2 M1 PO; +DULOXETINE HCL60 MG PO; +MEMANTINE HCL10 MG PO; +MILK OF MA400 MG/5 M PO; +NAMENDA10 MG PO; +RIVASTIGMINE TAR6 M1 PO; +ROZEREM8 MG PO; +SYNTHROID25 MCG PO; +TOUJEO MAX300 UNIT/1 SQ; +TRAD5TAB1 PO
[2019-02-26 19:42] VITALS: BP 123/79
== END 2019-02-26 20:40 | disposition home or self-care (01) ==
LOC: ED 17:31
DX: S93.402A Sprain of unspecified ligament of left ankle, initial encounter (principal); Z79.899 Other long term (current) drug therapy; Z88.2 Allergy status to sulfonamides; Z88.8 Allergy status to other drugs, medicaments and biological substances; W18.39XA Other fall on same level, initial encounter; Y93.89 Activity, other specified; Y92.238 Other place in hospital as the place of occurrence of the external cause; Y99.8 Other external cause status

== ENCOUNTER 2019-05-09 13:53 | Inpatient (IN) | payer MEDICARE ==
[~2019-05-09] VITALS: Ht 182.8 cm; Wt 114.0 kg
[2019-05-09] VITALS (8 sets, daily range): BP systolic 58–95; BP diastolic 0–48
--- NOTE | 2019-05-09 14:05 | NUR ---
LASIX NOT GIVEN DUE TO LOW BLOOD PRESSURE, PER DR AVENDAÑO ORDER.
[2019-05-09 14:31] LABS: HEMATOCRIT 36.4 % (42.0-52.0); HEMOGLOBIN 10.7 g/dl (14.0-18.0); MEAN CELL VOLUME 80.4 fl (80.0-94.0); MEAN CORPUSCULAR HGB 23.6 pg (27.0-31.0); MEAN CORPUSCULAR HGB CONC 29.4 g/dl (33.0-37.0); MEAN PLATELET VOLUME 9.5 fl (9.6-12.3); NUCLEATED RED BLOOD CELL 0.1 % (0.0-0.0); PLATELET COUNT AUTOMATED 206 10*3/uL (130-400); RED BLOOD COUNT 4.53 10*6/uL (4.50-5.90); RED CELL DISTRI WIDTH 19.2 % (0-14.5); VENOUS BLOOD GAS O2 SAT 51.4 % (40-85); VENOUS PH 7.123 (7.32-7.43); WHITE BLOOD COUNT 26.9 10*3/uL (4.8-10.8)
[2019-05-09 14:49] LABS: ALBUMIN 2.9 gm/dl (3.1-4.5); CREATININE 3.19 mg/dL (0.70-1.30); POTASSIUM 5.9 mmol/L (3.5-5.1); TOTAL PROTEIN 7.5 gm/dL (6.4-8.2)
[2019-05-09 14:52] LABS: TROPONIN I 0.105 ng/ml (<0.045)
--- NOTE | 2019-05-09 14:53 | NUR ---
CRITICAL LAB RESULTS REPORTED TO DR AVENDAÑO. ZANDRA JAY
[2019-05-09 14:56] LABS: ACT PARTIAL THROMBO TIME 80.5 SECONDS (20.0-32.1)
[2019-05-09 14:59] LABS: PLATELET SUFFICIENCY NORMAL (NORMAL); TOTAL CELLS COUNTED 100 #CELLS
[2019-05-09 15:00] LABS: POLYCHROMASIA SLIGHT
[2019-05-09 15:01] LABS: BURR CELLS FEW
--- NOTE | 2019-05-09 15:15 | NUR ---
SCAB NOTED TO RIGHT POST.
--- NOTE | 2019-05-09 15:50 | NUR ---
Time: 1549 A 88 year old MALE admitted to under services of DR. DRE VILLAREAL,JERRY. Pt. arrived via ambulance from ER. Chief complaint: RESPIRATORY FAILURE. LOGAN OROZCO
[2019-05-09] MEDS ORDERED: Ipratropium Brom3 ML INH (16:10)
[2019-05-09] MEDS ORDERED: TRULICITY0.75 MG/0. SC (16:11)
[2019-05-09] MEDS ORDERED: XANAX0.25 MG PO (16:12)
[2019-05-09] MEDS ORDERED: COUMADIN6 M2 PO (16:13)
[2019-05-09] MEDS ORDERED: LINZESS145 MC1 PO (16:16)
[2019-05-09] MEDS ORDERED: RISPERDAL1 M1 PO (16:17)
[2019-05-09] MEDS ORDERED: Mysoline50 MG PO (16:37)
--- NOTE | 2019-05-09 17:44 | NUR ---
SPOKE WITH DR ERICKSON REGARDING PT'S LABORED BREATHING AND TACHYPNEA. INQUIRED IF SHE WOULD LIKE TO ORDER ANY DIURETICS. STATES SHE WANTS TO WAIT ON CT RESULTS. ALSO MADE AWARE OF CRITICAL LACTIC ACID OF 8.4 AND TROPONIN OF 0.111.
--- NOTE | 2019-05-09 19:13 | NUR ---
DR ERICKSON MADE AWARE OF CT RESULTS. ORDER RECEIVED FOR NS@ 60 ML/HR X24 HOURS.
--- NOTE | 2019-05-09 19:30 | NUR ---
Set up suction in patients room. Pt orally suctioned for a small amount out of the back of the throat. Pt did try to cough for me. Pt remains on a 15L NRBM.
--- NOTE | 2019-05-09 22:40 | NUR ---
AFTER CALLING PATIENT TO UPDATE HER ON PATIENTS CONDITION WHICH IS UNCHANGED AT THE TIME PATIENTS STATED THAT HE DID NOT WANT A BIPAP BUT SHE WAS OK WITH THE LASIX AT THIS TIME.
--- NOTE | 2019-05-09 23:09 | NUR ---
PATIENT RIPPED GOWN AND IV OFF PATIENT WAS LYING IN BED WITH NONREBREATHER OFF HIS FACE NEW IV WAS INSERTED AND GOWN WAS REPLACED PATIENT REORIENTED TO PLACE AT THIS TIME.
[2019-05-10] VITALS: BP 143/53
--- NOTE | 2019-05-10 01:10 | NUR ---
16 F HARRIS CATH PLACED PER DOCTORS ORDER PATIENT HAD 300ML OF CLOUDY VANNA URINE PATIENT TOLERATED WELL.
[2019-05-10 05:15] LABS: HEMATOCRIT 34.2 % (42.0-52.0); HEMOGLOBIN 10.4 g/dl (14.0-18.0); MEAN CELL VOLUME 79.2 fl (80.0-94.0); MEAN CORPUSCULAR HGB 24.1 pg (27.0-31.0); MEAN CORPUSCULAR HGB CONC 30.4 g/dl (33.0-37.0); MEAN PLATELET VOLUME 8.9 fl (9.6-12.3); NUCLEATED RED BLOOD CELL 0.1 % (0.0-0.0); PLATELET COUNT AUTOMATED 181 10*3/uL (130-400); RED BLOOD COUNT 4.32 10*6/uL (4.50-5.90); RED CELL DISTRI WIDTH 19.8 % (0-14.5); WHITE BLOOD COUNT 18.4 10*3/uL (4.8-10.8)
[2019-05-10 05:30] LABS: CREATININE 3.85 mg/dL (0.70-1.30); POTASSIUM 5.3 mmol/L (3.5-5.1)
[2019-05-10 05:40] LABS: TOTAL CELLS COUNTED 100 #CELLS
[2019-05-10 05:41] LABS: BURR CELLS FEW; PLATELET SUFFICIENCY NORMAL (NORMAL)
--- NOTE | 2019-05-10 07:37 | NUR ---
PT INQUIRING ABOUT EATING, SPOKE WITH DR ERICKSON, STATES PT MAY HAVE REGULAR DIET.
[2019-05-10 08:00] VITALS: BP 138/69
--- NOTE | 2019-05-10 10:00 | NUR ---
PT RESTING IN BED, FAMILY AT BEDSIDE. RESPIRATIONS LESS LABORED FOLLOWING EARLIER MORPHINE.02 SAT 90-91% ON 12L HIGH FLOW NASAL CANNULA. WHEEZES AND RHONCHI THROUGHOUT.
[2019-05-10 12:00] VITALS: BP 118/63
--- NOTE | 2019-05-10 14:00 | NUR ---
PT RESTING IN BED MORE COMFORTABLY AT THIS TIME. HIGH FLOW CANNULA INTACT AT 12L. NO DISTRESS NOTED. AT BEDSIDE.
[2019-05-10 16:00] VITALS: BP 129/57; BP 133/69
[2019-05-10 20:00] VITALS: BP 146/84
[2019-05-11] VITALS: BP 144/66
--- NOTE | 2019-05-11 01:40 | NUR ---
PATIENT CONFUSED AT THIS TIME, YELLING OUT. PATIENT OBSERVED BY OTHER NURSE THAT PATIENT WAS GRABBING AT [place] STATING THAT HE NEEDED HIS DENTURES, PATIENT WAS ATTEMPTED TO BE REORIENTED BY SAID NURSE. PATIENT BECAME ANGRY ASKING FOR HIS . UPON ENTERING ROOM PATIENT WAS CONFUSED, ATTEMPTS TO REORIENT INFORMED HE WAS AT [facility]. PATIENT STATED "I'M GOING TO [facility]." REPOSTIIONED IN BED AND TURN FOOTBALL ON, PATIENT NOTED TO CALM DOWN FOR TV. WILL MONITOR.
--- NOTE | 2019-05-11 02:40 | NUR ---
PATIENT YELLED OUT, CONFUSED TRYING TO GET OUT OF BED WITH NC OUT. NC PUT BACK INTO PLACE, PATIENT REORIENTED AND REPOSITION TO LEFT SIDE UP IN BED. WAMR BLANKET APPLIED, PATIENT APPEARS TO BE MORE CALM. WILL MONITOR
--- NOTE | 2019-05-11 04:06 | NUR ---
24 HR chart check completed.
[2019-05-11 07:22] LABS: BASO % 0.1 % (0.0-1.0); EOS % 0.2 % (1.0-4.0); HEMOGLOBIN 9.4 g/dl (14.0-18.0); LYMPH # 0.8 10*3/uL (1.3-4.4); LYMPH % 5.3 % (27.0-41.0); MEAN CELL VOLUME 78.1 fl (80.0-94.0); MEAN CORPUSCULAR HGB 23.7 pg (27.0-31.0); MEAN CORPUSCULAR HGB CONC 30.3 g/dl (33.0-37.0); MEAN PLATELET VOLUME 9.8 fl (9.6-12.3); MONO # 0.9 10*3/uL (0.1-1.0); MONO % 5.5 % (3.0-9.0); NEUT # 13.5 10*3/uL (2.3-7.9); NEUT % 87.4 % (47.0-73.0); NUCLEATED RED BLOOD CELL 0.3 % (0.0-0.0); PLATELET COUNT AUTOMATED 149 10*3/uL (130-400); RED BLOOD COUNT 3.97 10*6/uL (4.50-5.90); RED CELL DISTRI WIDTH 19.4 % (0-14.5); WHITE BLOOD COUNT 15.4 10*3/uL (4.8-10.8)
[2019-05-11 07:54] LABS: CREATININE 3.38 mg/dL (0.70-1.30); INTERNATIONAL NORM RATIO 2.3 (2.0-3.5); POTASSIUM 4.7 mmol/L (3.5-5.1); TOTAL PROTEIN 7.2 gm/dL (6.4-8.2)
[2019-05-11 07:55] LABS: ALBUMIN 2.4 gm/dl (3.1-4.5)
[2019-05-11 08:00] VITALS: BP 151/75
--- NOTE | 2019-05-11 09:00 | NUR ---
IN TO SEE PT
--- NOTE | 2019-05-11 10:30 | NUR ---
Service Mechanic in to see patient. He is a LTC resident at [facility] and plans to return there upon discharge. His is at his bedside. He ambulates with a walker or gets around in a wheelchair. category planner following.
[2019-05-11 10:48] LABS: ABG HCO3 13.4 mmol/l (22-26); ABG O2 SATURATION 97.4 % (95-97); ARTERIAL BLOOD GAS PCO2 24.8 mmHg (35-45); ARTERIAL BLOOD GAS PH 7.349 (7.35-7.45)
[2019-05-11 10:49] LABS: ABG BASE EXCESS -10.8 mmol/L (-2.0-2.0)
--- NOTE | 2019-05-11 10:55 | NUR ---
DR. DOWELL MADE AWARE OF CONSULT. WILL BE IN TO SEE PT
[2019-05-11 12:00] VITALS: BP 150/72
--- NOTE | 2019-05-11 14:20 | NUR ---
PT EXTREMELY AGITATED AT THIS TIME. PT READJUSTED IN BED. PULSE OX 97%. RESPIRATIONS LABORED. DR ERICKSON AWARE. AT BEDSIDE. WILL MONITOR.
--- NOTE | 2019-05-11 14:37 | NUR ---
DR. ERICKSON NOTIFIED OF HR 170'S. ORDERED PO METOPROLOL. WILL MONITOR.
--- NOTE | 2019-05-11 14:48 | NUR ---
DR. ERICKSON ORDERED TO CONTINUE WARFARIN.
--- NOTE | 2019-05-11 15:45 | NUR ---
PT PULSE SLOWED DOWN TO 70 BEATS PER MINUTE
[2019-05-11 16:00] VITALS: BP 151/92
--- NOTE | 2019-05-11 16:00 | NUR ---
PT CALM AT THIS TIME. FAMILY AT BEDSIDE
--- NOTE | 2019-05-11 16:55 | NUR ---
Nursing screen received and chart reviewed. 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 At this time, patient will return to LTC after medical management. If patient should have a decline in ADLs then refer to OT. Thank you. Destiney Dias OTR/l
[2019-05-11 20:00] VITALS: BP 141/83
[2019-05-12] VITALS: BP 149/88
[2019-05-12 00:56] LABS: URINE CREATININE RANDOM 44.9 mg/dL
[2019-05-12 01:14] LABS: BILIRUBIN NEGATIVE (NEGATIVE); BLOOD 3+ (NEGATIVE); CLARITY SL CLOUDY (CLEAR); COLOR YELLOW (YELLOW); GLUCOSE 3+ (NEGATIVE); KETONE NEGATIVE (NEGATIVE); LEUKO ESTERASE NEGATIVE (NEGATIVE); NITRITE NEGATIVE (NEGATIVE); PH 5.5 (5.0-9.0); UROBILINOGEN 0.2 E.U./dl (0.2-1.0)
[2019-05-12 01:48] LABS: YEAST 4+
[2019-05-12 01:49] LABS: RBC 21-30 rbc/hpf (0-2)
--- NOTE | 2019-05-12 05:08 | NUR ---
24 HR chart check completed.
--- NOTE | 2019-05-12 06:10 | NUR ---
JUANITA RODRÍGUEZ [id number] Please refer to the physician's history and physical for past medical history, comorbid conditions, and allergies. Diagnosis: ACUTE RESPIRATORY FAILURE SEPSIS Weston Score: 12,HIGH RISK WOUND DESCRIPTIONS: Wound Number: 1 Location of the wound: left buttocks Type of wound: stage 2 Thickness: Partial Size: 2.3cm x 2.5cm x 0.1cm Tunneling: none Undermining: none Sinus Tract: none Presence of Exudate: Serosanguineous Amount: Light Color: Red Odor: None Periwound Skin Appearance: Normal Wound edges: approximated Pain (associated with wound): none at time of assessment How does patient state this happened? pt unable to state how this happened Surface the patient is resting on: Position Pro SKIN PREVENTION RECOMMENDATION: 1. Pressure redistribution support surface as appropriate 2. Elevate heels 3. Remove boots/TEDS every shift and reapply 4. Head of bed 30 degrees as tolerated 5. Assess nutrition and hydration 6. Manage moisture 7. Avoid the use of containment devices while in bed 8. Use absorptive products on surfaces limit layers of linens on bed 9. Turn and reposition every 1-2 hours in bed and every 1 hour in chair as tolerated 10. Weight shifts every 15 minutes while up in chair 11. Offloading with pillows or device to keep heels elevated off bed 12. Monitor skin at least every shift 13. Inspect under medical devices twice a day WOUND TREATMENT RECOMMENDATIONS: Stage 2 guidelines: Cleanse left buttocks with nss and apply sureprep around the wound hydrogel to wound bed and cover with optifoam gentle. Wheelchair cushion when oob.
[2019-05-12 06:47] LABS: HEMOGLOBIN 9.5 g/dl (14.0-18.0); MEAN CELL VOLUME 77.5 fl (80.0-94.0); MEAN CORPUSCULAR HGB 23.8 pg (27.0-31.0); MEAN CORPUSCULAR HGB CONC 30.6 g/dl (33.0-37.0); MEAN PLATELET VOLUME 10.3 fl (9.6-12.3); NUCLEATED RED BLOOD CELL 0.1 10*3/uL (0.0-0.0); NUCLEATED RED BLOOD CELL 0.6 % (0.0-0.0); PLATELET COUNT AUTOMATED 153 10*3/uL (130-400); RED CELL DISTRI WIDTH 19.1 % (0-14.5)
[2019-05-12 06:52] LABS: INTERNATIONAL NORM RATIO 1.8 (2.0-3.5)
[2019-05-12 07:28] LABS: POTASSIUM 5.3 mmol/L (3.5-5.1)
[2019-05-12 07:37] LABS: CREATININE 2.58 mg/dL (0.70-1.30); PHOSPHOROUS 3.8 mg/dL (2.5-4.9)
[2019-05-12 08:00] VITALS: BP 130/84
[2019-05-12 08:15] LABS: TOTAL CELLS COUNTED 100 #CELLS
[2019-05-12 08:16] LABS: BURR CELLS FEW; MICROCYTOSIS SLIGHT; PLATELET SUFFICIENCY NORMAL (NORMAL); POLYCHROMASIA SLIGHT; SCHISTOCYTES FEW; TARGET CELLS FEW
--- NOTE | 2019-05-12 10:30 | NUR ---
Welfare Interviewer in to see patient. No new needs or request at this time. When medically stable he will be discharged to [facility] where he is a LTC resident. turnaround planner following. Per multidisciplinary discharge planning meeting treating pneumonia, Dr. Velázquez and Dr. Ocampo are following.
[2019-05-12 12:00] VITALS: BP 142/88
[2019-05-12 16:00] VITALS: BP 146/82
[2019-05-12 20:00] VITALS: BP 171/91
--- NOTE | 2019-05-13 04:33 | NUR ---
Upon discharge recommend patient to follow up for wound care in outpatient setting continue current wound care orders at discharging facility.
--- NOTE | 2019-05-13 05:00 | NUR ---
24 HR chart check completed.
[2019-05-13 06:58] LABS: HEMATOCRIT 33.5 % (42.0-52.0); HEMOGLOBIN 10.2 g/dl (14.0-18.0); MEAN CELL VOLUME 76.8 fl (80.0-94.0); MEAN CORPUSCULAR HGB 23.4 pg (27.0-31.0); MEAN CORPUSCULAR HGB CONC 30.4 g/dl (33.0-37.0); MEAN PLATELET VOLUME 10.1 fl (9.6-12.3); NUCLEATED RED BLOOD CELL 0.1 10*3/uL (0.0-0.0); NUCLEATED RED BLOOD CELL 1.3 % (0.0-0.0); PLATELET COUNT AUTOMATED 170 10*3/uL (130-400); RED BLOOD COUNT 4.36 10*6/uL (4.50-5.90); RED CELL DISTRI WIDTH 19.1 % (0-14.5); WHITE BLOOD COUNT 8.8 10*3/uL (4.8-10.8)
[2019-05-13 07:10] LABS: ALBUMIN 2.4 gm/dl (3.1-4.5); CREATININE 2.39 mg/dL (0.70-1.30); POTASSIUM 4.6 mmol/L (3.5-5.1); TOTAL PROTEIN 7.5 gm/dL (6.4-8.2)
--- NOTE | 2019-05-13 07:27 | NUR ---
DR ERICKSON AWARE OF BS 522.
[2019-05-13 07:28] LABS: INTERNATIONAL NORM RATIO 2.7 (2.0-3.5)
--- NOTE | 2019-05-13 07:40 | NUR ---
PT SITTING UP IN RECLINER CHAIR. RESP-EASY AND REGULAR AT THIS TIME. NO C/O AT THIS TIME. DR. ERICKSON WAS IN TO SEE PT. AWARE BSG. CALL LIGHT IN REACH. BODY ALARM ON PT. SEE SHIFT ASSESSMENT.
[2019-05-13 08:00] VITALS: BP 158/86
[2019-05-13 08:26] LABS: OVALOCYTES MODERATE; PLATELET SUFFICIENCY NORMAL (NORMAL); POLYCHROMASIA SLIGHT; TOTAL CELLS COUNTED 100 #CELLS
[2019-05-13 10:05] LABS: ABG HCO3 13.3 mmol/l (22-26); ABG O2 SATURATION 95.6 % (95-97); ARTERIAL BLOOD GAS PCO2 24.8 mmHg (35-45); ARTERIAL BLOOD GAS PH 7.348 (7.35-7.45); ARTERIAL BLOOD GAS PO2 77.8 mmHg (80-90)
[2019-05-13 10:06] LABS: ABG BASE EXCESS -10.8 mmol/L (-2.0-2.0)
--- NOTE | 2019-05-13 11:00 | NUR ---
Account Services Specialist in to see patient. No new needs or request at this time. When medically stable he will be discharged to [facility] where he is a LTC resident. material planner following. Per multidisciplinary discharge planning meeting treating pneumonia with Levaquin, Zosyn, and Vancomycin. Dr. Velázquez and Dr. Ocampo are following. Patient is for a renal ultrasound today.
[2019-05-13 12:00] VITALS: BP 146/78
--- NOTE | 2019-05-13 12:00 | NUR ---
PT SITTING UP IN RECLINER CHAIR. BODY ALARM ON. TOLERATED ROUTINE MED WITH NO PROBLEM. CALL LIGHT IN REACH.
--- NOTE | 2019-05-13 12:49 | NUR ---
AT HIS SIDE.
--- NOTE | 2019-05-13 13:35 | NUR ---
Patient updated clinicals faxed to [facility] for review. Patient is jail care and ok to return when medically stable for discharge,.
[2019-05-13 16:00] VITALS: BP 143/84
--- NOTE | 2019-05-13 16:00 | NUR ---
SITTING UP IN RECLINER CHAIR. RESP-EASY AND REGULAR. IVF INFUSING WITH NO PROBLEM. NO C/O AT THIS TIME. CALL LIGHT IN REACH. SEE SHIFT ASSESSMENT.
--- NOTE | 2019-05-13 17:08 | NUR ---
PT TOLERATED ROUTINE MED AT HIS SIDE. CALL LIGHT INREACH.
--- NOTE | 2019-05-13 19:30 | NUR ---
CALLED DR. MEJIA MADE AWARE PT BSG-589, ORDERS 15 UNTIS IV INSULIN AND SLIDING SCALE Q4HRS.
--- NOTE | 2019-05-13 19:39 | NUR ---
Neurological: AWAKE, ALERT, ORIENTED X3 Respiratory: ROOM AIR, NONLABORED Breath sounds: DIMINISHED T/O Cough: OCCASIONAL DRY Cardiovascular: IRREGULAR: HX. AFIB, DENIES CP/PRESSURE, NO EDEMA, PPP Gastrointestinal: NORMOACTIVE X4 QUADS, DENIES N/V/D/C, SOFT/NONTENDER/OBESE Genito/Urinary: HARRIS CATHETER: CLEAR STRAW URINE Musculoskeketal: MAX ASSIST, TRANSFER FROM CHAIR TO BED. PATIENT ASSISTED FROM RECLINING CHAIR TO BED. NO C/O OR S/S OF DISTRESS NOTED AT THIS TIME. FAMILY PRESENT AT BEDSIDE. BED IS LOW, LOCKED, ALARMED, AND CALL LIGHT IS WITHIN REACH. WILL CONTINUE TO MONITOR, SEE SHIFT ASSESSMENT. PETE BURNETT A
--- NOTE | 2019-05-13 19:57 | NUR ---
DR. MEJIA CONTACTED AT THIS TIME IN REGARDS TO PATIENT C/O INSOMNIA. XANAX REORDERED.
[2019-05-13 20:00] VITALS: BP 156/68
--- NOTE | 2019-05-13 22:35 | NUR ---
DR. MEJIA CONTACTED AT THIS TIME IN REGARDS TO STAT GLUCOSE OF 552. ORDERED TO GIVE 20 IV NOW AND PRN IF BSG>500.
[2019-05-14] VITALS: BP 141/76
[2019-05-14 07:44] LABS: ALBUMIN 2.2 gm/dl (3.1-4.5); CREATININE 2.04 mg/dL (0.70-1.30); POTASSIUM 3.7 mmol/L (3.5-5.1); TOTAL PROTEIN 6.4 gm/dL (6.4-8.2)
[2019-05-14 08:00] VITALS: BP 137/77
--- NOTE | 2019-05-14 08:15 | NUR ---
PT RESTING IN BED WITH EYES CLOSED. AWAKENS EASILY. RESP-EASY AND REGULAR. TOLERATED ROUTINE MED WITH NO PROBLEM. NO C/O AT THIS TIME. CALL LIGHT IN REACH. BED ALARM ON. SEE SHIFT ASSESSMENT.
--- NOTE | 2019-05-14 10:00 | NUR ---
Repack Room Worker in to see patient. No new needs or request at this time. When medically stable he will be discharged to [facility] where he is a LTC resident. automatic data processing planner following. Per multidisciplinary discharge planning meeting patient to be discharged to [facility] tomorrow.
--- NOTE | 2019-05-14 10:03 | NUR ---
DR. DOWELL CALLED REGARDING LABWORK. DECREASE IVF.
--- NOTE | 2019-05-14 10:10 | NUR ---
CALLED DR. ERICKSON AWARE OF BLOOD WORK. D/C COUMADIN.
--- NOTE | 2019-05-14 10:35 | NUR ---
BSG-221, SEE EMAR. ASSISTED UP TO RECLINER CHAIR WITH 2 MAX ASSIST. BODY ALARM ON. CALL LIGHT IN REACH.
[2019-05-14 12:00] VITALS: BP 135/72
--- NOTE | 2019-05-14 12:45 | NUR ---
PT ASSISTED BACK TO BED. AT HIS SIDE. CALL LIGHT IN REACH. BED ALARM ON.
--- NOTE | 2019-05-14 13:22 | NUR ---
MEDICATED WITH TYLENOL TWO TAB PO PER PRN ORDER, SEE EMAR. FOR C/O BUTTOCK PAIN AT THIS TIME. CALL LIGHT IN REACH. BED ALARM ON.
--- NOTE | 2019-05-14 13:30 | NUR ---
RESTING IN BED. BSG-209, SEE EMAR. C/O HIP/BUTTOCK PAIN. CALLED DR. ERICKSON FOR ORDERS.
[2019-05-14 16:00] VITALS: BP 147/74
--- NOTE | 2019-05-14 16:00 | NUR ---
PT RESTING IN BED. REPOSITIONED SELF TO SIDE. NO C/O AT THIS TIME. CALL LIGHT IN REACH. BSG-159, SEE EMAR. CALL LIGHT IN REACH. SEE SHIFT ASSESSMENT.
--- NOTE | 2019-05-14 18:45 | NUR ---
PT ASSISTED UP TO RECLINER CHAIR, AT HIS SIDE. RESP-EASY AND REGULAR. IVF INFUSING WITH NO PROBLEM. CALL LIGHT IN REACH.
[2019-05-14 20:00] VITALS: BP 137/63
--- NOTE | 2019-05-14 21:22 | NUR ---
PATIENT RIPPED IV OUT. NEW IV STARTED IN THE RAC. FLUIDS RESTARTED AT 60ML/HR
[2019-05-15] VITALS: BP 148/84
--- NOTE | 2019-05-15 00:40 | NUR ---
PATIENT LAYING IN BED. PATIENT TEARFUL AT TIMES ASKING FOR . A&OX4 BUT FORGETFUL. IV FLUID INFUSING ORDERED TO RIGHT AC THAT IS WRAPPED. BED LOCKED IN LOWEST POSITION. BED ALARM ON FOR SAFETY. CALL LIGHT WITHIN REACH. RESPIRATIONS LABORED AT THIS TIME DUE TO PATIENT TRYING TO GET OUT OF BED. PATIENT RE-ORIENTED AND REPOSITIONED IN BED.
--- NOTE | 2019-05-15 01:35 | NUR ---
24 HR chart check completed.
--- NOTE | 2019-05-15 02:02 | NUR ---
PATIENT REPOSITIONED IN BED BECAUSE HE HAD HIS LEGS OVER THE RAILING. PATIENT STATED HE HAD TO PEE. EXPLAINED HE HAD A HARRIS CATHETER IN PLACE. PATIENT STATED HE NEEDED TO HAVE A BOWEL MOVEMENT. PATIENT PLACED ON BEDPAN BUT DID NOT GO. BED ALARM ON. CALL LIGHT WITHIN REACH. PATIENT YELLING OUT FOR FAMILY MEMBERS. EXPLAINED TO PATIENT THAT IT WAS EARLY IN THE MORNING AND THAT HIS FAMILY WAS AT HOME SLEEPING.
--- NOTE | 2019-05-15 03:56 | NUR ---
NASAL CANNULA PUT BACK IN PATIENT'S NOSE. WARM BLANKETS PROVIDED. BED ALARM ON FOR SAFETY.
[2019-05-15 05:20] LABS: BASO % 0.2 % (0.0-1.0); EOS # 0.1 10*3/uL (0.0-0.4); HEMATOCRIT 34.3 % (42.0-52.0); HEMOGLOBIN 10.7 g/dl (14.0-18.0); LYMPH # 1.3 10*3/uL (1.3-4.4); LYMPH % 12.4 % (27.0-41.0); MEAN CELL VOLUME 75.1 fl (80.0-94.0); MEAN CORPUSCULAR HGB 23.4 pg (27.0-31.0); MEAN CORPUSCULAR HGB CONC 31.2 g/dl (33.0-37.0); MEAN PLATELET VOLUME 10.1 fl (9.6-12.3); MONO % 8.8 % (3.0-9.0); NEUT # 8.2 10*3/uL (2.3-7.9); NEUT % 75.6 % (47.0-73.0); NUCLEATED RED BLOOD CELL 0.1 10*3/uL (0.0-0.0); NUCLEATED RED BLOOD CELL 1.2 % (0.0-0.0); PLATELET COUNT AUTOMATED 186 10*3/uL (130-400); RED BLOOD COUNT 4.57 10*6/uL (4.50-5.90); RED CELL DISTRI WIDTH 18.3 % (0-14.5); WHITE BLOOD COUNT 10.8 10*3/uL (4.8-10.8)
[2019-05-15 06:18] LABS: CREATININE 1.84 mg/dL (0.70-1.30); POTASSIUM 3.5 mmol/L (3.5-5.1)
[2019-05-15 06:41] LABS: MICROCYTOSIS SLIGHT; PLATELET SUFFICIENCY NORMAL (NORMAL); SCHISTOCYTES FEW; TARGET CELLS FEW; TOTAL CELLS COUNTED 100 #CELLS
[2019-05-15 06:42] LABS: POLYCHROMASIA SLIGHT
--- NOTE | 2019-05-15 07:29 | NUR ---
Updated clinicals faxed to Giovana at [facility] for review. patient is group home care and can return when medically stable for discharge.
[2019-05-15 08:00] VITALS: BP 115/78
--- NOTE | 2019-05-15 08:15 | NUR ---
PATIENT ASSESSMENT COMPLETED AT THIS TIME WITHOUT INCIDENT. AT BEDSIDE ORDERS RECEIVED TO DISCONTINUE IV FLUIDS AND REMOVE HARRIS CATHETER AND TO ADMINISTE 40O FIV LASIX NOW. SEE EMAR AND NOTES. MEDICATIONS GIVEN ORALLY WITHOUT INCIDENT, PATIENT REORIENTED TO PLACE, TIME AND CALL LIGHT USE. PATIENT CALLING OUT CONTINUOUSLY, REPOSITIONED IN BED, BRIEF CHANGED DUE TO WETNESS. CALL LIGHT WITHIN REACH WILL CONTINUE TO MONITOR.
--- NOTE | 2019-05-15 09:00 | NUR ---
Satellite Tv Technician in to see patient. No new needs or request at this time. When medically stable he will be discharged to [facility] where he is a LTC resident. Per multidisciplinary discharge planning meeting he patient with sudden onset of acute respiratory distress syndrome this morning, possibly from volume overload and congestive heart failure, diastolic. The patient is given one dose of diuretics and one dose of Lasix IV 40 and discontinued IV fluids. land planner following.
--- NOTE | 2019-05-15 09:47 | NUR ---
24 HOUR CHART CHECK COMPLETED
--- NOTE | 2019-05-15 10:20 | NUR ---
PATIENT OUT OF BED TO RECLINER WITH MAX ASSIST OF THREE, PATIENT DID NOT BEAR WEIGHT ON HIS OWN. TAB ALARM IN PLACE, CALL LIGHT WITHIN REACH. WILL CONTINUE TO MONITOR.
[2019-05-15 12:00] VITALS: BP 137/68
--- NOTE | 2019-05-15 15:03 | NUR ---
Nutritional Support Services Note: Wound to left buttocks noted. Ht.6' Wt.251#. Appetite is good for meals, he is eating 100% of all meals. Continue to encourage good intake of meals. Will follow as needed. No nutrition needed at this time. Hanna Terry Rdn Ld
[2019-05-15 16:00] VITALS: BP 135/64
[2019-05-15 20:00] VITALS: BP 115/82
[2019-05-16] VITALS: BP 111/78
--- NOTE | 2019-05-16 06:30 | NUR ---
PATIENT RIPPED IV OUT. NEW ONE PLACED IN RARM ON FIRST ATTEMPT. ZOSYN RUNNING.
[2019-05-16 07:18] LABS: BASO % 0.1 % (0.0-1.0); EOS # 0.4 10*3/uL (0.0-0.4); EOS % 3.3 % (1.0-4.0); HEMATOCRIT 34.8 % (42.0-52.0); HEMOGLOBIN 10.8 g/dl (14.0-18.0); LYMPH # 1.5 10*3/uL (1.3-4.4); LYMPH % 13.2 % (27.0-41.0); MEAN CELL VOLUME 75.7 fl (80.0-94.0); MEAN CORPUSCULAR HGB 23.5 pg (27.0-31.0); MEAN PLATELET VOLUME 10.2 fl (9.6-12.3); MONO # 0.6 10*3/uL (0.1-1.0); MONO % 5.5 % (3.0-9.0); NEUT # 8.6 10*3/uL (2.3-7.9); NUCLEATED RED BLOOD CELL 0.1 10*3/uL (0.0-0.0); NUCLEATED RED BLOOD CELL 0.7 % (0.0-0.0); PLATELET COUNT AUTOMATED 188 10*3/uL (130-400); RED CELL DISTRI WIDTH 18.7 % (0-14.5); WHITE BLOOD COUNT 11.3 10*3/uL (4.8-10.8)
[2019-05-16 07:36] LABS: CREATININE 1.84 mg/dL (0.70-1.30); POTASSIUM 3.1 mmol/L (3.5-5.1)
[2019-05-16 07:53] LABS: INTERNATIONAL NORM RATIO 3.4 (2.0-3.5)
[2019-05-16 08:00] VITALS: BP 131/56
[2019-05-16 12:00] VITALS: BP 130/54
[2019-05-16 16:00] VITALS: BP 132/52
--- NOTE | 2019-05-16 19:30 | NUR ---
24 HOUR CHART CHECK COMPLETED
[2019-05-16 20:00] VITALS: BP 135/56
--- NOTE | 2019-05-16 20:10 | NUR ---
PATIENT ASSESSMENT COMPLETED AT THIS TIME WITHOUT INCIDENT. PATIENT ALERT AND ORIENTED WITH PERIODS OF CONFUSION, BED ALARM ON AND FUNCTIONAL. MEDICATIONS GIVEN ORALLY WITHOUT INCIDENT. CALL LIGHT WITHIN REACH, WILL CONTINUE TO MONITOR.
[2019-05-17] VITALS: BP 140/70
--- NOTE | 2019-05-17 01:45 | NUR ---
PATIENT CALLING OUT AND UPON ENTERING THE ROOM PATIENT WAS FOUND TO BE PARTIALLY NUDE FROM THE WAIST DOWN AND URINATING ON HIMSELF,THE BED,AND FLOOR. UPON CLEANING THE PATIENT HE WAS NOTED TO HAVE A WOUND TO HIS RIGHT SCROTUM AREA. AFTER OBTAINING CONSENT PHOTOS AND MEASUREMENTS WERE TAKEN AND DOCUMENTATION COMPLETED,SEE WOUND INTERVENTIONS.
--- NOTE | 2019-05-17 04:10 | NUR ---
DR. MEJIA CONTACTED AT THIS TIME DUE TO PATIENT COMPLAINING OF ABDOMINAL/CHEST PAIN AND REQUESTING ROLAIDS OR TUMS. ORDERS RECEIVED, SEE EMAR. ALSO ADVISED DR. MEJIA OF NEW WOUND ON RIGHT SCROTUM, ORDERS RECEIVED, SEE EMAR. ORDERS TO CONSULT CARDIOLOGY IF PATIENT CONTINUES TO COMPLAIN OF CHEST PAIN AFTER ADMINISTRATION OF TUMS.
--- NOTE | 2019-05-17 06:20 | NUR ---
PATIENT CALLING OUT AGAIN AND UPON ENTERING THE ROOM PATIENT WAS FOUND TO BE NAKED AND HAD THROWN THE COVERS ONTO THE FLOOR, HE REFUSED TO ALLOW STAFF TO PLACE A GOWN OR SHEET OVER HIM AND WAS STRIKING OUT AT STAFF AND MAKING RUDE AND INAPPROPRIATE COMMENTS.
[2019-05-17 08:00] VITALS: BP 145/73
--- NOTE | 2019-05-17 11:10 | NUR ---
PT MEDICATED WITH ONE TIME DOSE OF DILAUDID FOR C/O RIGHT UPPER QUAD PAIN. PT YELLING OUT ABOUT PAIN. DR. STEWART NOTIFIED OF STAT CONSULT. PT DRINKING READICAT FOR STAT CT ABDOMEN.
--- NOTE | 2019-05-17 11:44 | NUR ---
PRN DILAUDID EFFECTIVE. PT NO LONGER YELLING OUT AND APPEARS COMFORTABLE.
[2019-05-17 12:00] VITALS: BP 155/77
--- NOTE | 2019-05-17 13:22 | NUR ---
CT NOTIFIED THAT PATIENT HAS DRANK ALL PREP FOR CT OF THE ABDOMEN.
[2019-05-17 16:00] VITALS: BP 165/99
--- NOTE | 2019-05-17 17:51 | NUR ---
SPOKE WITH PATIENT'S AND SHE IS UNSURE IF SHE WANTS HIM TO HAVE BRONCHOSCOPY PROCEDURE DONE IN THE MORNING, 05/18/19. SHE WISHES TO REEVALUATE HOW HE FEELS IN THE MORNING. CONSENT REMAINS UNSIGNED.
[2019-05-17 20:00] VITALS: BP 125/40
--- NOTE | 2019-05-17 20:58 | NUR ---
Patient resting quietly with no c/o discomfort. Respirations easy and regular. Vital signs stable. No overt distress. JOSE CRUZ MORENO
--- NOTE | 2019-05-17 22:50 | NUR ---
24 HR chart check completed.
--- NOTE | 2019-05-17 22:51 | NUR ---
24HR CHART CHECK COMPLETED.
--- NOTE | 2019-05-17 23:50 | NUR ---
WAS UPDATED ON THIS MORNINGS POTASSIUM LEVEL. HE WAS ALSO NOTIFIED THAT AM NURSE HAD HELD SCHEDULED DOSE OF POTASSIUM. NEW ORDERS RECEIVED.
--- NOTE | 2019-05-17 23:55 | NUR ---
Patient coughs when drinking water. Did not choke on applesauce. Patient says that he always chokes on water.
[2019-05-18] VITALS (9 sets, daily range): BP systolic 127–155; BP diastolic 66–92
--- NOTE | 2019-05-18 02:41 | NUR ---
Pulse ox 91%. 2L nasal cannula applied.
[2019-05-18 06:08] LABS: BASO % 0.2 % (0.0-1.0); EOS # 0.4 10*3/uL (0.0-0.4); EOS % 2.3 % (1.0-4.0); HEMATOCRIT 33.2 % (42.0-52.0); HEMOGLOBIN 10.2 g/dl (14.0-18.0); LYMPH # 1.3 10*3/uL (1.3-4.4); LYMPH % 8.9 % (27.0-41.0); MEAN CELL VOLUME 76.7 fl (80.0-94.0); MEAN CORPUSCULAR HGB 23.6 pg (27.0-31.0); MEAN CORPUSCULAR HGB CONC 30.7 g/dl (33.0-37.0); MEAN PLATELET VOLUME 9.9 fl (9.6-12.3); MONO # 1.4 10*3/uL (0.1-1.0); NEUT # 11.9 10*3/uL (2.3-7.9); PLATELET COUNT AUTOMATED 212 10*3/uL (130-400); RED BLOOD COUNT 4.33 10*6/uL (4.50-5.90); RED CELL DISTRI WIDTH 18.5 % (0-14.5)
[2019-05-18 06:24] LABS: CREATININE 1.7 mg/dL (0.70-1.30); POTASSIUM 3.6 mmol/L (3.5-5.1)
--- NOTE | 2019-05-18 08:08 | NUR ---
CONCERNED PT NEEDS SPEECH EVAL FOR DYSPAGIA AND COUGHING/CHOKING ON THIN LIQUIDS PER NIGHT NURSE, CINTIA. SITUATION BROUGHT UP TO , SAID SHE WOULD ORDER SPEECH CONSULT AND TO KEEP PT NPO UNTIL SPEECH EVALS PT.
--- NOTE | 2019-05-18 08:30 | NUR ---
JUANITA RODRÍGUEZ [id number] Please refer to the physician's history and physical for past medical history, comorbid conditions, and allergies. Diagnosis: ACUTE RESPIRATORY FAILURE SEPSIS Weston Score: 11,HIGH RISK WOUND DESCRIPTIONS: Wound Number: 1 Location of the wound: abdominal fold and periarea Type of wound: fungal Thickness: Partial Size: 27.0cm x 54.5cm x 0.1cm Tunneling: none Undermining: none Sinus Tract: none Presence of Exudate: Serous Amount: Light Color: Red Odor: Musty Periwound Skin Appearance: Normal Wound edges: approximated Pain (associated with wound): very tender to touch How does patient state this happened? pt stated that this has been going on since he had surgery several years ago Wound Number: 2 Location of the wound: gluteal cleft Type of wound: rash Thickness: Partial Size: 25.0cm x 9.5cm x <0.1cm Tunneling: none Undermining: none Sinus Tract: none Presence of Exudate: none Amount: None Color: Red with white plaques Odor: None Periwound Skin Appearance: Normal Wound edges: approximated Pain (associated with wound): none at time of assessment How does patient state this happened? pt stated that he has been treated for fungal in the past and the ointment is not working Wound Number: 3 Location of the wound: left side near ribs Type of wound: rash Thickness: Partial Size: 3.5cm x 5.0cm x <0.1cm Tunneling: none Undermining: none Sinus Tract: none Presence of Exudate: none Amount: None Color: Red with white plaques Odor: None Periwound Skin Appearance: Normal Wound edges: approximated Pain (associated with wound): none at time of assessment How does patient state this happened? pt stated that he has been treated for fungal in the past and the ointment is not working Wound Number: 4 Location of the wound: midl back Type of wound: rash Thickness: Partial Size: 19.0cm x 33.0cm x <0.1cm Tunneling: none Undermining: none Sinus Tract: none Presence of Exudate: none Amount: None Color: Red with white plaques Odor: None Periwound Skin Appearance: Normal Wound edges: approximated Pain (associated with wound): none at time of assessment How does patient state this happened? pt stated that he has been treated for fungal in the past and the ointment is not working Wound Number: 5 Location of the wound: left upper back Type of wound: rash Thickness: Partial Size: 12.0cm x 9.0cm x <0.1cm Tunneling: none Undermining: none Sinus Tract: none Presence of Exudate: none Amount: None Color: Red with white plaques Odor: None Periwound Skin Appearance: Normal Wound edges: approximated Pain (associated with wound): none at time of assessment How does patient state this happened? pt stated that he has been treated for fungal in the past and the ointment is not working Wound Number: 6 Location of the wound: right upper back Type of wound: rash Thickness: Partial Size: 4.0cm x 3.5cm x <0.1cm Tunneling: none Undermining: none Sinus Tract: none Presence of Exudate: none Amount: None Color: Red with white plaques Odor: None Periwound Skin Appearance: Normal Wound edges: approximated Pain (associated with wound): none at time of assessment How does patient state this happened? pt stated that he has been treated for fungal in the past and the ointment is not working Bilateral heels are red and blanchable at time of assessment. No open areas noted at time of assessment. Surface the patient is resting on: Position Pro SKIN PREVENTION RECOMMENDATION: 1. Pressure redistribution support surface as appropriate 2. Elevate heels 3. Remove boots/TEDS every shift and reapply 4. Head of bed 30 degrees as tolerated 5. Assess nutrition and hydration 6. Manage moisture 7. Avoid the use of containment devices while in bed 8. Use absorptive products on surfaces limit layers of linens on bed 9. Turn and reposition every 1-2 hours in bed and every 1 hour in chair as tolerated 10. Weight shifts every 15 minutes while up in chair 11. Offloading with pillows or device to keep heels elevated off bed 12. Monitor skin at least every shift 13. Inspect under medical devices twice a day WOUND TREATMENT RECOMMENDATIONS: Heel raiser pro boots to bilateral feet while in bed. Cleanse areas to left side near ribs, mid back, left upper back and right upper back with soap and water and apply hydrocortison 0.5% BID. Cleanse abdominal fold and mina area with soap and water and pat dry then apply nystatin powder BID.
--- NOTE | 2019-05-18 08:55 | NUR ---
OFF FLOOR FOR BRONCH.
--- NOTE | 2019-05-18 09:33 | NUR ---
This nurse went to evaluate patient new skin impairment. Patient off the floor for procedure at this time. Spoke with Sandra JAY who was caring for patient and stated to have her give me a call upon he return to the unit.
--- NOTE | 2019-05-18 10:30 | NUR ---
Platform Stapler in to see patient. No new needs or request at this time. When medically stable he will be discharged to [facility] where he is a LTC resident. Per multidisciplinary discharge planning meeting he is having a bronchoscopy today. office workforce planner following.
--- NOTE | 2019-05-18 10:50 | NUR ---
PHYSICAL THERAPY Patient was out of his room this am for a medical procedure and not available for therapy at this time. Will continue per POC as able. Jeffrey Cruz, CURATOR MEDICAL MUSEUM
--- NOTE | 2019-05-18 11:54 | NUR ---
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
--- NOTE | 2019-05-18 12:21 | NUR ---
SPEECH IN TO SEE PT FOR EVAL.
[2019-05-18 12:58] LABS: BF LYMPHOCYTES 16 %; BF NEUTROPHILS 84 %
--- NOTE | 2019-05-18 12:58 | NUR ---
PER AUSTEN FROM SPEECH, PT IS OK TO HAVE A REGUALR DIET WITH THIN LIQUIDS BUT STILL RECOMMENDS MBS BE DONE TO RULE OUT SILENT ASPIRATION. NOTIFIED DR. ERICKSON. OK TO REORDER RENAL DIET WITHOUT RESTRICTIONS.
--- NOTE | 2019-05-18 13:04 | NUR ---
IN TO SEE PT. REQUESTIGN UA TO UC REFLEX BE ORDERED DUE TO INCREASED WBC. SEE ORDERS.
--- NOTE | 2019-05-18 13:16 | NUR ---
SPEECH PATHOLOGY Clinical swallowing evaluation completed to rule out aspiration. History is significant for acute respiratory failure, sepsis, HTN, DM, dementia, A-fib, exacerbation of COPD. Recent CXR shows progressive pneumonia and patient has been coughing and choking with liquids. Patient is known to this this dept. as he had been seen in the past through home health services. He had been on thick liquids in the past and through therapy was able to progress back to thin liquid. For assessment this date patient was alert and cooperative with generalized weakness displayed. His spouse was present. Oral motor exam was completed and revealed edentulous status and lingual/labial skills WFL in terms of strength, ROM and coordination. He was receiving O2 via NC. Patient was assessed with puree, coarse solid and thin liquid, which was consumed by sippy cup. Cues were required at times to slow down with liquids and take smaller amounts. This patient does display risk factors for aspiration and it is recommend he undergo a MBS as aspiration cannot be fully detected at bedside. Recommend he remain on a regular diet and thin liquid until completion of MBS with strategies including upright positioning for meals, cues as needed to take small bites and sips, alternate liquid and solid and eating slowly. Results and vijaya. were shared with patient, spouse and nurse and they verbalized understanding. Refer to report in [employer] for further information. Thank you for this referral. AUSTEN EDWARDS MSCCC-TABLE WORKER
--- NOTE | 2019-05-18 13:25 | NUR ---
PHYSICAL THERAPY Patient seen this pm 1:1 for therapy visit and was supine in bed with his present upon therapist arrival. Patient identified by name / and voices no new c/o's at this time. Patient was alert / fairly pleasant while transfering supine to sit EOB with MOD A x 1. Patient performed sit to stand MIN/ACCOUNT INSTALLER x 2, tolerating static stand at bedside approx 1 minute prior to quick onset of fatigue. Patient becomes quite nervous for fear of falling and needs several v/c's to safely complete all therapy task this session. Patient performed additional sit to stand MIN A x 1 and completed SPT to bedside chair ACCOUNT INSTALLER/MIN, demonstrating difficulty picking up feet while attempting to pivot towards chair. Patient also on continuous O2-5L via NC recording SpO2 98%. Patient instructed on, then performed seated B LE therex, all planes, x 15 reps each to increase LE strength and remained in chair with call light, tray table and body alarm as lunch tray arrived. Will continue per POC as tolerated, total treatment time 24 minutes. Jeffrey Cruz, BOOKBINDER CHIEF
[2019-05-18 13:31] LABS: BILIRUBIN NEGATIVE (NEGATIVE); BLOOD 2+ (NEGATIVE); CLARITY CLOUDY (CLEAR); COLOR YELLOW (YELLOW); GLUCOSE NEGATIVE (NEGATIVE); KETONE NEGATIVE (NEGATIVE); LEUKO ESTERASE TRACE (NEGATIVE); NITRITE NEGATIVE (NEGATIVE); PH 5.5 (5.0-9.0); UROBILINOGEN 0.2 E.U./dl (0.2-1.0)
[2019-05-18 13:52] LABS: WBC 31-40 wbc/hpf (0-5)
[2019-05-18 13:53] LABS: YEAST 4+
--- NOTE | 2019-05-18 14:55 | NUR ---
OFF FLOOR FOR MBS.
--- NOTE | 2019-05-18 15:16 | NUR ---
SPEECH PATHOLOGY Modified barium swallow completed as per orders to r/o aspiration due to coughing and choking with thin liquid. Results revealed silent penetration during the swallow with thin liquid, when taken in larger sip. When consuming a small sip of liquid, no penetration or aspiration occurred. Patient also displayed some pooling in valleculae post swallow with solid however this cleared with liquid wash. Recommend regular diet and thin liquid, with liquid in sippy cup which patient has been using, in order to decrease sip size. ALso recommend strategies including upright positioning and alternating liquid and solid. Follow up therapy is recommended for strengthening exercises, adherence to stratgies and education. Results and vijaya. were shared with patient and will also be shared with his spouse and nurse. Dictated report to follow. Thank you for this referral. AUSTEN EDWARDS MS [facility]
--- NOTE | 2019-05-18 15:20 | NUR ---
BACK TO ROOM FOLLOWING MBS.
--- NOTE | 2019-05-18 15:25 | NUR ---
SPOKE WITH AUSTEN, SPEECH THERAPIST. STATED THAT PT DID WELL WITH THE MBS AND THAT HE WILL NEED ENCOURAGEMENT FOR SMALL SIPS OF LIQUIDS. WHEN HE TOOK A LARGE SIP HE DID CHOKE/COUGH A LITTLE. RECOMMENDING SPIIY CUP USE AND STATED SHE WOULD CONTINUE TO WORK WITH HIM WHILE IN THE HOSPITAL.
--- NOTE | 2019-05-18 17:22 | NUR ---
Nursing screen received and chart reviewed. 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 He will return to LTC upon d/c. No further OT indicated at this time. Thank you. Destiney Dias OTR/L
--- NOTE | 2019-05-18 18:38 | NUR ---
PHYSICAL THERAPY Nursing screen received and chart reviewed. Physical therapy order received and completed 05/17/19. Thank you. Bekah Segovia,PT,DPT
--- NOTE | 2019-05-18 22:25 | NUR ---
BLOOD SUGAR 211
--- NOTE | 2019-05-18 23:11 | NUR ---
Hep Lock discontinued. Site asymptomatic. Pressure applied. Sterile dressing applied. IRWIN BUNCH
--- NOTE | 2019-05-18 23:12 | NUR ---
IV started left antecubital with #22 protective cath after 1 attempts. Site prepped with Chloroprep. Sterile dressing applied. Patient tolerated procedure well. IRWIN BUNCH
[2019-05-19] VITALS: BP 138/70
--- NOTE | 2019-05-19 01:18 | NUR ---
Patient resting quietly in bed. with no c/o discomfort. Periodically shouts and calls out for the nurse. Respirations easy and regular. Vital signs stable. No overt distress. Reoriented as needed. Bed alarm on. Side rails up. Call light within reach. IRWIN BUNCH
--- NOTE | 2019-05-19 02:00 | NUR ---
BLOOD SUGAR 101
--- NOTE | 2019-05-19 02:07 | NUR ---
24 HR chart check completed.
--- NOTE | 2019-05-19 03:49 | NUR ---
Patient sleeping. Respirations relaxed and easy. Siderails up . Wheellocks on. Side rails up. Bed alarm on. Call light within reach. HISSOM,IRWIN
--- NOTE | 2019-05-19 05:56 | NUR ---
BLOOD SUGAR 121
[2019-05-19 06:25] LABS: BASO % 0.2 % (0.0-1.0); EOS # 0.5 10*3/uL (0.0-0.4); EOS % 2.8 % (1.0-4.0); HEMATOCRIT 33.7 % (42.0-52.0); HEMOGLOBIN 10.1 g/dl (14.0-18.0); LYMPH # 1.4 10*3/uL (1.3-4.4); LYMPH % 8.6 % (27.0-41.0); MEAN CELL VOLUME 79.1 fl (80.0-94.0); MEAN CORPUSCULAR HGB 23.7 pg (27.0-31.0); MEAN PLATELET VOLUME 9.9 fl (9.6-12.3); MONO # 1.3 10*3/uL (0.1-1.0); MONO % 7.8 % (3.0-9.0); NEUT # 13.2 10*3/uL (2.3-7.9); PLATELET COUNT AUTOMATED 207 10*3/uL (130-400); RED BLOOD COUNT 4.26 10*6/uL (4.50-5.90); RED CELL DISTRI WIDTH 18.5 % (0-14.5); WHITE BLOOD COUNT 16.5 10*3/uL (4.8-10.8)
[2019-05-19 06:34] LABS: CREATININE 1.72 mg/dL (0.70-1.30); POTASSIUM 3.6 mmol/L (3.5-5.1)
--- NOTE | 2019-05-19 06:38 | NUR ---
ANNEJUANITA Edwards [id number] Please refer to the physician's history and physical for past medical history, comorbid conditions, and allergies. Diagnosis: ACUTE RESPIRATORY FAILURE SEPSIS Weston Score: 11,HIGH RISK WOUND DESCRIPTIONS: Wound Number: 1 Location of the wound: left buttocks Type of wound: stage 2 Thickness: Partial Size: 1.8cm x 2.0cm x 0.1cm Tunneling: none Undermining: none Sinus Tract: none Presence of Exudate: Serosanguineous Amount: Light Color: Red Odor: None Periwound Skin Appearance: Normal Wound edges: approximated Pain (associated with wound): none at time of assessment How does patient state this happened? pt unable to state how this happened Wound Number: 2 Location of the wound: Right side of scrotum Type of wound: stage 2 Thickness: Partial Size: 0.5cm x 0.3cm x 0.1cm Tunneling: none Undermining: none Sinus Tract: none Presence of Exudate: Serosanguineous Amount: Light Color: Red Odor: None Periwound Skin Appearance: Normal Wound edges: approximated Pain (associated with wound): none at time of assessment How does patient state this happened? pt unable to state how this happened Surface the patient is resting on: Position Pro SKIN PREVENTION RECOMMENDATION: 1. Pressure redistribution support surface as appropriate 2. Elevate heels 3. Remove boots/TEDS every shift and reapply 4. Head of bed 30 degrees as tolerated 5. Assess nutrition and hydration 6. Manage moisture 7. Avoid the use of containment devices while in bed 8. Use absorptive products on surfaces limit layers of linens on bed 9. Turn and reposition every 1-2 hours in bed and every 1 hour in chair as tolerated 10. Weight shifts every 15 minutes while up in chair 11. Offloading with pillows or device to keep heels elevated off bed 12. Monitor skin at least every shift 13. Inspect under medical devices twice a day WOUND TREATMENT RECOMMENDATIONS: Continue Wheelchair cushion when oob. Heel raiser pro boots to bilateral feet while in bed. Cleanse scrotum with soap and water and apply calazime every shift and prn for soiling. Continue stage 2 guidelines to left buttocks.
[2019-05-19 06:57] LABS: INTERNATIONAL NORM RATIO 1.8 (2.0-3.5)
[2019-05-19 08:00] VITALS: BP 144/88
--- NOTE | 2019-05-19 09:39 | NUR ---
SPEECH PATHOLOGY Patient was seen for treatment this am. He was alert and cooperative but with generalized weakness and rapid breathing pattern. He was wearing O2 via NC but appeared to become SOB easily, such as when talking in sentences or moving around in bed. Clinician reviewed results from yesterday's MBS. He was able to recall the results and was able to verbalize recommendation for thin liquid by sippy cup in small, single sips. He reported being compliant with this strategy during breakfast. Patient took sips of water by sippy cup during session in small, single sips. Patient performed pharyngeal exercises during session to target improved laryngeal elevation and tongue base movement. He required model, cue and frequent rest breaks. Continue therapy plan. AUSTEN EDWARDS MSCCC-CONCRETE VIBRATOR OPERATOR
--- NOTE | 2019-05-19 10:10 | NUR ---
PHYSICAL THERAPY Patient seen this am 1:1 for therapy visit and was supine in bed upon therapist arrival. Patient identified by name / and presented with continuous O2-3L via NC, IV treatment. Patient was a little restless in bed this morning, requiring several v/c's to focus on task. Patient transfers supine to sit EOB MOD A, tolerating EOB sit for a few minutes to collect himself. Patient then completed sit to stand transfer, MOD A, use of wh walker standing support, v'c to stand tall. Patient ambulated 12' x 1 around bottom of bed to bedside chair, MIN A, demonstating very unsteady gait pattern and decreased stride. Patient will also demonstrate mild B UE shaking when he becomes anxious and needs v/c to relax due to fear of falling. Patient remained in bedside chair with call light, telephone, tray table and body alarm for safety. Will continue per POC as tolerated, total treeatemnt time 14 minutes. Jeffrey Cruz, PULP BLEACHER
[2019-05-19 12:00] VITALS: BP 148/86
--- NOTE | 2019-05-19 14:12 | NUR ---
Elementary Secretary in to see patient. No new needs or request at this time. When medically stable he will be discharged to [facility] where he is a LTC resident. demand planner following. Per multidisciplinary discharge planning meeting Dr. García is awaiting bronch culture to finalize antibiotics.
[2019-05-19 16:00] VITALS: BP 137/68
[2019-05-19 17:06] LABS: ACID FAST SPEC PROCESSING Concentration (.)
[2019-05-19 20:00] VITALS: BP 150/43
--- NOTE | 2019-05-19 20:13 | NUR ---
BLOOD SUGAR 308
--- NOTE | 2019-05-20 | NUR ---
BLOOD SUGAR 171
--- NOTE | 2019-05-20 01:30 | NUR ---
Patient resting quietly with no c/o discomfort. Respirations easy and regular. Vital signs stable. No overt distress. OXYGEN AT 3L VIA NASAL CANNULA. SIDE RAILS UP. BED ALARM ON. CALL LIGHT WITHIN REACH HISSOM,IRWIN
--- NOTE | 2019-05-20 02:08 | NUR ---
24 HR chart check completed.
--- NOTE | 2019-05-20 03:56 | NUR ---
BLOOD SUGAR 111
--- NOTE | 2019-05-20 04:18 | NUR ---
Patient sleeping. Respirations relaxed and easy. Siderails up . Wheellocks on. BED ALARM ON. OXYGEN 3L VIA NASAL CANNULA INTACT. CALL LIGHT WITHIN REACH HISSOM,IRWIN
--- NOTE | 2019-05-20 06:23 | NUR ---
BLOOD SUGAR 151
[2019-05-20 08:00] VITALS: BP 100/62
[2019-05-20] MEDS ORDERED: Lantus SC (08:34)
--- NOTE | 2019-05-20 08:49 | NUR ---
SPEECH PATHOLOGY Patient was seen for swallowing treatment this am. Treatment was conducted during lunchtime meal. Patient was alert and cooperative but restless and easily SOB. Rapid respirations were displayed as well as congested cough at rest. At times he coughed up thick discolored mucous. Patient fed himself at start of meal but after eventually stated "I can't do this." Clinician asked if he wanted assistance eating and he stated "yes" and was therefore fed the remainder of the meal. He tolerated food and thin liquid with no overt s/s aspiration. Safe swallow precautions were implemented. When patient was self feeding he needed minimal cues to take small sips of liquid. His overall intake was about 50%. Recommend he remain on regular diet and thin liquids with small,single sips of liquid. He remains at risk for aspiration due to his status therefore continued therapy is warranted. AUSTEN EDWARDS MSCCC-CERAMICS TECHNICIAN was
--- NOTE | 2019-05-20 09:00 | NUR ---
Salvationist in to see patient. No new needs or request at this time. When medically stable he will be discharged to [facility] where he is a LTC resident. case planner following. Per Dr. García the plan will be to discharge the patient tomorrow to [facility].
[2019-05-20 12:00] VITALS: BP 102/65
--- NOTE | 2019-05-20 14:20 | NUR ---
PHYSICAL THERAPY Patient seen this pm 1;1 for therapy visit and was resting supine in bed upon therapist arrival. Patient identified by name / and presented with continuos O2-3L via NC, IV treatment. Patients was also present during therapy visit as patient voices no c/o's pain. Patient transfers supine to sit EOB with MOD A, tolerating several minutes static EOB sit SBA. Patient performed several sit to stand transfers at bedside MIN A, demonstrating "slouched" upright posture with use of wh walker. Patient also completed SPT to bedside chair, MIN A, wh walker, with v/c for safe step sequence and proper hand placement prior to sitting down in chair. Patient remained in chair with body alarm for safety, call light and telephone. Will continue per POC as tolerated, total treatment time 14 minutes. Jeffrey Cruz, EDGE RUNNER
--- NOTE | 2019-05-20 14:52 | NUR ---
POWER HAMMER OPERATOR faxed updates to [facility].
[2019-05-20 16:00] VITALS: BP 125/66
[2019-05-20 20:00] VITALS: BP 136/71
--- NOTE | 2019-05-20 22:16 | NUR ---
PATIENT MEDICATED WITH HALDOL 1MG IM PER PRN ORDER FOR AGGITATION AND AGGRESSION TOWARD STAFF.
[2019-05-21] VITALS: BP 146/58
--- NOTE | 2019-05-21 02:55 | NUR ---
PATIENT C/O LOWER ABDOMEN PAIN. PATIENT BLADDER SCANNED. RESULT GR [id number]. DR ERICKSON NOTIED. ORDER TO STRAIGHT CATH X 1 RECEIVED.
--- NOTE | 2019-05-21 03:15 | NUR ---
PATIENT STRAIGHT CATHETED FOR 625 CC LT YELLOW URINE.
--- NOTE | 2019-05-21 05:36 | NUR ---
JUANITA RODRÍGUEZ [id number] Please refer to the physician's history and physical for past medical history, comorbid conditions, and allergies. Diagnosis: ACUTE RESPIRATORY FAILURE SEPSIS Weston Score: 11,HIGH RISK WOUND DESCRIPTIONS: Wound Number: 4 Location of the wound: right ear Type of wound: medical illustrator related pressure injury stage 4 Thickness: Partial Size: 0.3cm x 0.2cm x 0.1cm Tunneling: none Undermining: none Sinus Tract: none Presence of Exudate: Serosanguineous Amount: Light Color: Red Odor: None Periwound Skin Appearance: Normal Wound edges: approximated Pain (associated with wound): none at time of assessment How does patient state this happened? pt stated behind his ear hurt under the oxygen tubing upon assessment skin impairment noted EarMates applied to oxygen tubing at time of assessment. Surface the patient is resting on: Position Pro SKIN PREVENTION RECOMMENDATION: 1. Pressure redistribution support surface as appropriate 2. Elevate heels 3. Remove boots/TEDS every shift and reapply 4. Head of bed 30 degrees as tolerated 5. Assess nutrition and hydration 6. Manage moisture 7. Avoid the use of containment devices while in bed 8. Use absorptive products on surfaces limit layers of linens on bed 9. Turn and reposition every 1-2 hours in bed and every 1 hour in chair as tolerated 10. Weight shifts every 15 minutes while up in chair 11. Offloading with pillows or device to keep heels elevated off bed 12. Monitor skin at least every shift 13. Inspect under medical devices twice a day WOUND TREATMENT RECOMMENDATIONS: Cleanse right ear with nss and apply sureprep around the wound hydrogel to wound bed and cover with dsd daily and prn for soiling.
[2019-05-21 06:51] LABS: BASO % 0.4 % (0.0-1.0); EOS # 0.3 10*3/uL (0.0-0.4); HEMOGLOBIN 9.8 g/dl (14.0-18.0); LYMPH # 1.1 10*3/uL (1.3-4.4); MEAN CELL VOLUME 80.8 fl (80.0-94.0); MEAN CORPUSCULAR HGB 23.3 pg (27.0-31.0); MEAN CORPUSCULAR HGB CONC 28.8 g/dl (33.0-37.0); MEAN PLATELET VOLUME 10.1 fl (9.6-12.3); MONO % 10.2 % (3.0-9.0); NEUT # 7.5 10*3/uL (2.3-7.9); NEUT % 74.9 % (47.0-73.0); PLATELET COUNT AUTOMATED 243 10*3/uL (130-400); RED BLOOD COUNT 4.21 10*6/uL (4.50-5.90); RED CELL DISTRI WIDTH 18.5 % (0-14.5)
[2019-05-21 07:07] LABS: CREATININE 1.92 mg/dL (0.70-1.30); POTASSIUM 3.7 mmol/L (3.5-5.1)
[2019-05-21 07:24] LABS: INTERNATIONAL NORM RATIO 2.2 (2.0-3.5)
--- NOTE | 2019-05-21 07:30 | NUR ---
PT AWAKE. BEDSIDE REPORT RECEIVED FROM PATRIC JAY
--- NOTE | 2019-05-21 07:54 | NUR ---
DR ERICKSON IN TO SEE PT. IV LASIX 20 MG NOW. PT WILL RETURN TO [facility] TODAY.
[2019-05-21 08:00] VITALS: BP 124/68
--- NOTE | 2019-05-21 08:11 | NUR ---
PHYSICAL THERAPY Pt is already on PT caseload. Thank you Cara Connolly, PT, DPT
--- NOTE | 2019-05-21 08:15 | NUR ---
PHYSICAL THERAPY Patient seen this am 1;1 for therapy visit and was just awakening supine in bed with patient attendant present upon therapist arrival. Patient identified by name / and reported no c/o's pain at this time. Patient presents with continuous O2-3L via NC and transfers supine to sit EOB with MOD A. Patient performed sit to stand transfer MIN A, completing SPT to bedside chair CGA x1 with use of wh walker standing support. Patient needed several v/c's to safely complete SPT due to POOR step sequence and increased anxiety secondary for fear of falling. Patient needed brief seated rest prior to performing seated B LE therex, all planes, x 15 reps each to increase LE strength. Patient remained in chair with call light, tray table, telephone and body alarm awaiting breakfast. Will continue per POC as tolerated, total treatment time 17 minutes. Jeffrey Cruz, ABSENCE MANAGEMENT CONSULTANT
--- NOTE | 2019-05-21 08:38 | NUR ---
Patient discharged to return to [facility], transportation scheduled for 9:30 AM, ID nursing and Alana Catalan all notified.
--- NOTE | 2019-05-21 09:38 | NUR ---
PT LEFT FLOOR VIA STRETCHER IN THE CARE OF AMBULANCE SERVICE. PACKET SENT TO [facility]. ATTEMPTED TO CALL REPORT X2 BUT NO ONE WILL ANSWER. WILL TRY AGAIN
--- NOTE | 2019-05-21 09:53 | NUR ---
REPORT CALLED TO TIERRA AT [facility]
--- NOTE | 2019-05-21 15:11 | NUR ---
Nursing screen received. Patient discharged 05/21/19 before screen completed. Thank you. Destiney Dias OTr/L
--- NOTE | 2019-05-22 08:05 | NUR ---
PHYSICAL THERAPY CO-SIGN I approve of the Physical Therapy notes written above Monika Orellana PT
--- NOTE | 2019-05-22 08:06 | NUR ---
PHYSICAL THERAPY CO-SIGN I approve of the Physical Therapy notes written above. Monika Orellana PT
[2019-06-11 18:07] LABS: ACID FAST CULTURE Positive (.); M AVIUM COMPLEX Positive (.); M GORDONAE Not Indicated (.); M KANSASII Not Indicated (.); M TUBERCULOSIS COMPLEX Negative (.)
== END 2019-05-21 09:38 | disposition other institution (70) | DRG 871 ==
LOC: ED 13:53 → 4E 14:54 → EDHOLD 14:54 → 4E 15:10
PROVIDERS: Emergency Medicine; Internal Medicine Critical Care Medicine; Internal Medicine Nephrology; ADMIT Internal Medicine
PROC: 0BC78ZZ Extirpation of Matter from Left Main Bronchus, Via Natural or Artificial Opening Endoscopic (ICD-10-PCS; principal; 2019-05-18)
PROC: 0BCB8ZZ Extirpation of Matter from Left Lower Lobe Bronchus, Via Natural or Artificial Opening Endoscopic (ICD-10-PCS; principal; 2019-05-18)
PROC: 0BC98ZZ Extirpation of Matter from Lingula Bronchus, Via Natural or Artificial Opening Endoscopic (ICD-10-PCS; principal; 2019-05-18)
PROC: 0BC18ZZ Extirpation of Matter from Trachea, Via Natural or Artificial Opening Endoscopic (ICD-10-PCS; principal; 2019-05-18)
PROC: 0BC68ZZ Extirpation of Matter from Right Lower Lobe Bronchus, Via Natural or Artificial Opening Endoscopic (ICD-10-PCS; principal; 2019-05-18)
PROC: BD1BYZZ Fluoroscopy of Mouth/Oropharynx using Other Contrast (ICD-10-PCS; principal; 2019-05-18)
PROC: 0BC88ZZ Extirpation of Matter from Left Upper Lobe Bronchus, Via Natural or Artificial Opening Endoscopic (ICD-10-PCS; principal; 2019-05-18)
PROC: 0BC38ZZ Extirpation of Matter from Right Main Bronchus, Via Natural or Artificial Opening Endoscopic (ICD-10-PCS; principal; 2019-05-18)
PROC: 0BC58ZZ Extirpation of Matter from Right Middle Lobe Bronchus, Via Natural or Artificial Opening Endoscopic (ICD-10-PCS; principal; 2019-05-18)
PROC: 0BC48ZZ Extirpation of Matter from Right Upper Lobe Bronchus, Via Natural or Artificial Opening Endoscopic (ICD-10-PCS; principal; 2019-05-18)
PROC: 02HV33Z Insertion of Infusion Device into Superior Vena Cava, Percutaneous Approach (ICD-10-PCS; 2019-05-20)
DX: A41.9 Sepsis, unspecified organism (principal); J18.9 Pneumonia, unspecified organism; N17.0 Acute kidney failure with tubular necrosis; I50.31 Acute diastolic (congestive) heart failure; J96.01 Acute respiratory failure with hypoxia; J44.1 Chronic obstructive pulmonary disease with (acute) exacerbation; I13.0 Hypertensive heart and chronic kidney disease with heart failure and stage 1 through stage 4 chronic kidney disease, or unspecified chronic kidney disease; G12.29 Other motor neuron disease; F23 Brief psychotic disorder; J44.0 Chronic obstructive pulmonary disease with (acute) lower respiratory infection; F33.1 Major depressive disorder, recurrent, moderate; D68.9 Coagulation defect, unspecified; N18.3 Chronic kidney disease, stage 3 (moderate); E11.40 Type 2 diabetes mellitus with diabetic neuropathy, unspecified; Z66 Do not resuscitate; F48.2 Pseudobulbar affect; R62.7 Adult failure to thrive; G47.00 Insomnia, unspecified; E11.65 Type 2 diabetes mellitus with hyperglycemia; J20.9 Acute bronchitis, unspecified; N40.1 Benign prostatic hyperplasia with lower urinary tract symptoms; R33.8 Other retention of urine; E66.9 Obesity, unspecified; K21.9 Gastro-esophageal reflux disease without esophagitis; Z51.5 Encounter for palliative care; Z96.653 Presence of artificial knee joint, bilateral; Z96.1 Presence of intraocular lens; I25.10 Atherosclerotic heart disease of native coronary artery without angina pectoris; E87.5 Hyperkalemia; E87.6 Hypokalemia; E83.51 Hypocalcemia; G30.1 Alzheimer's disease with late onset; F02.80 Dementia in other diseases classified elsewhere, unspecified severity, without behavioral disturbance, psychotic disturbance, mood disturbance, and anxiety; E03.9 Hypothyroidism, unspecified; E78.2 Mixed hyperlipidemia; E11.22 Type 2 diabetes mellitus with diabetic chronic kidney disease; F41.1 Generalized anxiety disorder; I48.21 Permanent atrial fibrillation; Z79.01 Long term (current) use of anticoagulants; Z79.4 Long term (current) use of insulin; Z88.2 Allergy status to sulfonamides; Z88.8 Allergy status to other drugs, medicaments and biological substances; Z98.49 Cataract extraction status, unspecified eye; Z81.1 Family history of alcohol abuse and dependence; Z82.0 Family history of epilepsy and other diseases of the nervous system; Z98.42 Cataract extraction status, left eye; Z98.41 Cataract extraction status, right eye; Z79.899 Other long term (current) drug therapy; Z68.34 Body mass index [BMI] 34.0-34.9, adult

== ENCOUNTER → 2019-08-24 | Outpatient (CLI) | payer MEDICARE ==
[~2019-08-24] MED LIST changes: +COUMADIN6 M2 PO; +Ipratropium Brom3 ML INH; +LINZESS145 MC1 PO; +Lantus SC; +RISPERDAL1 M1 PO; +TRULICITY0.75 MG/0. SC; +XANAX0.25 MG PO
== END | disposition home or self-care (01) ==
LOC: CT 00:26
DX: R59.0 Localized enlarged lymph nodes (principal); J90 Pleural effusion, not elsewhere classified; I25.10 Atherosclerotic heart disease of native coronary artery without angina pectoris